=== PATIENT | female | born 1975 | race Caucasian/White ===

== ENCOUNTER 2018-07-04 20:44 | Emergency (ER) | payer MEDICARE, MEDICAID ==
[~2018-07-04] VITALS: Ht 167.6 cm; Wt 90.7 kg
[2018-07-04] MEDS ORDERED: NS IV 1000 ML 1,000 ML IV STA (21:07)
[2018-07-04] MEDS ORDERED: diphenhydrAMINE 50 MG/ML INJ (BENADRYL) IVP STA (21:07)
[2018-07-04] MEDS ORDERED: METOCLOPRAMIDE INJ 10 MG/2 ML (REGLAN) IVP STA (21:07)
[2018-07-04] MEDS ORDERED: LEVETIRACETAM 100 MG/ML (21:15)
[2018-07-04] MEDS ORDERED: MONTELUKAST 10MG TABLETS (21:15)
[2018-07-04] MEDS ORDERED: GABAPENTIN CAP 300MG (21:15)
[2018-07-04] MEDS ORDERED: SUCRALFATE 1 GM (21:15)
[2018-07-04] MEDS ORDERED: JANUVIA 100 MG (21:15)
[2018-07-04] MEDS ORDERED: LISINOPRIL 20MG TABLETS (21:15)
[2018-07-04] MEDS ORDERED: BACLOFEN 20 MG ×2 (21:15)
[2018-07-04] MEDS ORDERED: METOPROLOL TARTRATE 50 MG (21:15)
[2018-07-04] MEDS ORDERED: POTASSIUM CL 10MEQ ER TABLETS (21:15)
[2018-07-04] MEDS ORDERED: FAMO40TA39 (21:16)
--- NOTE | 2018-07-04 21:16 | ED Headache ---
General Chief Complaint: Head/Cervical Problems Stated Complaint: HEADACHE Nursing Triage Note: pt and ems report pt with steiner and chest pain starting at 1999. pt with hx of cva with right side arm paralysis and right leg with limited movement Nursing Sepsis Screen: No Definite Risk Source: patient, family, EMS Exam Limitations: physical impairment History of Present Illness Date Seen by Provider: Jul 04, 2018 Time Seen by Provider: 20:58 This is a 43-year-old female with a history of hypertension, diabetes, stroke with chronic right-sided weakness and expressive aphasia here for headache and chest pain that began tonight. She had a similar headache about a week ago but did not seek medical treatment at that time. The headache started at rest at approximately 8 PM, mom gave patient an oxycodone but ultimately the headache did not go away and she called EMS. Patient was hypertensive, EMS reports a blood pressure in the 170s over 100s range, they treated the patient with 100 g of fentanyl and 4 mg of Zofran. Mom at the bedside does not note any new neurologic deficits tonight. The complaint of chest pain is a new complaint for the patient, there is no known history of coronary artery disease. Allergies and Home Medications Allergies Coded Allergies: cefazolin (Verified Allergy, Unknown, 07/04/18) enoxaparin (Verified Allergy, Unknown, 07/04/18) Uncoded Allergies: PENICILLIN (Allergy, Unknown, 07/04/18) Home Medications Famotidine 40 Mg Tablet, BID, (Reported) Patient Home Medication List Home Medication List Reviewed: Yes Review of Systems Review of Systems Constitutional: no symptoms reported (complete review of systems is unobtainable secondary to expressive aphasia) Cardiovascular: chest pain Psychiatric/Neurological: Headache, Pre-Existing Deficit Past Rhoixpe-Dnegzw-Kqijnx Hx Patient Social History Alcohol Use: Denies Use Recreational Drug Use: No Smoking Status: Never a Smoker 2nd Hand Smoke Exposure: No Recent Foreign Travel: No Contact w/Someone Who Travel: No Recent Infectious Disease Expo: No Recent Hopitalizations: No Physical Abuse: No Sexual Abuse: No Mistreated: No Fear: No Seasonal Allergies Seasonal Allergies: No Past Medical History Respiratory: No Cardiac: No Neurological: Yes (2013 cva) Headaches /Migraines, Paralysis, Spinal Cord Injury Genitourinary: No Gastrointestinal: No Musculoskeletal: No Endocrine: No HEENT: No Cancer: No Psychosocial: No Integumentary: No Blood Disorders: No Physical Exam Vital Signs Vital Signs - First Documented 07/04/18 07/04/18 20:57 22:00 Temp 97.6 Pulse 99 Resp 18 B/P (MAP) 117/101 (106) Pulse Ox 97 O2 Delivery Nasal Cannula O2 Flow Rate 2.00 Capillary Refill : Less Than 3 Seconds Height, Weight, BMI Height: 5'6.00" Weight: 200lbs. oz. 90.653522tf; BMI Method:Stated General Appearance: other (patient appears mildly uncomfortable) HEENT: other (because members are slightly dry. No conjunctival injection. Extraocular muscles are intact. There is anisocoria with right pupil approximately 6 mm, left pupil approximately 4 mm and both are sluggishly reactive) Neck: supple Cardiovascular: normal peripheral pulses, regular rate, rhythm, other ( palpation of the anterior chest causes patient to wince, there are no other palpatory abnormalities) Respiratory: lungs clear, no respiratory distress Gastrointestinal: non tender, soft Psychiatric: alert Crainal Nerves: other (there is mild right lower facial weakness, anisocoria as described above, otherwise cranial nerves appear to be intact) Coordination/Gait: other (grossly normal coordination of the upper and lower extremity) Motor/Sensory: other (baseline right upper and right lower extremity weakness, left upper and left lower extremity have 5 out of 5 strength) Progress/Results/Core Measures Results/Orders Lab Results Laboratory Tests Test 07/04/18 21:09 07/04/18 23:50 Range/Units White Blood Count 11.6 H 4.3-11.0 10^3/uL Red Blood Count 4.76 4.35-5.85 10^6/uL Hemoglobin 10.0 L 11.5-16.0 G/DL Hematocrit 34 L 35-52 % Mean Corpuscular Volume 72 L 80-99 FL Mean Corpuscular Hemoglobin 21 L 25-34 PG Mean Corpuscular Hemoglobin Concent 29 L 32-36 G/DL Red Cell Distribution Width 17.6 H 10.0-14.5 % Platelet Count 247 130-400 10^3/uL Mean Platelet Volume 11.9 H 7.4-10.4 FL Prothrombin Time 12.8 12.2-14.7 SEC INR Comment 1.0 0.8-1.4 Activated Partial Thromboplast Time 28 24-35 SEC Sodium Level 131 L 135-145 MMOL/L Potassium Level 4.3 3.6-5.0 MMOL/L Chloride Level 94 L 98-107 MMOL/L Carbon Dioxide Level 20 L 21-32 MMOL/L Anion Gap 17 H 5-14 MMOL/L Blood Urea Nitrogen 9 7-18 MG/DL Creatinine 0.43 L 0.60-1.30 MG/DL Estimat Glomerular Filtration Rate > 60 BUN/Creatinine Ratio 21 Glucose Level 421 *H 70-105 MG/DL Calcium Level 8.8 8.5-10.1 MG/DL Corrected Calcium 9.3 8.5-10.1 MG/DL Magnesium Level 1.6 L 1.8-2.4 MG/DL Total Bilirubin 0.2 0.1-1.0 MG/DL Aspartate Amino Transf (AST/SGOT) 27 5-34 U/L Alanine Aminotransferase (ALT/SGPT) 28 0-55 U/L Alkaline Phosphatase 146 H 40-136 U/L Troponin T 6 <=10 NG/L Total Protein 6.9 6.4-8.2 GM/DL Albumin 3.4 3.2-4.5 GM/DL Glucometer 373 H 70-110 MG/DL My Orders Orders - ANNIE NNACE DO Magnesium (07/04/18 20:49) Chest 1 View Ap/Pa Only (07/04/18 20:49) Ekg Tracing (07/04/18 20:49) Cardiac Profile 1 (07/04/18 20:49) Comprehensive Metabolic Panel (07/04/18 20:49) Protime With Inr (07/04/18 20:49) Partial Thromboplastin Time (07/04/18 20:49) Monitor-Rhythm Ecg Trace Only (07/04/18 20:49) Saline Lock/Iv-Start (07/04/18 20:49) Cbc No Diff (07/04/18 20:49) Ct Angio Head/Neck (07/04/18 21:05) Metoclopramide Injection (Reglan Injecti (07/04/18 21:07) Diphenhydramine Injection (Benadryl Inje (07/04/18 21:07) Ns Iv 1000 Ml (Sodium Chloride 0.9%) (07/04/18 21:07) Iopamidol 61% Injection (Isovue 300 61% (07/04/18 21:30) Sodium Chloride Flush (Catheter Flush Sy (07/04/18 21:30) Received Contrast (Contrast Received) (07/04/18 21:30) Ns (Ivpb) (Sodium Chloride 0.9% Ivpb Bag (07/04/18 21:30) Insulin (Regular) Human (Humulin R (Per (07/04/18 22:27) Medications Given in ED Current Medications Medications Dose Ordered Sig/Milly Route Start Time Stop Time Status Last Admin Dose Admin Iopamidol 100 ml ONCE ONCE IV 07/04/18 21:30 07/04/18 21:47 DC 07/04/18 21:55 100 ML Sodium Chloride 10 ml NEEDED PRN IV 07/04/18 21:30 07/04/18 21:56 10 ML Sodium Chloride 50 ml ONCE ONCE IV 07/04/18 21:30 07/04/18 21:48 DC 07/04/18 21:56 50 ML Vital Signs/I&O 07/04/18 07/04/18 07/04/18 20:57 22:00 23:38 Temp 97.6 Pulse 99 98 102 Resp 18 15 18 B/P (MAP) 117/101 (106) 122/73 (89) 121/77 (92) Pulse Ox 97 97 96 O2 Delivery Nasal Cannula Nasal Cannula O2 Flow Rate 2.00 2.00 2.00 07/05/18 00:00 Intake Total 1000 ml Balance 1000 ml Blood Pressure Mean: 106 Progress Progress Note #1: Progress Note This is a 43-year-old female with a history of a stroke with chronic right- sided deficits here for headache and chest pain. She is hypertensive. There is no evidence of new neurologic deficit. Patient is not in respiratory distress and has no signs of acute CHF. We will treat her now with Reglan and Benadryl as she has already received oxycodone by mouth and an injection of fentanyl and Zofran by EMS. We will obtain a CT of the brain. Given any consideration of subarachnoid hemorrhage in the differential we will obtain a CT angiogram of the head and also given history provided by mom of neck trauma prior to her stroke in 2013 we will include a CT angiogram of the neck. We will obtain ECG, chest x-ray, troponin. Given patient's risk factors for coronary artery disease , her hypertensive urgency upon arrival, and any limitation in history I feel it is prudent to admit patient for observation once our results have returned. Progress Note #2: Progress Note Patient has returned from imaging, there is some improvement although it is difficult for patient characterized the degree of improvement. She does not appear to be in distress. Blood pressure is improved. We will continue to monitor. Patient does not follow-up with a neurosurgeon although she apparently has a history of a craniotomy. I was unable to palpate shunt tubing around the skull or the neck and mom is not sure of any history of shunt placement. There is no tenderness in that area however. 9 units of IV insulin are administered for hyperglycemia. Progress Note #3: Progress Note Patient was accepted for transfer at 11:[address] Hanna at [facility]. EKG : Comment 2047: Normal sinus rhythm rate of 99. T-wave inversions in V3 and 3. Delayed precordial R-wave progression. Normal axis. Diagnostic Imaging Diagonstic Imaging: Xray Comments EP interpretation: Patient is slightly rotated but airways approximately midline. Low lung volumes. No obvious bony abnormalities. Note made of a left- sided CHAPERONE shunt although entire course is not visualized, there is obscuration of the left costophrenic margin, heart size is top of normal for this AP study, the horizontal fissure is prominent, no pneumothoraces Reviewed: Reviewed by Me Critical Care Note Critical Care Start Time: 23:21 Stop Time: 23:56 Total Time (minutes) 35 Progress Critical care time is exclusive of time spent on separately billable procedures. Risk to multiple organ systems from hypertensive urgency, chest pain , hyperglycemia, time spent at bedside, frequent reassessments, interpretation of EKG, chest x-ray, discussion with radiologist and admitting hospitalist at outside hospital. Departure Impression Primary Impression: Headache Additional Impressions: Hypertensive urgency Chest pain Hyperglycemia T wave inversion in EKG Disposition: 02 XFER SHT-TRM HOSP Condition: Stable Transfer Time Spoke to Accepting Phy: 23:53 Transfer Facility: [facility], accepted by Dr Hanna Method of Transfer: EMS Departure-Patient Inst. Referrals: NO,LOCAL PHYSICIAN (PCP) Primary Care Physician ANNIE NACNE DO Jul 04, 2018 21:16
[2018-07-04 21:22] LABS: WHITE BLOOD COUNT 11.6 10^3/uL (4.3-11.0)
[2018-07-04 21:23] LABS: MEAN PLATELET VOLUME 11.9 FL (7.4-10.4); RED CELL DISTRIBUTION WIDTH 17.6 % (10.0-14.5)
[2018-07-04] MEDS ORDERED: RECEIVED CONTRAST 20 ML VIAL IV SCH (21:30)
[2018-07-04] MEDS ORDERED: NS 50 ML (IVPB) BAG IV ONE (21:30)
[2018-07-04] MEDS ORDERED: CATHETER FLUSH 10 ML SYR IV PRN (21:30)
[2018-07-04] MEDS ORDERED: IOPAMIDOL 61% 100 ML (ISOVUE 300) VIAL IV ONE (21:30)
[2018-07-04 21:45] LABS: PROTHROMBIN TIME PATIENT 12.8 SEC (12.2-14.7)
[2018-07-04 22:00] VITALS: BP 122/73
[2018-07-04 22:01] LABS: BUN/CREATININE RATIO 21; CARBON DIOXIDE 20 MMOL/L (21-32); CHLORIDE 94 MMOL/L (98-107); CREATININE SERUM 0.43 MG/DL (0.60-1.30); GFR ESTIMATED > 60; POTASSIUM 4.3 MMOL/L (3.6-5.0); SODIUM 131 MMOL/L (135-145)
[2018-07-04 22:04] LABS: ALANINE AMINOTRANSFERASE 28 U/L (0-55); ALBUMIN 3.4 GM/DL (3.2-4.5); ALKALINE PHOSPHATASE 146 U/L (40-136); BILIRUBIN,TOTAL 0.2 MG/DL (0.1-1.0); CALCIUM 8.8 MG/DL (8.5-10.1); GLUCOSE 421 MG/DL (70-105); MAGNESIUM 1.6 MG/DL (1.8-2.4); TOTAL PROTEIN 6.9 GM/DL (6.4-8.2)
[2018-07-04] MEDS ORDERED: inSUlin (REGULAR) HUMAN 1 UNIT/0.01 ML (CHARGE PER UNIT) IV STA (22:27)
[2018-07-04 23:38] VITALS: BP 121/77
[2018-07-05 01:10] VITALS: BP 133/81
--- NOTE | 2018-07-05 07:52 | Diagnostic Imaging Report ---
INDICATION: Headache, chest pain, right-sided arm paralysis and limited leg movements. Palpitations. EXAMINATION: Chest 07/04/2018 FINDINGS: Single view frontal chest demonstrates mild prominence of the heart possibly due to the portable technique and low lung volumes. There is atelectasis versus early infiltrates at the bases left greater than right. No significant effusions. No pneumothorax. Pulmonary vasculature unremarkable. IMPRESSION: 1. Densities at the lung bases see above discussion. Dictated by: Dictated on workstation # [id number]
--- NOTE | 2018-07-05 08:25 | Diagnostic Imaging Report ---
INDICATION: Headache with history of stroke and right arm and leg weakness. TECHNIQUE: CTA of the head and neck obtained with axial slices with IV contrast bolus and sagittal and coronal and MIP reconstructions. A pre contrast brain CT was also performed. FINDINGS: Pre contrast brain CT demonstrates a large old left MCA territory infarct. There is no acute intracranial hemorrhage. There is no mass effect or midline shift. Patient has had previous left-sided craniotomy. There is ex-vacuo prominence of the left lateral ventricle due to volume loss. There is no acute-appearing intracranial abnormality. CTA neck findings: The aortic arch and great vessel origins appear unremarkable. There is an anatomic variant of the left vertebral artery arising directly from the arch. Bolus timing is very limited in the neck but the carotid territories and vertebrals appear to be patent. There is no soft tissue mass or adenopathy in the neck region. CTA head findings: CTA head images are very limited due to poor bolus timing. The distal internal carotid arteries and anterior cerebral arteries and middle cerebral arteries appear to be patent. The basilar artery and posterior cerebral arteries appear to be patent. There is patency of the dural venous sinuses. IMPRESSION: 1. CTA head demonstrates a large old left MCA territory infarct with associated volume loss. Patient has had a previous left-sided craniotomy. There is no acute intracranial hemorrhage or definite acute finding. 2. CTA of the neck was very limited by bolus timing. No definite stenotic lesion or occlusion was seen. 3. CTA of the head was also very limited by bolus timing. No overt major vessel stenosis or occlusion was seen. Dictated by: Dictated on workstation # [id number]
== END 2018-07-05 01:10 | disposition short-term general hospital (02) ==
LOC: ER FS 20:47
DX: R51 Headache (principal); I10 Essential (primary) hypertension; I16.0 Hypertensive urgency; E11.65 Type 2 diabetes mellitus with hyperglycemia; R94.31 Abnormal electrocardiogram [ECG] [EKG]; R07.9 Chest pain, unspecified; Z86.69 Personal history of other diseases of the nervous system and sense organs; Z86.73 Personal history of transient ischemic attack (TIA), and cerebral infarction without residual deficits; Z88.0 Allergy status to penicillin; Z88.8 Allergy status to other drugs, medicaments and biological substances
CPT/HCPCS: 36415; 70496; 70498; 71045; 80053; 82962; 83735; 84484; 85027; 85610; 85730

== ENCOUNTER 2018-07-19 15:45 | Emergency (ER) | payer MEDICARE, MEDICAID ==
[~2018-07-19] VITALS: Ht 157.5 cm; Wt 96.6 kg
[~2018-07-19 15:45] MED LIST: BACLOFEN 20 MG; FAMO40TA39; GABAPENTIN CAP 300MG; JANUVIA 100 MG; LEVETIRACETAM 100 MG/ML; LISINOPRIL 20MG TABLETS; METOPROLOL TARTRATE 50 MG; MONTELUKAST 10MG TABLETS; POTASSIUM CL 10MEQ ER TABLETS; SUCRALFATE 1 GM
[2018-07-19] MEDS ORDERED: NITROGLYCERIN 0.4 MG SL TABS BTL 25'S SL PRN (16:00)
[2018-07-19] MEDS ORDERED: ASPIRIN 81 MG CHEW (CHILDREN'S ASA) PO ONE (16:00)
--- NOTE | 2018-07-19 16:02 | ED Chest Pain ---
General Stated Complaint: CHEST PAINS Source: patient Exam Limitations: no limitations (BALBIR CACERES) History of Present Illness Date Seen by Provider: Jul 19, 2018 Time Seen by Provider: 15:46 Initial Comments The patient presents to ER by private conveyance with her family member and chief complaint that about an hour ago while visiting some family and [place], [place] as they got into an argument with her daughter made her very upset and then began to have chest pain on the left side of her chest radiating to her left breast but not the shoulders jaw or neck. She's having no nausea sweats or chills. She describes shortness of breath but no cough fevers or diarrhea. She does have a significant history for hypertension, hypercholesterolemia and diabetes but no hypothyroidism, smoking or coronary disease. She does have a history of a stroke a few years ago with residual right-sided deficits. She's chronically weak in her right leg which makes her difficult transfer without one -person assist. She does not have a history of GERD but she does have quite a bit of anxiety and is easily upset. She was at this ER a few weeks ago with same complaint of chest pain and ended up having a stress test that was unremarkable. (BALBIR CACERES) Allergies and Home Medications Allergies Coded Allergies: cefazolin (Verified Allergy, Unknown, 07/04/18) enoxaparin (Verified Allergy, Unknown, 07/04/18) Uncoded Allergies: PENICILLIN (Allergy, Unknown, 07/04/18) Home Medications Famotidine 40 Mg Tablet, BID, (Reported) Sucralfate 1 Gm Tablet, 1 GM PO TIDAC Prescribed by: MCKENNA HOFFMANN on 07/19/181910 Patient Home Medication List Home Medication List Reviewed: Yes (BALBIR CACERES) Review of Systems Review of Systems Constitutional: No chills, No fever EENTM: No Blurred Vision, No Double Vision Respiratory: Denies Cough, Denies Shortness of Air Cardiovascular: See HPI, Chest Pain; Denies Edema, Denies Lightheadedness, Denies Palpitations, Denies Syncope Gastrointestinal: Denies Constipated, Denies Diarrhea, Denies Nausea Genitourinary: Denies Burning, Denies Discharge Musculoskeletal: No back pain, No joint pain Skin: No pruritus, No rash (BALBIR CACERES) Past Yzzwjzm-Dnygus-Nkimxh Hx Patient Social History Alcohol Use: Denies Use Recreational Drug Use: No Smoking Status: Never a Smoker 2nd Hand Smoke Exposure: No Recent Foreign Travel: No Contact w/Someone Who Travel: No Recent Hopitalizations: No (BALBIR CACERES) Seasonal Allergies Seasonal Allergies: No (BALBIR CACERES) Past Medical History Respiratory: No Cardiac: No Neurological: Yes (2013 cva) Headaches /Migraines, Paralysis, Spinal Cord Injury Genitourinary: No Gastrointestinal: No Musculoskeletal: No Endocrine: No HEENT: No Cancer: No Psychosocial: No Integumentary: No Blood Disorders: No (BALBIR CACERES) Physical Exam Vital Signs Vital Signs - First Documented 07/19/18 15:50 Temp 98.2 Pulse 90 Resp 16 B/P (MAP) 101/80 (87) Pulse Ox 96 O2 Delivery Room Air (MCKENNA HOFFMANN MD) Vital Signs Capillary Refill : (BALBIR CACERES) Height, Weight, BMI Height: 5'6.00" Weight: 200lbs. oz. 90.508733wj; BMI Method:Stated General Appearance: Anxious (tearful, upset), Obese HEENT: PERRL/EOMI, Pharynx Normal, Moist Mucous Membranes Neck: Full Range of Motion, Normal Inspection Respiratory: No Chest Non Tender; Lungs Clear, Normal Breath Sounds, No Accessory Muscle Use, No Respiratory Distress Cardiovascular: Regular Rate, Rhythm, No Edema, No Gallop, No Murmur, Normal Peripheral Pulses Gastrointestinal: Normal Bowel Sounds, Non Tender, Soft Neurologic/Psychiatric: Alert, Oriented x3, Other (and tearful and upset affect. Right sided residual weakness upper and lower extremity. Speech deficits at baseline make it difficult for her to answer more than one word at a time.) Skin: Normal Color, Warm/Dry (BALBIR CACERES) Progress/Results/Core Measures Results/Orders Lab Results Laboratory Tests Test 07/19/18 16:00 07/19/18 18:15 Range/Units White Blood Count 9.8 4.3-11.0 10^3/uL Red Blood Count 5.18 4.35-5.85 10^6/uL Hemoglobin 10.6 L 11.5-16.0 G/DL Hematocrit 37 35-52 % Mean Corpuscular Volume 71 L 80-99 FL Mean Corpuscular Hemoglobin 20 L 25-34 PG Mean Corpuscular Hemoglobin Concent 29 L 32-36 G/DL Red Cell Distribution Width 19.1 H 10.0-14.5 % Platelet Count 280 130-400 10^3/uL Mean Platelet Volume 11.4 H 7.4-10.4 FL Neutrophils (%) (Auto) 61 42-75 % Lymphocytes (%) (Auto) 31 12-44 % Monocytes (%) (Auto) 5 0-12 % Eosinophils (%) (Auto) 3 0-10 % Basophils (%) (Auto) 0 0-10 % Neutrophils # (Auto) 6.0 1.8-7.8 X 10^3 Lymphocytes # (Auto) 3.0 1.0-4.0 X 10^3 Monocytes # (Auto) 0.5 0.0-1.0 X 10^3 Eosinophils # (Auto) 0.3 0.0-0.3 10^3/uL Basophils # (Auto) 0.0 0.0-0.1 10^3/uL Prothrombin Time 13.1 12.2-14.7 SEC INR Comment 1.0 0.8-1.4 Activated Partial Thromboplast Time 29 24-35 SEC Sodium Level 136 135-145 MMOL/L Potassium Level 4.4 3.6-5.0 MMOL/L Chloride Level 97 L 98-107 MMOL/L Carbon Dioxide Level 20 L 21-32 MMOL/L Anion Gap 19 H 5-14 MMOL/L Blood Urea Nitrogen 12 7-18 MG/DL Creatinine 1.02 0.60-1.30 MG/DL Estimat Glomerular Filtration Rate 59 BUN/Creatinine Ratio 12 Glucose Level 268 H 70-105 MG/DL Calcium Level 9.9 8.5-10.1 MG/DL Corrected Calcium 9.7 8.5-10.1 MG/DL Magnesium Level 1.9 1.8-2.4 MG/DL Total Bilirubin 0.3 0.1-1.0 MG/DL Aspartate Amino Transf (AST/SGOT) 36 H 5-34 U/L Alanine Aminotransferase (ALT/SGPT) 51 0-55 U/L Alkaline Phosphatase 145 H 40-136 U/L Myoglobin 16.5 10.0-92.0 NG/ML Troponin T < 6 < 6 <=10 NG/L Pro-B-Type Natriuretic Peptide 10.9 <75.0 PG/ML Total Protein 8.0 6.4-8.2 GM/DL Albumin 4.3 3.2-4.5 GM/DL Lipase 18 8-78 U/L (MCKENNA HOFFMANN MD) Medications Given in ED Current Medications Medications Dose Ordered Sig/Milly Route Start Time Stop Time Status Last Admin Dose Admin Acetaminophen 1,000 mg ONCE ONCE PO 07/19/18 17:45 07/19/18 17:46 DC 07/19/18 17:56 1,000 MG Al Hydrox/Mg Hydrox/Simethicone 30 ml ONCE ONCE PO 07/19/18 16:15 07/19/18 16:16 DC 07/19/18 16:25 30 ML Hydroxyzine Pamoate 25 mg ONCE ONCE PO 07/19/18 16:30 07/19/18 16:31 DC 07/19/18 17:56 25 MG Lidocaine HCl 15 ml ONCE ONCE PO 07/19/18 16:15 07/19/18 16:16 DC 07/19/18 16:25 15 ML (MCKENNA HOFFMANN MD) Vital Signs/I&O 07/19/18 07/19/18 07/19/18 15:50 16:00 19:45 Temp 98.2 98.2 Pulse 90 96 Resp 16 22 B/P (MAP) 101/80 (87) 124/78 (93) Pulse Ox 96 98 O2 Delivery Room Air Room Air Room Air (MCKENNA HOFFMANN MD) Progress Progress Note #1: Time: 16:02 Progress Note She is not on blood thinners or any give her aspirin 324 and a dose of nitroglycerin. Her blood pressure is okay 133 systolic. Her chest pains reproducible by direct palpation of her chest. We'll get an x-ray and if the nitroglycerin does not give her good relief with may also try a GI cocktail. Her chest pain is most likely however related to her anxiety for which she does not routinely take anything. We'll give her some time to calm down. Repeat blood pressure was soft at 101 systolic so we decided not to give the nitroglycerin and instead we'll trial a GI cocktail. We'll try some Vistaril as she is still tearful. ED ACS is 0 points. Low risk by the EDACS Score. If the patient also has: (1) EKG without new ischemic changes and (2) negative initial and 2-hour troponins, then this patient is safe for discharge to early outpatient follow-up investigation (or proceed to earlier inpatient testing). If EKG with ischemic changes or positive troponin, they are not low risk and require normal risk stratification. Progress Note #2: Time: 17:28 Progress Note Patient has a headache so were going to offer her something for her headache. And we'll give her some to drink since she has a dry mouth and see if that helps with her headache as well. Repeat a troponin in 30 minutes at 1800. If the repeat troponin is good she can follow-up with Dr. Leon. For her chronically elevated alkaline phosphatase she can follow-up with Dr. Novoa outpatient. The patient wants whatever she got last time for her headache she received oxycodone, fentanyl and Reglan. She's not having any nausea so Reglan will probably not have much benefit. We'll just give her some Tylenol. (BALBIR CACERES) Progress Note #1: Time: 18:00 Progress Note I assumed care of the patient at shift change pending repeat Troponin T at 1830. Provided this is negative plan to send patient home and have her follow up as outpatient. Progress Note #2: Time: 19:05 Progress Note Repeat Troponin T is still <6 so will discharge on Carafate as previously discussed at shift change. Have pt follow up with clinic as outpt. (MCKENNA HOFFMANN MD) Initial ECG Impression Date: Jul 19, 2018 Initial ECG Impression Time: 15:49 Initial ECG Rate: 94 Initial ECG Rhythm: Normal Sinus Initial ECG Intervals: Normal Initial ECG Impression: Normal, Nonspecific Changes Initial ECG Comparisson: Unchanged Comment Unchanged from a week ago. No evidence of ST elevation or depression. (BALBIR CACERES) Diagnostic Imaging Diagonstic Imaging: Xray Plain Films/CT/US/NM/MRI: chest (1v) Comments [facility], [place] NAME: CAMILLELLOYD Scott MED REC#: [id number] PT STATUS: REG ER : 1975 PHYSICIAN: BALBIR CACERES MD ADMIT DATE: 07/19/18/ER FS Draft Date of Exam:07/19/18 CHEST 1 VIEW AP/PA ONLY EXAMINATION: Portable erect AP chest at 3:34 p.m. INDICATION: Chest pain. FINDINGS: The heart size is within normal limits, and the heart does seem less prominent than noted on the prior exam of 07/04/2018. The lung bases also appear better aerated than on the prior study. There still appears to be a small amount of residual atelectasis/infiltrate bilaterally, particularly on the left. The upper lungs remain clear. The mediastinum is not widened. The osseous structures are intact. IMPRESSION: The appearance of the chest has improved since the prior exam as the heart has decreased in size and the lung bases do seem better aerated. Dictated on workstation # [id number] Dict: 07/19/18 1643 Trans: 07/19/18 1650 [id number] Interpreted by: CRUZ FARIA MD Electronically signed by: Reviewed: Reviewed by Me (BALBIR CACERES) Transfer of Care Time: 18:01 Care transferred to: Dr Hoffmann (BALBIR CACERES) Departure Impression Primary Impression: Chest pain Qualified Codes: R07.9 - Chest pain, unspecified Additional Impressions: Anxiety Headache Qualified Codes: G44.209 - Tension-type headache, unspecified, not intractable Elevated alkaline phosphatase level Disposition: 01 HOME, SELF-CARE Condition: Stable Departure-Patient Inst. Decision time for Depature: 19:09 (MCKENNA HOFFMANN MD) Referrals: NO,LOCAL PHYSICIAN (PCP) Primary Care Physician NICKY NOVOA MD, BASHAR J MD Patient Instructions: Chest Pain That Is Not Caused by the Heart (DC) Add. Discharge Instructions: Make a follow-up appointment in the next 2-4 weeks to discuss your elevated alkaline phosphatase with your primary care provider. Tomorrow call Dr. Leon and request an appointment on follow-up for your chest pain. If you begin to have chest pain again you should return to the nearest ER for further evaluation. Consider Carafate to help with a possible GI source of your chest pain. Scripts Sucralfate (Carafate) 1 Gm Tablet 1 GM PO TIDAC for chest pain/reflux for 15 Days, TAB 0 Refills Prov: MCKENNA HOFFMANN MD 07/19/18 Copy Copies To 1: STU LEON MD, TITUS J Jul 19, 2018 16:02 MCKENNA HOFFMANN MD Jul 19, 2018 18:34
[2018-07-19] MEDS ORDERED: FAMOTIDINE 20 MG (PEPCID) TABLET PO STA (16:12)
[2018-07-19] MEDS ORDERED: ANTACID SUSP 30 ML UDC (MYLANTA) PO ONE (16:15)
[2018-07-19] MEDS ORDERED: LIDOCAINE 2% VISCOUS 15 ML UDC PO ONE (16:15)
[2018-07-19 16:23] LABS: HEMATOCRIT 37 % (35-52); HEMOGLOBIN 10.6 G/DL (11.5-16.0); MEAN CORPUSCULAR HEMOGLOBIN 20 PG (25-34); MEAN CORPUSCULAR VOLUME 71 FL (80-99); WHITE BLOOD COUNT 9.8 10^3/uL (4.3-11.0)
[2018-07-19 16:24] LABS: BASOPHILS % (AUTO) 0 % (0-10); EOSINOPHILS # (AUTO) 0.3 10^3/uL (0.0-0.3); EOSINOPHILS % (AUTO) 3 % (0-10); LYMPHOCYTES % (AUTO) 31 % (12-44); MEAN CORPUSCULAR HGB CONC 29 G/DL (32-36); MEAN PLATELET VOLUME 11.4 FL (7.4-10.4); MONOCYTES # (AUTO) 0.5 X 10^3 (0.0-1.0); MONOCYTES % (AUTO) 5 % (0-12); NEUTROPHILS % (AUTO) 61 % (42-75); PLATELET COUNT 280 10^3/uL (130-400); RED CELL DISTRIBUTION WIDTH 19.1 % (10.0-14.5)
[2018-07-19] MEDS ORDERED: hydrOXYzine (VISTARIL) 25 MG capsule/tablet PO ONE (16:30)
[2018-07-19 16:41] LABS: PROTHROMBIN TIME PATIENT 13.1 SEC (12.2-14.7)
--- NOTE | 2018-07-19 16:50 | Diagnostic Imaging Report ---
EXAMINATION: Portable erect AP chest at 3:34 p.m. INDICATION: Chest pain. FINDINGS: The heart size is within normal limits, and the heart does seem less prominent than noted on the prior exam of 07/04/2018. The lung bases also appear better aerated than on the prior study. There still appears to be a small amount of residual atelectasis/infiltrate bilaterally, particularly on the left. The upper lungs remain clear. The mediastinum is not widened. The osseous structures are intact. IMPRESSION: The appearance of the chest has improved since the prior exam as the heart has decreased in size and the lung bases do seem better aerated. Dictated by: Dictated on workstation # [id number]
[2018-07-19 16:54] LABS: POTASSIUM 4.4 MMOL/L (3.6-5.0)
[2018-07-19 16:55] LABS: ALBUMIN 4.3 GM/DL (3.2-4.5); BILIRUBIN,TOTAL 0.3 MG/DL (0.1-1.0); CALCIUM 9.9 MG/DL (8.5-10.1); CREATININE SERUM 1.02 MG/DL (0.60-1.30); MAGNESIUM 1.9 MG/DL (1.8-2.4)
[2018-07-19] MEDS ORDERED: ACETAMINOPHEN 500 MG TAB (TYLENOL) PO ONE (17:45)
[2018-07-19] MEDS ORDERED: SUCR1TAB36 PO (19:11)
[2018-07-19 19:45] VITALS: BP 124/78
[2018-07-19 23:23] LABS: MYOGLOBIN SERUM 16.5 NG/ML (10.0-92.0)
== END 2018-07-19 19:45 | disposition home or self-care (01) ==
LOC: EDUNIT# 15:45 → ER FS 15:46
DX: R07.9 Chest pain, unspecified (principal); F41.9 Anxiety disorder, unspecified; R51 Headache; R74.8 Abnormal levels of other serum enzymes; I10 Essential (primary) hypertension; E78.00 Pure hypercholesterolemia, unspecified; E11.9 Type 2 diabetes mellitus without complications; Z88.0 Allergy status to penicillin; Z88.1 Allergy status to other antibiotic agents; Z88.8 Allergy status to other drugs, medicaments and biological substances; Z86.73 Personal history of transient ischemic attack (TIA), and cerebral infarction without residual deficits; Z86.69 Personal history of other diseases of the nervous system and sense organs
CPT/HCPCS: 36415; 71045; 80053; 83690; 83735; 83874; 83880; 84484; 85025; 85610; 85730; 93005; 93041

== ENCOUNTER 2018-07-28 22:08 | Emergency (ER) | payer MEDICARE, MEDICAID ==
[~2018-07-28] VITALS: Ht 157.5 cm; Wt 96.6 kg
[~2018-07-28 22:08] MED LIST changes: +SUCR1TAB36 PO
--- NOTE | 2018-07-28 23:27 | ED General ---
General Chief Complaint: Chest Pain Stated Complaint: PT WHOLE BODY IS ITCHING Nursing Triage Note: Pt arrived to ER with mother by private vehicle with chief complaint of hives. Pt's mom stated that she was sitting in chair watching TV when she started to itch. Pt took 2 benadryl at 2100 when it started. Pt complains of left side chest pain and told registration that they aren't for sure if its from the itching and told reg crew clerk that they don't think its cardiac relation. Pt started complaining of headache in the room and stated they previously did IV medications. Nursing Sepsis Screen: No Definite Risk Source of Information: Patient, Family (Mom) History of Present Illness Date Seen by Provider: Jul 28, 2018 Time Seen by Provider: 22:50 Initial Comments 43-year-old female presenting with overall body rash and itching. She was sitting at home watching TV when she started itching around 8:30 or 9 PM. Mom states that there is not been anything new or different for to trigger these symptoms for her. She has had similar symptoms in the past and even to the point of having or throat swelling. She has had to be admitted overnight to have the symptoms treated previously. Mom has tried giving 50 mg of Benadryl around 9 PM when her symptoms started. She was not feeling like there was any improvement. She also started to have a left-sided headache and left-sided chest pain. She's had the same symptoms several times. The chest pain and headache seem to be related to stress as well as reflux. She is unsure what could be causing hives and itching. She denies anything new or different other than the new puzzle that she definitely was working on several hours before this. Allergies and Home Medications Allergies Coded Allergies: cefazolin (Verified Allergy, Unknown, 07/04/18) enoxaparin (Verified Allergy, Unknown, 07/04/18) Uncoded Allergies: PENICILLIN (Allergy, Unknown, 07/04/18) Home Medications Famotidine 40 Mg Tablet, BID, (Reported) Famotidine 20 Mg Tablet, 20 MG PO BID Prescribed by: MCKENNA HOFFMANN on 07/29/18 010 Hydroxyzine HCl 25 Mg Tablet, 25-50 MG PO Q6H PRN for ITCHING AND RASH Prescribed by: MCKENNA HOFFMANN on 07/29/18106 Prednisone 20 Mg Tab, 20 MG PO DAILY Prescribed by: MCKENNA HOFFMANN on 07/29/18 0107 Sucralfate 1 Gm Tablet, 1 GM PO TIDAC Prescribed by: MCKENNA HOFFMANN on 07/19/18 1911 Patient Home Medication List Home Medication List Reviewed: Yes Review of Systems Review of Systems Constitutional: No chills, No fever, No malaise EENTM: No nose congestion, No throat pain, No throat swelling Respiratory: No cough, No short of breath Cardiovascular: see HPI Gastrointestinal: no symptoms reported Genitourinary: no symptoms reported Musculoskeletal: no symptoms reported Skin: see HPI Psychiatric/Neurological: Anxiety, Headache Immunological/Allergic: see HPI Past Bteavrg-Rreabw-Iruuvt Hx Past Med/Social Hx: Reviewed Nursing Past Med/Soc Hx Patient Social History Alcohol Use: Denies Use Recreational Drug Use: No 2nd Hand Smoke Exposure: No Recent Foreign Travel: No Contact w/Someone Who Travel: No Recent Infectious Disease Expo: No Recent Hopitalizations: No Physical Abuse: No Sexual Abuse: No Mistreated: No Fear: No Seasonal Allergies Seasonal Allergies: No Past Medical History Surgeries: No Respiratory: No Cardiac: Yes High Cholesterol, Hypertension Neurological: Yes (2013 cva) Headaches /Migraines, Paralysis, Spinal Cord Injury Genitourinary: No Gastrointestinal: No Musculoskeletal: No Endocrine: Yes Diabetes, Non-Insulin dep HEENT: No Cancer: No Psychosocial: No Integumentary: No Blood Disorders: No Physical Exam Vital Signs Vital Signs - First Documented 07/28/18 22:55 Temp 97.1 Pulse 97 Resp 17 B/P (MAP) 124/81 (95) Pulse Ox 93 O2 Delivery Room Air Capillary Refill : Less Than 3 Seconds Height, Weight, BMI Height: 5'2.00" Weight: 213lbs. 0oz. 96.292550us; BMI Method:Stated General Appearance: No Apparent Distress, WD/WN, Obese HEENT: PERRL/EOMI, TMs Normal, Normal ENT Inspection, Pharynx Normal, Moist Mucous Membranes Neck: Non Tender, Supple Respiratory: Chest Non Tender, Lungs Clear, Normal Breath Sounds, No Accessory Muscle Use, No Respiratory Distress Cardiovascular: Regular Rate, Rhythm, Normal Peripheral Pulses Gastrointestinal: Normal Bowel Sounds, No Pulsatile Mass, Non Tender, Soft Neurologic/Psychiatric: Alert Skin: Warm/Dry, Rash (mild diffuse urticarial rash) Progress/Results/Core Measures Suspected Sepsis Recent Fever Within 48 Hours: No Infection Criteria Present: None New/Unexplained Altered Menta: No Sepsis Screen: No Definite Risk SIRS Temperature:97.1 Pulse: 97 Respiratory Rate: 17 Blood Pressure 124 /81 Mean: 95 Results/Orders My Orders Orders - MCKENNA HOFFMANN MD Methylprednisolone Sod Succ (Solu-Medrol (07/28/18 23:30) Fentanyl Injection (Sublimaze Injection (07/28/18 23:30) Diphenhydramine Injection (Benadryl Inje (07/28/18 23:30) Ketorolac Injection (Toradol Injection) (07/28/18 23:30) Ns Iv 1000 Ml (Sodium Chloride 0.9%) (07/28/18 23:30) Iv Heplock-Insert (Order) (07/28/18 23:25) Famotidine Injection (Pepcid Injection) (07/29/18 01:00) Hydroxyzine Cap/Tab (Vistaril) (07/29/18 01:00) Medications Given in ED Current Medications Medications Dose Ordered Sig/Milly Route Start Time Stop Time Status Last Admin Dose Admin Diphenhydramine HCl 50 mg ONCE ONCE IVP 07/28/18 23:30 07/28/18 23:31 DC 07/28/18 23:36 50 MG Famotidine 20 mg ONCE ONCE IVP 07/29/18 01:00 07/29/18 01:01 DC 07/29/18 01:10 20 MG Fentanyl Citrate 100 mcg ONCE ONCE IVP 07/28/18 23:30 07/28/18 23:31 DC 07/28/18 23:36 100 MCG Hydroxyzine Pamoate 25 mg ONCE ONCE PO 07/29/18 01:00 07/29/18 01:01 DC 07/29/18 01:10 25 MG Ketorolac Tromethamine 30 mg ONCE ONCE IVP 07/28/18 23:30 07/28/18 23:31 DC 07/28/18 23:35 30 MG Methylprednisolone Sodium Succinate 125 mg ONCE ONCE IVP 07/28/18 23:30 07/28/18 23:31 DC 07/28/18 23:34 125 MG Vital Signs/I&O 07/28/18 22:55 Temp 97.1 Pulse 97 Resp 17 B/P (MAP) 124/81 (95) Pulse Ox 93 O2 Delivery Room Air Capillary Refill : Less Than 3 Seconds Blood Pressure Mean: 95 Progress Note #1: Progress Note With her having a history of allergic reaction causing her to have her throat felt like it was swelling Will obtain an IV and give her steroid in addition to Benadryl and monitor her. She has no evidence of stridor or swelling of her airway on exam here. Her headache we will try treating with a dose of fentanyl since she takes chronic pain medicine as well as Toradol. Will also try some IV fluids for hydration. Progress Note #2: Time: 23:55 Progress Note After infusion of medications she became sedated and did require some supplemental oxygen as her O2 sat has decreased. She was still easily arousable. Her headache was improving with treatment. She states that the itching was slowly improving. She is given all time for the medicines to work and will recheck on the patient. Progress Note #3: Time: 01:00 Progress Note After giving a little more time for the medications to work for her, on recheck she was improved and her headache has significantly improved. Her itching was slowly improving. We will add on a dose of Pepcid by IV and Atarax by mouth. Whelps and on discharging him with Atarax and a prescription for prednisone however she was warned that the steroids would increase her sugars. Counseled to check back with the primary doctor as she may need to have additional allergy immunology testing if she continues to have high medicine symptoms. We will prescribe Pepcid for home as well as the few days of a low-dose steroid. Departure Impression Primary Impression: Hives Additional Impression: Headache Qualified Codes: R51 - Headache Disposition: 01 HOME, SELF-CARE Condition: Stable Departure-Patient Inst. Decision time for Depature: 01:03 Referrals: NO,LOCAL PHYSICIAN (PCP) Primary Care Physician Patient Instructions: Acid Reflux (Gastroesophageal Reflux Disease), Adult (DC) , Headache, Adult (DC), Hives (DC) Add. Discharge Instructions: Overnight you could take Benadryl 25-50 mg every 4 hours as needed for rash/ itching. If you needed to continue on medicine during the day you could fill the prescription for Hydroxyzine (Atarax) 25 mg and take 1-2 pills every 6 hours for itching. You may also try taking the prednisone or steroid for itching if needed but this will cause your sugars to run high while you take the steroid. Check back with Dr. Esteban and if you have continued problems with rash/itching she may consider referral to an allergy/immunology doctor for further testing. All discharge instructions reviewed with patient and/or family. Voiced understanding. Scripts Famotidine (Acid Size Maker (FAMOTIDINE)) 20 Mg Tablet 20 MG PO BID for Itching for 5 Days, #10 TAB 0 Refills Prov: MCKENNA HOFFMANN MD 07/29/18 Prednisone (Prednisone) 20 Mg Tab 20 MG PO DAILY for Itching and Rash for 5 Days, #5 TAB 0 Refills Prov: MCKENNA HOFFMANN MD 07/29/18 Hydroxyzine HCl (Hydroxyzine HCl) 25 Mg Tablet 25-50 MG PO Q6H PRN for ITCHING AND RASH for 5 Days, #30 TAB 0 Refills Prov: MCKENNA HOFFMANN MD 07/29/18 MCKENNA HOFFMANN MD Jul 28, 2018 23:27
[2018-07-28] MEDS ORDERED: methylPREDNISolone 125 MG (Solu-MEDROL) VIAL IVP ONE (23:30)
[2018-07-28] MEDS ORDERED: NS IV 1000 ML 1,000 ML IV SCH (23:30)
[2018-07-28] MEDS ORDERED: fentaNYL INJECTION 100 MCG/2 ML AMP IVP ONE (23:30)
[2018-07-28] MEDS ORDERED: KETOROLAC 30 MG/ML VIAL IVP ONE (23:30)
[2018-07-28] MEDS ORDERED: diphenhydrAMINE 50 MG/ML INJ (BENADRYL) IVP ONE (23:30)
[2018-07-29] MEDS ORDERED: hydrOXYzine (VISTARIL) 25 MG capsule/tablet PO ONE (01:00)
[2018-07-29] MEDS ORDERED: FAMOTIDINE 20MG/2ML IV (PEPCID) IVP ONE (01:00)
[2018-07-29] MEDS ORDERED: PRD20T PO (01:07)
[2018-07-29] MEDS ORDERED: HYDR-700 PO (01:07)
[2018-07-29] MEDS ORDERED: FAMO20TA3 PO (01:08)
[2018-07-29 01:45] VITALS: BP 116/72
== END 2018-07-29 01:45 | disposition home or self-care (01) ==
LOC: EDUNIT# 22:08 → ER FS 22:09
DX: L50.9 Urticaria, unspecified (principal); R51 Headache; I10 Essential (primary) hypertension; E78.00 Pure hypercholesterolemia, unspecified; E11.9 Type 2 diabetes mellitus without complications; Z86.69 Personal history of other diseases of the nervous system and sense organs; Z88.1 Allergy status to other antibiotic agents; Z79.01 Long term (current) use of anticoagulants; Z88.0 Allergy status to penicillin

== ENCOUNTER 2018-11-04 12:20 | Emergency (ER) | payer MEDICARE, MEDICAID ==
[~2018-11-04] VITALS: Ht 157.5 cm; Wt 96.6 kg
[~2018-11-04 12:20] MED LIST changes: +FAMO20TA3 PO; +HYDR-700 PO; +PRD20T PO
--- OUTSIDE RECORDS SUMMARY | 2018-11-04 12:25 | XMS REPORT ---
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 438.31 Mar, 0 530028257 Problem 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 Jan, 0 Problem 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 995.66 Jan, 0 Problem Cerebral infarction I63.9 Aug, 0 497826814 Problem Cerebral infarction 434.91 Aug, 0 778721506 Problem HTN (hypertension), benign I10 Aug, 0 50822495 Problem Speech and language deficit as late effect of cerebrovascular accident (CVA) 438.10 August, 0 288881796 Problem Iron deficiency anemia D50.9 August, 0 94064920 Problem Acute left-sided low back pain without sciatica 724.2 August, 0 344346452 Problem 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 438.21 August, 0 223518060 Problem Speech and language deficit as late effect of cerebrovascular accident (CVA) I69.328 August, 0 Problem Status post laparoscopic cholecystectomy Z90.49 Dec, 0 634055524 Problem Acute left-sided low back pain without sciatica M54.5 August, 0 822654287 Problem Gastroesophageal reflux disease with esophagitis K21.0 Jan, 0 019139225 Problem Type 2 diabetes mellitus without complication 250.00 09 Dec, 2015 0 388775418 Problem Late effects of CVA (cerebrovascular accident) I69.90 13 Aug, 2017 0 286098726 Problem Type 2 diabetes mellitus without complication E11.9 09 Dec, 2015 0 705899768 Problem Morbid obesity with BMI of 40.0-44.9, adult E66.01 Mar, 0 547329199 Problem Lactic acidosis 276.2 August, 0 69461663 Problem Anxiety state F41.1 Jan, 0 875302695 Problem Headache R51 Aug, 0 74560842 Problem Eosinophilic esophagitis K20.0 Aug, 0 011894927 Problem Late effects of CVA (cerebrovascular accident) 438.9 13 Aug, 2017 0 849861248 Problem Headache 784.0 Aug, 0 27784146 Problem Gastroesophageal reflux disease with esophagitis 530.11 Jan, 0 662332222 Problem Eosinophilic esophagitis 530.13 Aug, 0 260757313 Problem Status post laparoscopic cholecystectomy V45.89 Dec, 0 196994703 Problem Lactic acidosis E87.2 August, 0 29449998 Problem Morbid obesity with BMI of 40.0-44.9, adult 278.01 Mar, 0 848368096 Problem HTN (hypertension), benign 401.1 Aug, 0 97094895 Problem Iron deficiency anemia 280.9 August, 0 72028550 Problem Anxiety state 300.00 Jan, 0 029871131 ALLERGIES No Information ENCOUNTERS Encounter Location Date Diagnosis [address] [address] Aug, [address] [address] Aug, Unspecified injury of head, sequela S09.90XS [address] [address] Jul, [address] [address] Jul, Unspecified injury of head, sequela S09.90XS and Post-traumatic headache, unspecified, not intractable G44.[address] [address] Jul, [address] [place] [address] Jul, Vaginal itching N89.8 [facility] [address] [place] [address] Jul, Vaginal itching N89.8 [facility] [address] [facility] [id number] [address] May, [facility] [address], [place] [address] Apr, [facility] [address] [facility] [id number], [place] [address] Apr, [facility] [address], [place] [address] Oct, [facility] [address] [facility] [id number], [place] [address] Oct, IMMUNIZATIONS No Known Immunizations SOCIAL HISTORY Never Assessed REASON FOR VISIT Requests return call PLAN OF CARE VITAL SIGNS MEDICATIONS Unknown Medications RESULTS No Results PROCEDURES No Known procedures INSTRUCTIONS MEDICATIONS ADMINISTERED No Known Medications
--- OUTSIDE RECORDS SUMMARY | 2018-11-04 12:25 | XMS REPORT ---
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 438.31 Mar, 0 051149182 Problem 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 Jan, 0 Problem 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 995.66 Jan, 0 Problem Cerebral infarction I63.9 Aug, 0 497644363 Problem Cerebral infarction 434.91 Aug, 0 113083656 Problem HTN (hypertension), benign I10 Aug, 0 65998619 Problem Speech and language deficit as late effect of cerebrovascular accident (CVA) 438.10 August, 0 590352539 Problem Iron deficiency anemia D50.9 August, 0 63144911 Problem Acute left-sided low back pain without sciatica 724.2 August, 0 077388884 Problem 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 438.21 August, 0 897724484 Problem Speech and language deficit as late effect of cerebrovascular accident (CVA) I69.328 August, 0 Problem Status post laparoscopic cholecystectomy Z90.49 Dec, 0 068420792 Problem Acute left-sided low back pain without sciatica M54.5 August, 0 429536626 Problem Gastroesophageal reflux disease with esophagitis K21.0 Jan, 0 985094119 Problem Type 2 diabetes mellitus without complication 250.00 09 Dec, 2015 0 366080243 Problem Late effects of CVA (cerebrovascular accident) I69.90 13 Aug, 2017 0 589589319 Problem Type 2 diabetes mellitus without complication E11.9 09 Dec, 2015 0 459790279 Problem Morbid obesity with BMI of 40.0-44.9, adult E66.01 Mar, 0 573397612 Problem Lactic acidosis 276.2 August, 0 26579348 Problem Anxiety state F41.1 Jan, 0 422361465 Problem Headache R51 Aug, 0 35795257 Problem Eosinophilic esophagitis K20.0 Aug, 0 932894891 Problem Late effects of CVA (cerebrovascular accident) 438.9 13 Aug, 2017 0 723326034 Problem Headache 784.0 Aug, 0 65170040 Problem Gastroesophageal reflux disease with esophagitis 530.11 Jan, 0 020595160 Problem Eosinophilic esophagitis 530.13 Aug, 0 005812021 Problem Status post laparoscopic cholecystectomy V45.89 Dec, 0 535727594 Problem Lactic acidosis E87.2 August, 0 46801999 Problem Morbid obesity with BMI of 40.0-44.9, adult 278.01 Mar, 0 128060128 Problem HTN (hypertension), benign 401.1 Aug, 0 13234234 Problem Iron deficiency anemia 280.9 August, 0 11550315 Problem Anxiety state 300.00 Jan, 0 830064236 ALLERGIES No Information ENCOUNTERS Encounter Location Date Diagnosis [address] [address] Aug, [address] [address] Aug, Unspecified injury of head, sequela S09.90XS [address] [address] Jul, [address] [address] Jul, Unspecified injury of head, sequela S09.90XS and Post-traumatic headache, unspecified, not intractable G44.[address] [address] Jul, [address] [place] [address] Jul, Vaginal itching N89.8 [facility] [address] [place] [address] Jul, Vaginal itching N89.8 [facility] [address] [facility] [id number] [address] May, [facility] [address] [address] Apr, [facility] [address] [facility] [id number] [address] Apr, [facility] [address] [facility] [id number], [place] [address] Oct, [facility] [address] [facility] [id number], [place] [address] Oct, IMMUNIZATIONS No Known Immunizations SOCIAL HISTORY Never Assessed REASON FOR VISIT Medication PLAN OF CARE VITAL SIGNS MEDICATIONS Medication Instructions Dosage Frequency Start Date End Date Duration Status Diflucan 150 MG Orally then repeat in 3 days if needed 1 tablet Jul, 1 dose Active RESULTS No Results PROCEDURES No Known procedures INSTRUCTIONS MEDICATIONS ADMINISTERED No Known Medications
--- OUTSIDE RECORDS SUMMARY | 2018-11-04 12:26 | XMS REPORT | Continuity of Care Document ---
Author Organization Unknown Address Unknown Allergies There is no data. Medications There is no data. Problems There is no data. Procedures There is no data. Results Test Result Range D-DIMER - 10/06/18 12:14 D-DIMER, QUANTITATIVE <0.19 mcg/mL FEU <0.50 A1C - 10/06/18 12:14 HEMOGLOBIN A1c 7.9 % of total Hgb <5.7 Encounters ACCT No. Visit Date/Time Discharge Status Pt. Type Provider Facility Loc./Unit Complaint [id number] 10/06/2018 11:00:00 10/06/2018 23:59:59 [facility] Outpatient NICKY NOVOA [facility] [id number] 10/06/2018 11:00:00 Document Registration
--- OUTSIDE RECORDS SUMMARY | 2018-11-04 12:26 | XMS REPORT ---
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 438.31 Mar, 0 729038924 Problem 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 Jan, 0 Problem 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 995.66 Jan, 0 Problem Cerebral infarction I63.9 Aug, 0 222629763 Problem Cerebral infarction 434.91 Aug, 0 481856009 Problem HTN (hypertension), benign I10 Aug, 0 95960167 Problem Speech and language deficit as late effect of cerebrovascular accident (CVA) 438.10 August, 0 105390372 Problem Iron deficiency anemia D50.9 August, 0 04856725 Problem Acute left-sided low back pain without sciatica 724.2 August, 0 037146266 Problem 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 438.21 August, 0 519236865 Problem Speech and language deficit as late effect of cerebrovascular accident (CVA) I69.328 August, 0 Problem Status post laparoscopic cholecystectomy Z90.49 Dec, 0 368975631 Problem Acute left-sided low back pain without sciatica M54.5 August, 0 414003093 Problem Gastroesophageal reflux disease with esophagitis K21.0 Jan, 0 013863378 Problem Type 2 diabetes mellitus without complication 250.00 09 Dec, 2015 0 903759902 Problem Late effects of CVA (cerebrovascular accident) I69.90 13 Aug, 2017 0 026034181 Problem Type 2 diabetes mellitus without complication E11.9 09 Dec, 2015 0 614490208 Problem Morbid obesity with BMI of 40.0-44.9, adult E66.01 Mar, 0 683323729 Problem Lactic acidosis 276.2 August, 0 59742163 Problem Anxiety state F41.1 Jan, 0 217591161 Problem Headache R51 Aug, 0 54360637 Problem Eosinophilic esophagitis K20.0 Aug, 0 354287242 Problem Late effects of CVA (cerebrovascular accident) 438.9 13 Aug, 2017 0 787265582 Problem Headache 784.0 Aug, 0 74868019 Problem Gastroesophageal reflux disease with esophagitis 530.11 Jan, 0 942654914 Problem Eosinophilic esophagitis 530.13 Aug, 0 830585293 Problem Status post laparoscopic cholecystectomy V45.89 Dec, 0 605572092 Problem Lactic acidosis E87.2 August, 0 90857801 Problem Morbid obesity with BMI of 40.0-44.9, adult 278.01 Mar, 0 246563189 Problem HTN (hypertension), benign 401.1 Aug, 0 37734864 Problem Iron deficiency anemia 280.9 August, 0 56029396 Problem Anxiety state 300.00 Jan, 0 930047372 ALLERGIES No Information ENCOUNTERS Encounter Location Date Diagnosis [address] [address] Aug, [address] [address] Aug, Unspecified injury of head, sequela S09.90XS [address] [address] Jul, [address] [address] Jul, Unspecified injury of head, sequela S09.90XS and Post-traumatic headache, unspecified, not intractable G44.[address] [address] Jul, [address] [place] [address] Jul, Vaginal itching N89.[address] [address] Jul, Vaginal itching N89.8 [facility] [address] [facility] [id number], [place] [address] May, [facility] [address] [facility] [id number], [place] [address] Apr, [facility] [address] [facility] [id number], [place] [address] Apr, [facility] [address] [facility] [id number], [place] [address] Oct, [facility] [address] [facility] [id number], [place] [address] Oct, IMMUNIZATIONS No Known Immunizations SOCIAL HISTORY Never Assessed REASON FOR VISIT UTI PLAN OF CARE VITAL SIGNS MEDICATIONS Medication Instructions Dosage Frequency Start Date End Date Duration Status Metoclopramide HCl 5 TAKE 1 TABLET (5 MG) BY MOUTH 4 TIMES DAILY BEFORE MEALS AND AT BEDTIME. 30 Unknown Montelukast Sodium 10 TAKE 1 TABLET (10 MG) BY MOUTH DAILY AT BEDTIME. 30 Unknown Gabapentin 300 TAKE 2 CAPSULES (600 MG) BY MOUTH 4 TIMES DAILY. 30 Unknown Diflucan 150 MG Orally then repeat in 3 days 1 tablet Jul, 1 dose Active RESULTS Name Result Date Reference Range UA LONG DIP (IN HOUSE) Lot # Exp date Clarity slightly cloudy Color other Odor yes GLU 500 ANICETO negative KET 40 SG 1.015 BLO negative pH 5.5 Protein negative URO 0.2 NIT negative ROMAN negative Lot # Exp date PROCEDURES Procedure Date Ordered Result Body Site URINALYSIS, AUTO, W/O SCOPE July 07, 2018 INSTRUCTIONS MEDICATIONS ADMINISTERED No Known Medications
--- NOTE | 2018-11-04 12:38 | ED Chest Pain ---
General Stated Complaint: CHEST PAIN; SOB Source: patient, family, RN notes reviewed Exam Limitations: no limitations History of Present Illness Date Seen by Provider: Nov 04, 2018 Time Seen by Provider: 12:35 Initial Comments Patient brought to the ED from rehab p/ developing chest pain while performing arm presses. States the discomfort made her feel SOB. No N/V, or diaphoresis. Also reports some LLE shooting pain. Patient has an extensive PMH. Timing/Duration: other Severity/Quality: moderate, sharp, stabbing Location: central Radiation: no radiation Activities at Onset: other (rehab) Prior CP/Workup: stress test Modifying Factors: improves with other (none) ASA po DISEASE CONTROL INSPECTOR: No NTG SL DISEASE CONTROL INSPECTOR: No Associated Symptoms: denies symptoms (x/ as noted.), shortness of breath Allergies and Home Medications Allergies Coded Allergies: cefazolin (Verified Allergy, Unknown, 07/04/18) enoxaparin (Verified Allergy, Unknown, 07/04/18) Uncoded Allergies: PENICILLIN (Allergy, Unknown, 07/04/18) Home Medications Famotidine 40 Mg Tablet, BID, (Reported) Famotidine 20 Mg Tablet, 20 MG PO BID Prescribed by: MCKENNA HOFFMANN on 07/29/18 010 Hydroxyzine HCl 25 Mg Tablet, 25-50 MG PO Q6H PRN for ITCHING AND RASH Prescribed by: MCKENNA HOFFMANN on 07/29/18 010 Meloxicam 7.5 Mg Tablet, 7.5 MG PO Q12H PRN for chest/leg pain Prescribed by: TAHIRA WATERS on 11/04/18 1509 Prednisone 20 Mg Tab, 20 MG PO DAILY Prescribed by: MCKENNA HOFFMANN on 07/29/18106 Sucralfate 1 Gm Tablet, 1 GM PO TIDAC Prescribed by: MCKENNA HOFFMANN on 07/19/18 1911 Patient Home Medication List Home Medication List Reviewed: Yes Review of Systems Review of Systems Constitutional: see HPI Cardiovascular: See HPI, Chest Pain Musculoskeletal: see HPI, other (shooting LLE pain) All Other Systems Reviewed Negative Unless Noted: Yes (Negative excepted noted.) Past Hqqwukx-Fbtjzh-Preqpu Hx Patient Social History 2nd Hand Smoke Exposure: No Recent Hopitalizations: No Seasonal Allergies Seasonal Allergies: No Past Medical History Surgeries: No Respiratory: No Cardiac: Yes High Cholesterol, Hypertension Neurological: Yes (2013 cva) Headaches /Migraines, Paralysis, Spinal Cord Injury Genitourinary: No Gastrointestinal: No Musculoskeletal: No Endocrine: Yes Diabetes, Non-Insulin dep HEENT: No Cancer: No Psychosocial: No Integumentary: No Blood Disorders: No Physical Exam Vital Signs Vital Signs - First Documented 11/04/18 12:20 Temp 97.9 Pulse 88 Resp 16 B/P (MAP) 139/68 (91) Pulse Ox 93 O2 Delivery Room Air Capillary Refill : Height, Weight, BMI Height: 5'2.00" Weight: 213lbs. 0oz. 96.931585rv; BMI Method:Stated General Appearance: WD/WN, Obese Respiratory: No Respiratory Distress Cardiovascular: Regular Rate, Rhythm, Other ((+) left sided ACW tenderness c/ palpation that reporduces the patient's pain.) Gastrointestinal: Non Tender Rectal: Deferred Neurologic/Psychiatric: Alert, Oriented x3, No Motor/Sensory Deficits, Depressed Affect Skin: Warm/Dry; No Rash Progress/Results/Core Measures Results/Orders Lab Results Laboratory Tests Test 11/04/18 12:32 11/04/18 12:36 Range/Units White Blood Count 9.5 4.3-11.0 10^3/uL Red Blood Count 4.89 4.35-5.85 10^6/uL Hemoglobin 10.1 L 11.5-16.0 G/DL Hematocrit 36 35-52 % Mean Corpuscular Volume 73 L 80-99 FL Mean Corpuscular Hemoglobin 21 L 25-34 PG Mean Corpuscular Hemoglobin Concent 28 L 32-36 G/DL Red Cell Distribution Width 18.0 H 10.0-14.5 % Platelet Count 333 130-400 10^3/uL Mean Platelet Volume 10.9 H 7.4-10.4 FL Neutrophils (%) (Auto) 61 42-75 % Lymphocytes (%) (Auto) 30 12-44 % Monocytes (%) (Auto) 6 0-12 % Eosinophils (%) (Auto) 2 0-10 % Basophils (%) (Auto) 1 0-10 % Neutrophils # (Auto) 5.8 1.8-7.8 X 10^3 Lymphocytes # (Auto) 2.8 1.0-4.0 X 10^3 Monocytes # (Auto) 0.6 0.0-1.0 X 10^3 Eosinophils # (Auto) 0.2 0.0-0.3 10^3/uL Basophils # (Auto) 0.1 0.0-0.1 10^3/uL Sodium Level 140 135-145 MMOL/L Potassium Level 4.3 3.6-5.0 MMOL/L Chloride Level 99 98-107 MMOL/L Carbon Dioxide Level 25 21-32 MMOL/L Anion Gap 16 H 5-14 MMOL/L Blood Urea Nitrogen 11 7-18 MG/DL Creatinine 0.57 L 0.60-1.30 MG/DL Estimat Glomerular Filtration Rate > 60 BUN/Creatinine Ratio 19 Glucose Level 148 H 70-105 MG/DL Calcium Level 9.7 8.5-10.1 MG/DL Corrected Calcium 9.5 8.5-10.1 MG/DL Magnesium Level 2.0 1.8-2.4 MG/DL Total Bilirubin 0.2 0.1-1.0 MG/DL Aspartate Amino Transf (AST/SGOT) 21 5-34 U/L Alanine Aminotransferase (ALT/SGPT) 31 0-55 U/L Alkaline Phosphatase 157 H 40-136 U/L Troponin I < 0.30 <0.30 NG/ML Pro-B-Type Natriuretic Peptide 8.5 <75.0 PG/ML Total Protein 7.8 6.4-8.2 GM/DL Albumin 4.2 3.2-4.5 GM/DL Lipase 39 8-78 U/L Glucometer 151 H 70-110 MG/DL My Orders Orders - TAHIRA WATERS DO Ekg Tracing (11/04/18 12:40) Cbc With Automated Diff (11/04/18 12:40) Comprehensive Metabolic Panel (11/04/18 12:40) Lipase (11/04/18 12:40) Magnesium (11/04/18 12:40) Troponin I (11/04/18 12:40) Probnp Fs (11/04/18 12:40) Chest 1 View Ap/Pa Only (11/04/18 12:40) Ketorolac Injection (Toradol Injection) (11/04/18 13:30) Ct Head Wo (11/04/18 13:35) Ketorolac Injection (Toradol Injection) (11/04/18 13:18) Diphenhydramine Injection (Benadryl Inje (11/04/18 14:15) Dexamethasone Injection (Decadron Inject (11/04/18 14:15) Medications Given in ED Vital Signs/I&O 11/04/18 11/04/18 12:20 15:20 Temp 97.9 Pulse 88 84 Resp 16 16 B/P (MAP) 139/68 (91) 106/63 (77) Pulse Ox 93 98 O2 Delivery Room Air Room Air Progress Progress Note : Progress Note Pain improved p/ Toradol, although did have some itching p/ it that resolved c/ Benadryl and Decadron Initial ECG Impression Date: Nov 04, 2018 Initial ECG Impression Time: 12:31 Initial ECG Rate: 89 Initial ECG Rhythm: Normal Sinus Initial ECG Impression: Nonspecific Changes (LVH) Initial ECG Comparisson: No Previous ECG Available Diagnostic Imaging Diagonstic Imaging: Xray, CT Plain Films/CT/US/NM/MRI: chest (nothing acute), head (nothing acute) Departure Impression Primary Impression: Chest wall pain Additional Impression: Suspected left sided Sciatica Disposition: 01 HOME, SELF-CARE Condition: Stable Departure-Patient Inst. Decision time for Depature: 15:08 Referrals: NICKY NOVOA MD (PCP/Family) Primary Care Physician Patient Instructions: Costochondritis (DC), Sciatica Scripts Meloxicam (Mobic) 7.5 Mg Tablet 7.5 MG PO Q12H PRN for chest/leg pain, #30 TAB 0 Refills Prov: TAHIRA WATERS DO 11/04/18 TAHIRA WATERS DO Nov 04, 2018 12:38
[2018-11-04 12:55] LABS: HEMATOCRIT 36 % (35-52); HEMOGLOBIN 10.1 G/DL (11.5-16.0); MEAN CORPUSCULAR HEMOGLOBIN 21 PG (25-34); MEAN CORPUSCULAR VOLUME 73 FL (80-99); WHITE BLOOD COUNT 9.5 10^3/uL (4.3-11.0)
[2018-11-04 12:56] LABS: BASOPHILS # (AUTO) 0.1 10^3/uL (0.0-0.1); BASOPHILS % (AUTO) 1 % (0-10); EOSINOPHILS # (AUTO) 0.2 10^3/uL (0.0-0.3); EOSINOPHILS % (AUTO) 2 % (0-10); LYMPHOCYTES # (AUTO) 2.8 X 10^3 (1.0-4.0); LYMPHOCYTES % (AUTO) 30 % (12-44); MEAN CORPUSCULAR HGB CONC 28 G/DL (32-36); MEAN PLATELET VOLUME 10.9 FL (7.4-10.4); MONOCYTES # (AUTO) 0.6 X 10^3 (0.0-1.0); MONOCYTES % (AUTO) 6 % (0-12); NEUTROPHILS # (AUTO) 5.8 X 10^3 (1.8-7.8); NEUTROPHILS % (AUTO) 61 % (42-75); PLATELET COUNT 333 10^3/uL (130-400)
--- NOTE | 2018-11-04 13:02 | Diagnostic Imaging Report ---
INDICATION: Chest pain Portable chest 12:55 p.m. FINDINGS: Heart size and pulmonary vascularity are normal. Lungs are clear. There are no effusions or pneumothoraces. IMPRESSION: Negative chest. Dictated by: Dictated on workstation # [id number]
[2018-11-04] MEDS ORDERED: KETOROLAC 30 MG/ML VIAL ONE (13:18)
[2018-11-04 13:26] LABS: ALANINE AMINOTRANSFERASE 31 U/L (0-55); ALKALINE PHOSPHATASE 157 U/L (40-136); BILIRUBIN,TOTAL 0.2 MG/DL (0.1-1.0); BUN/CREATININE RATIO 19; CALCIUM 9.7 MG/DL (8.5-10.1); CARBON DIOXIDE 25 MMOL/L (21-32); CHLORIDE 99 MMOL/L (98-107); CREATININE SERUM 0.57 MG/DL (0.60-1.30); GFR ESTIMATED > 60; GLUCOSE 148 MG/DL (70-105); POTASSIUM 4.3 MMOL/L (3.6-5.0); SODIUM 140 MMOL/L (135-145)
[2018-11-04 13:27] LABS: ALBUMIN 4.2 GM/DL (3.2-4.5); LIPASE 39 U/L (8-78); TOTAL PROTEIN 7.8 GM/DL (6.4-8.2)
[2018-11-04] MEDS ORDERED: KETOROLAC 30 MG/ML VIAL IVP ONE (13:30)
--- NOTE | 2018-11-04 13:31 | NUR ---
IN TALKING TO PT AT THIS TIME.
[2018-11-04] MEDS ORDERED: DEXAMETHASONE 10 MG/ML (DECADRON) 1 ML VIAL IV ONE (14:15)
[2018-11-04] MEDS ORDERED: diphenhydrAMINE 50 MG/ML INJ (BENADRYL) IVP ONE (14:15)
--- NOTE | 2018-11-04 14:45 | NUR ---
PT STATES THE ITCHING IS BETTER.
--- NOTE | 2018-11-04 14:48 | Diagnostic Imaging Report ---
PROCEDURE: CT head without contrast. TECHNIQUE: Multiple contiguous axial images were obtained through the brain without the use of intravenous contrast. Auto Exposure Controls were utilized during the CT exam to meet ALARA standards for radiation dose reduction. INDICATION: Altered mental status. FINDINGS: There are postsurgical changes from left temporal craniotomy. There is large area of encephalomalacia involving the left middle cerebral artery vascular territory consistent with old ischemic injury. There are no masses or hemorrhages. There are no extra-axial fluid collections. There is no CT evidence for acute infarct. IMPRESSION: Postsurgical changes from large left temporal parietal craniotomy with encephalomalacia of left cerebral hemisphere in the middle cerebral artery vascular territory. This is unchanged from 07/04/2018. Dictated by: Dictated on workstation # [id number]
--- NOTE | 2018-11-04 15:04 | NUR ---
IN TALKING TO PT AT THIS TIME.
[2018-11-04] MEDS ORDERED: MELO-170 PO (15:09)
[2018-11-04 15:20] VITALS: BP 106/63
== END 2018-11-04 15:20 | disposition home or self-care (01) ==
LOC: EDUNIT# 12:20 → ER FS 12:22
DX: R07.89 Other chest pain (principal); I10 Essential (primary) hypertension; E78.00 Pure hypercholesterolemia, unspecified; G43.909 Migraine, unspecified, not intractable, without status migrainosus; E11.9 Type 2 diabetes mellitus without complications; Z86.73 Personal history of transient ischemic attack (TIA), and cerebral infarction without residual deficits; Z88.1 Allergy status to other antibiotic agents; Z88.0 Allergy status to penicillin
CPT/HCPCS: 36415; 70450; 71045; 80053; 82962; 83690; 83735; 83880; 84484; 85025; 93005; 96374; 96375

== ENCOUNTER 2019-08-06 20:50 | Emergency (ER) | payer MEDICARE, MEDICAID ==
[~2019-08-06] VITALS: Ht 160 cm; Wt 99.8 kg
[~2019-08-06 20:50] MED LIST changes: +ASPI325T32 PO; +ATOR10TA66 PO; +BACL20TA PO; +CYCL10TA9 PO; +DOCU-143 PO; +DULA1.5P2 SC; +FAMO20TA5 PO; +FAMO40TA6 PO; +GABA-488 PO; +GLIP10TA13 PO; +HYDR50TA76 PO; +LEVE100S PO; +LISI-552 PO; +MELO-170 PO; +MELO7.5T46 PO; +METO50TA15 PO; +METO5TAB2 PO; +MONT10TA26 PO; +OMEP20CA18 PO; +OXYC5TAB96 PO; +POTA10CA43 PO; +SITA100T12 PO; +VITA-252 PO
--- OUTSIDE RECORDS SUMMARY | 2019-08-06 20:56 | XMS REPORT ---
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 .06XA Jan, Active Problem 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 Mar, Active 77994864 3 Problem Type 2 diabetes mellitus without complication E 11.9 Dec, Active 408306309 Problem Cerebral infarction I63.9 Aug, Active 121388908 Problem Morbid obesity with BMI of 40.0-44.9, adult E66 .01 Mar, Active 939882064 Problem Iron deficiency anemia D50.9 August, Acti ve 10833555 Problem HTN (hypertension), benign I10 Aug, Active 31132456 Problem Type 2 diabetes mellitus wit hout complication, without long-term current use of insulin E11.9 Active 627265490 Problem Anxiety state F41.1 Jan, Active 198 690113 Problem Constipation, unspecified constipation type K59.00 Active 18890773 Problem Late effects of CVA (cerebrovascular accident) I69.90 August, Active 489385872 Problem Gastroesophageal reflux disease with esophagitis K21.0 Jan, Active 965221364 Problem Balance problem R26.89 Active 3876 20457 Problem Acute left-sided low back pain with left-sided sciatica M54.42 Active 805533742 Problem Pure hypercholesterolemia E78.00 Acti ve 086312281 ALLERGIES No Information ENCOUNTERS Encounter Location Date Diagnosis [address] [id number] [place] [address] Aug, [address] [id number] [place] [address] Jul, Type 2 diabetes mellitus wit hout complication, without long-term current use of insulin E11.9 and Low back pain M54.[address] [id number], [place] [address] 09 Jul, 2019 Potassium deficiency E87.[address] [id number], [place] [address] 24 Jun, 2019 Gastroesophageal reflux dise ase with esophagitis K21.[address] [id number], [place] [address] 10 Jun, 2019 Type 2 diabetes mellitus wit hout complication, without long-term current use of insulin E11.9 ; HTN (hypertension), benign I10 and Late effects of CVA (cerebrovascular accident) I69.[address] 67598120LCP[place], [place] [address] 05 Jun, 2019 Chronic pain G89.[address] [id number] [place] [address] May, Type 2 diabetes mellitus wit hout complication, without long-term current use of insulin E11.9 and HTN (hypertension), benign I10 [address] [id number] [place] [address] May, Type 2 diabetes mellitus wit hout complication, without long-term current use of insulin E11.[address] 33079044CG[place], [place] [address] May, [address] [id number], [place] [address] May, Type 2 diabetes mellitus wit hout complication, without long-term current use of insulin E11.9 ; Low back pain M54.5 ; Anxiety state F41.1 ; Gastroesophageal reflux disease with esophagitis K21.0 ; Pure hypercholesterolemia E78.00 ; HTN (hypertension), benign I10 ; Muscle spasm M62.838 ; Chronic pain G89.29 ; Late effects of CVA (cerebrovascular accident) I69.90 ; Potassium deficiency E87.6 ; Nasopharyngitis J00 and Constipation, unspecified constipation type K59.00 [facility] E[place] [address] [id number] [place] [address] May, Unspecified injury of head, sequela S09.90XS [facility] E[place] [address] [id number] [place] [address] Apr, [facility] [place] [address] [id number], [place] [address] Mar, [facility] [address] 340 [id number], [place] [address] Mar, [facility] [address] [id number], [place] [address] Mar, Acute left-sided low back pa in with left-sided sciatica M54.42 [facility] ELAINE [address] [id number], [place] [address] Mar, [facility] [address] [facility] [id number] 100KS [place] [address] Mar, [facility] E[place] [address] [id number], [place] [address] Jan, [facility] E[place] [address] [id number], [place] [address] Jan, [facility] E[place] [address] [id number], [place] [address] Jan, [facility] [address] [id number], [place] [address] Jan, Nasopharyngitis J00 ; Abdomi nal pain R10.9 and Possible urinary tract infection R39.89 [facility] ELAINE [address] [id number] [place] [address] Jan, [facility] [address] [id number] [place] [address] Jan, [facility] [address] [id number] [place] [address] Jan, Type 2 diabetes mellitus wit hout complication, without long-term current use of insulin E11.9 [facility] ELA[facility] [address] [id number] [place] [address] Dec, 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 ; Unspecified injury of head, sequela S09.90XS ; Type 2 diabetes mellitus without complication, without long- term current use of insulin E11.9 and Ingrown toenail of right foot L60.0 [facility] ELA[facility] [address] [id number] [place] [address] Oct, [facility] [address] [id number], [place] [address] Oct, Upper respiratory tract infe ction, unspecified type J06.9 and Acute pain of right knee M25.561 [facility] [address] [id number] [place] [address] Oct, [facility] [id number] [place] [address] Oct, [facility] [address] [id number] [place] [address] Oct, [facility] [address] [facility] [id number] 100[address] [place] [address] Oct, [facility] [address] [id number] [place] [address] Oct, [facility] [address] [id number] [place] [address] Oct, Type 2 diabetes mellitus wit hout complication E11.9 and Right leg pain M79.604 [facility] [address] [facility] [id number] 100[address] [place] [address] August, [address] [id number] [place] [address] August, [address] [id number] [place] [address] August, Type 2 diabetes mellitus wit hout complication, without long-term current use of insulin E11.9 ; Monoplegia of upper extremity following cerebral infarction affecting right dominant side I69.331 ; Late effects of CVA (cerebrovascular accident) I69.90 ; Risk for falls Z91.81 and Balance problem R26.[address] [id number] [place] [address] August, Type 2 diabetes mellitus wit hout complication, without long-term current use of insulin E11.9 ; Vaginal itching N89.8 and Monoplegia of upper extremity following cerebral infarction affecting right dominant side I69.[address] [id number] [place] [address] August, [address] [id number] [place] [address] August, [address] [id number] [place] [address] Aug, [address] [id number] [place] [address] Aug, [address] [id number] [place] [address] Aug, Unspecified injury of head, sequela S09.90XS [address] [id number] [place] [address] Aug, Unspecified injury of head, sequela S09.90XS [address] 340 [id number] [place] [address] Jul, [address] [id number] [place] [address] Jul, Unspecified injury of head, sequela S09.90XS and Post- traumatic headache, unspecified, not intractable G44.[address] [id number] [place] [address] Jul, [address] [id number] [place] [address] Jul, Vaginal itching N89.[address] [id number] [place] [address] Jul, Vaginal itching N89.8 [facility] [address] [facility] [id number] [address] [place] [address] May, [facility] [address] [id number] [address] [place] [address] Apr, [facility] [address] [facility] [id number] [address] [place] [address] Apr, [facility] [address] [facility] [id number] [address] [place] [address] Oct, [facility] [address] [facility] [id number] [address] [place] [address] Oct, IMMUNIZATIONS No Known Immunizations SOCIAL HISTORY Never Assessed REASON FOR VISIT PLAN OF CARE VITAL SIGNS MEDICATIONS Medication Instructions Dosage Frequency Start Date End Date Duration S tatus Famotidine 20 MG Orally 2 times a day 1 tablet 12h August, 90 days Active RESULTS No Results PROCEDURES No Known procedures INSTRUCTIONS MEDICATIONS ADMINISTERED No Known Medications MEDICAL (GENERAL) HISTORY Type Description Date Medical History HTN (hypertension), benign Medical History Iron deficiency anemia Medical History Morbid obesity with BMI of 40.0-44.9, ad ult Medical History Anxiety state Medical History Late effects of CVA (cerebrovascular acc ident) Medical History Type 2 diabetes mellitus without complic ation Medical History Gastro-esophageal reflux disease with es ophagitis Medical History Cerebral infarction Medical History Anaphylactic reaction due to food additi ves Medical History 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
--- OUTSIDE RECORDS SUMMARY | 2019-08-06 20:57 | XMS REPORT | Continuity of Care Document ---
Author Organization Unknown Address Unknown Phone Unavailable Allergies Active Description Code Type Severity Reaction Onset Reported/Identified Relationship to Patient Clinical Status Yes cefazolin [id number] Drug Allergy Unknown N/A 07/04/2018 Yes enoxaparin [id number] Drug Allerg y Unknown N/A 07/04/2018 Yes PENICILLIN PENICILLIN Unknown N/A 07/04/2018 Medications There is no data. Problems Date Dx Coded Attending Type Code Diagnosis Diagnosed By 07/05/2018 ANNIE NANCE DO T Ot E11. 65 TYPE 2 DIABETES MELLITUS WITH HYPERGLYCE 07/05/2018 YOSEF NANCE DOED T Ot I10 ESSENTIAL (PRIMARY) HYPERTENSION 07/05/2018 ANNIE NANCE DO T Ot I16. 0 HYPERTENSIVE URGENCY 07/05/2018 GOYO NOVAK ANNIE T Ot R07. 9 CHEST PAIN, UNSPECIFIED 07/05/2018 GOYO NOVAK ANNIE T Ot R51 HEADACHE 07/05/2018 GOYO NOVAK ANNIE T Ot R94. 31 ABNORMAL ELECTROCARDIOGRAM [ECG] [EKG] 07/05/2018 ANNIE NANCE DO T Ot Z86. 69 PERSONAL HISTORY OF DIS OF THE NERVOUS S 07/05/2018 YOSEF NANCE DOED T Ot Z86. 73 PRSNL HX OF TIA (TIA), AND CEREB INFRC W 07/05/2018 ANNIE NANCE DO T Ot Z88. 0 ALLERGY STATUS TO PENICILLIN 07/05/2018 GOYO NOVAK ANNIE T Ot Z88. 8 ALLERGY STATUS TO OTH DRUG/MEDS/BIOL SUB 07/06/2018 YOSEF NANCE DOED T Ot E11. 65 TYPE 2 DIABETES MELLITUS WITH HYPERGLYCE 07/06/2018 GOYO NOVAK ANNIE T Ot I10 ESSENTIAL (PRIMARY) HYPERTENSION 07/06/2018 GOYO NOVAK ANNIE T Ot I16. 0 HYPERTENSIVE URGENCY 07/06/2018 GOYO NOVAK ANNIE T Ot R07. 9 CHEST PAIN, UNSPECIFIED 07/06/2018 YOSEF NANCE DOED T Ot R51 HEADACHE 07/06/2018 YOSEF NANCE DOED T Ot R94. 31 ABNORMAL ELECTROCARDIOGRAM [ECG] [EKG] 07/06/2018 GOYO NOVAKANNIE Ot Z86. 69 PERSONAL HISTORY OF DIS OF THE NERVOUS S 07/06/2018 GOYO NOVAK ANNEI Lott Ot Z86. 73 PRSNL HX OF TIA (TIA), AND CEREB INFRC W 07/06/2018 GOYO NOVAKANNIE Ot Z88. 0 ALLERGY STATUS TO PENICILLIN 07/06/2018 GOYO NOVAKANNIE Ot Z88. 8 ALLERGY STATUS TO OTH DRUG/MEDS/BIOL SUB 07/19/2018 MCKENNA HOFFMANN MD Ot E11.9 TYPE 2 DIABETES MELLITUS WITHOUT COMPLIC 07/19/2018 MCKENNA HOFFMANN MD Ot E78.0 0 PURE HYPERCHOLESTEROLEMIA, UNSPECIFIED 07/19/2018 MCKENNA HOFFMANN MD Ot F41.9 ANXIETY DISORDER, UNSPECIFIED 07/19/2018 MCKENNA HOFFMANN MD Ot I10 ESSENTIAL (PRIMARY) HYPERTENSION 07/19/2018 MCKENNA HOFFMANN MD Ot R07.9 CHEST PAIN, UNSPECIFIED 07/19/2018 MCKENNA HOFFMANN MD Ot R51 HEADACHE 07/19/2018 MCKENNA HOFFMANN MD Ot R74.8 ABNORMAL LEVELS OF OTHER SERUM ENZYMES 07/19/2018 MCKENNA HOFFMANN MD, Ot Z86.6 9 PERSONAL HISTORY OF DIS OF THE NERVOUS S 07/19/2018 MCKENNA HOFFMANN MD Ot Z86.7 3 PRSNL HX OF TIA (TIA), AND CEREB INFRC W 07/19/2018 MCKENNA HOFFMANN MD Ot Z88.0 ALLERGY STATUS TO PENICILLIN 07/19/2018 MCKENNA HOFFMANN MD Ot Z88.1 ALLERGY STATUS TO OTHER ANTIBIOTIC AGENT 07/19/2018 MCKENNA HOFFMANN MD Ot Z88.8 ALLERGY STATUS TO OTH DRUG/MEDS/BIOL SUB 07/22/2018 MCKENNA HOFFMANN MD Ot E11.9 TYPE 2 DIABETES MELLITUS WITHOUT COMPLIC 07/22/2018 MCKENNA HOFFMANN MD Ot E78.0 0 PURE HYPERCHOLESTEROLEMIA, UNSPECIFIED 07/22/2018 MCKENNA HOFFMANN MD Ot F41.9 ANXIETY DISORDER, UNSPECIFIED 07/22/2018 MCKENNA HOFFMANN MD Ot I10 ESSENTIAL (PRIMARY) HYPERTENSION 07/22/2018 MCKENNA HOFFMANN MD Ot R07.9 CHEST PAIN, UNSPECIFIED 07/22/2018 MCKENNA HOFFMANN MD Ot R51 HEADACHE 07/22/2018 MCKENNA HOFFMANN MD Ot R74.8 ABNORMAL LEVELS OF OTHER SERUM ENZYMES 07/22/2018 MCKENNA HOFFMANN MD, Ot Z86.6 9 PERSONAL HISTORY OF DIS OF THE NERVOUS S 07/22/2018 MCKENNA HOFFMANN MD Ot Z86.7 3 PRSNL HX OF TIA (TIA), AND CEREB INFRC W 07/22/2018 MCKENNA HOFFMANN MD, Ot Z88.0 ALLERGY STATUS TO PENICILLIN 07/22/2018 MCKENNA HOFFMANN MD Ot Z88.1 ALLERGY STATUS TO OTHER ANTIBIOTIC AGENT 07/22/2018 MCKENNA HOFFMANN MD, Ot Z88.8 ALLERGY STATUS TO OTH DRUG/MEDS/BIOL SUB 07/29/2018 MCKENNA HOFFMANN MD Ot E11.9 TYPE 2 DIABETES MELLITUS WITHOUT COMPLIC 07/29/2018 MCKENNA HOFFMANN MD Ot E78.0 0 PURE HYPERCHOLESTEROLEMIA, UNSPECIFIED 07/29/2018 MCKENNA HOFFMANN MD Ot I10 ESSENTIAL (PRIMARY) HYPERTENSION 07/29/2018 MCKENNA HOFFMANN MD Ot L50.9 URTICARIA, UNSPECIFIED 07/29/2018 MCKENNA HOFFMANN MD Ot R21 RASH AND OTHER NONSPECIFIC SKIN ERUPTION 07/29/2018 MCKENNA HOFFMANN MD Ot R51 HEADACHE 07/29/2018 MCKENNA HOFFMANN MD Ot Z79.0 1 PRISON (CURRENT) USE OF ANTICOAGULANT 07/29/2018 MCKENNA HOFFMANN MD, Ot Z86.6 9 PERSONAL HISTORY OF DIS OF THE NERVOUS S 07/29/2018 MCKENNA HOFFMANN MD Ot Z88.0 ALLERGY STATUS TO PENICILLIN 07/29/2018 MCKENNA HOFFMANN MD Ot Z88.1 ALLERGY STATUS TO OTHER ANTIBIOTIC AGENT 07/30/2018 MCKENNA HOFFMANN MD Ot E11.9 TYPE 2 DIABETES MELLITUS WITHOUT COMPLIC 07/30/2018 MCKENNA HOFFMANN MD Ot E78.0 0 PURE HYPERCHOLESTEROLEMIA, UNSPECIFIED 07/30/2018 MCKENNA HOFFMANN MD Ot I10 ESSENTIAL (PRIMARY) HYPERTENSION 07/30/2018 MCKENNA HOFFMANN MD Ot L50.9 URTICARIA, UNSPECIFIED 07/30/2018 MCKENNA HOFFMANN MD Ot R21 RASH AND OTHER NONSPECIFIC SKIN ERUPTION 07/30/2018 MCKENNA HOFFMANN MD Ot R51 HEADACHE 07/30/2018 MCKENNA HOFFMANN MD, Ot Z79.0 1 [employer] (CURRENT) USE OF ANTICOAGULANT 07/30/2018 MCKENNA HOFFMANN MD, Ot Z86.6 9 PERSONAL HISTORY OF DIS OF THE NERVOUS S 07/30/2018 MCKENNA HOFFMANN MD, Ot Z88.0 ALLERGY STATUS TO PENICILLIN 07/30/2018 MCKENNA HOFFMANN MD, Ot Z88.1 ALLERGY STATUS TO OTHER ANTIBIOTIC AGENT 11/04/2018 EVELIN DO, TAHIRA Allan Ot E11.9 TYPE 2 DIABETES MELLITUS WITHOUT COMPLIC 11/04/2018 EVELIN DO, TAHIRA Allan Ot E78.00 PURE HYPERCHOLESTEROLEMIA, UNSPECIFIED 11/04/2018 EVELIN DOTAHIRA Ot G43.909 MIGRAINE, UNSP, NOT INTRACTABLE, WITHOUT 11/04/2018 EVELIN DO, TAHIRA Sanjana Ot I1 0 ESSENTIAL (PRIMARY) HYPERTENSION 11/04/2018 EVELIN DOTAHIRA Ot R07.89 OTHER CHEST PAIN 11/04/2018 EVELIN DOTAHIRA Ot R07.9 CHEST PAIN, UNSPECIFIED 11/04/2018 EVELIN DO, TAHIRA Sanjana Ot Z86.73 PRSNL HX OF TIA (TIA), AND CEREB INFRC W 11/04/2018 EVELIN DOTAHIRA Ot Z88.0 ALLERGY STATUS TO PENICILLIN 11/04/2018 EVELIN DOTAHIRA Ot Z88.1 ALLERGY STATUS TO OTHER ANTIBIOTIC AGENT 11/10/2018 EVELIN DOTAHIRA Ot E11.9 TYPE 2 DIABETES MELLITUS WITHOUT COMPLIC 11/10/2018 EVELIN DO, TAHIRA Allan Ot E78.00 PURE HYPERCHOLESTEROLEMIA, UNSPECIFIED 11/10/2018 EVELIN DO, TAHIRA Allan Ot G43.909 MIGRAINE, UNSP, NOT INTRACTABLE, WITHOUT 11/10/2018 EVELIN DO, TAHIRA Allan Ot I1 0 ESSENTIAL (PRIMARY) HYPERTENSION 11/10/2018 EVELIN DO, TAHIRA Allan Ot R07.89 OTHER CHEST PAIN 11/10/2018 EVELIN DO, TAHIRA Allan Ot R07.9 CHEST PAIN, UNSPECIFIED 11/10/2018 EVELIN DO, TAHIRA Sanjana Ot Z86.73 PRSNL HX OF TIA (TIA), AND CEREB INFRC W 11/10/2018 EVELIN DOTAHIRA Ot Z88.0 ALLERGY STATUS TO PENICILLIN 11/10/2018 EVELINTAHIRA DICKSON DO Ot Z88.1 ALLERGY STATUS TO OTHER ANTIBIOTIC AGENT 03/02/2019 GUILHERME MCKEON MD Ot D72.8 29 ELEVATED WHITE BLOOD CELL COUNT, UNSPECI 03/02/2019 GUILHERME MCKEON MD Ot E11.9 TYPE 2 DIABETES MELLITUS WITHOUT COMPLIC 03/02/2019 GUILHERME MCKEON MD Ot E78.0 0 PURE HYPERCHOLESTEROLEMIA, UNSPECIFIED 03/02/2019 GUILHERME MCKEON MD Ot G43.9 09 MIGRAINE, UNSP, NOT INTRACTABLE, WITHOUT 03/02/2019 GUILHERME MCKEON MD Ot G89.2 9 OTHER CHRONIC PAIN 03/02/2019 GUILHERME MCKEON MD Ot I10 ESSENTIAL (PRIMARY) HYPERTENSION 03/02/2019 GUILHERME MCKEON MD Ot M54.5 LOW BACK PAIN 03/02/2019 GUILHERME MCKEON MD Ot Z79.8 99 OTHER PRISON (CURRENT) DRUG THERAPY 03/02/2019 GUILHERME MCKEON MD Ot Z86.7 3 PRSNL HX OF TIA (TIA), AND CEREB INFRC W 03/02/2019 GUILHERME MCKEON MD Ot Z88.0 ALLERGY STATUS TO PENICILLIN 03/02/2019 GUILHERME MCKEON MD Ot Z88.1 ALLERGY STATUS TO OTHER ANTIBIOTIC AGENT 03/02/2019 GUILHERME MCKEON MD Ot D72.8 29 ELEVATED WHITE BLOOD CELL COUNT, UNSPECI 03/02/2019 GUILHERME MCKEON MD Ot E11.9 TYPE 2 DIABETES MELLITUS WITHOUT COMPLIC 03/02/2019 GUILHERME MCKEON MD Ot E78.0 0 PURE HYPERCHOLESTEROLEMIA, UNSPECIFIED 03/02/2019 GUILHERME MCKEON MD Ot G43.9 09 MIGRAINE, UNSP, NOT INTRACTABLE, WITHOUT 03/02/2019 GUILHERME MCKEON MD Ot G89.2 9 OTHER CHRONIC PAIN 03/02/2019 GUILHERME MCKEON MD Ot I10 ESSENTIAL (PRIMARY) HYPERTENSION 03/02/2019 GUILHERME MCKEON MD Ot M54.5 LOW BACK PAIN 03/02/2019 GUILHERME MCKEON MD Ot Z79.8 99 OTHER PRISON (CURRENT) DRUG THERAPY 03/02/2019 GUILHERME MCKEON MD Ot Z86.7 3 PRSNL HX OF TIA (TIA), AND CEREB INFRC W 03/02/2019 GUILHERME MCKEON MD, Ot Z88.0 ALLERGY STATUS TO PENICILLIN 03/02/2019 GUILHERME MCKEON MD, Ot Z88.1 ALLERGY STATUS TO OTHER ANTIBIOTIC AGENT Procedures There is no data. Results Test Result Range Automated blood complete blood count (he mogram) panel - 07/04/18 21:09 Blood leukocytes automated count (number/volume) 11.6 10*3/uL 4.3-11.0 Blood erythrocytes automated count (number/volume) 4.76 10*6/uL 4.35-5.85 Venous blood hemoglobin measurement (mass/volume) 10.0 g/dL 11.5-16.0 Blood hematocrit (volume fraction) 34 % 35-52 Automated erythrocyte mean corpuscular volume 72 [ foz_us] 80-99 Automated erythrocyte mean corpuscular h emoglobin (mass per erythrocyte) 21 pg 25-34 Automated erythrocyte mean corpuscular h emoglobin concentration measurement (mass/volume) 29 g/dL 32-36 Automated erythrocyte distribution width ratio 17. 6 % 10.0- 14.5 Automated blood platelet count (count/volume) 247 10*3/uL 130-400 Automated blood platelet mean volume measurement 11.9 [foz_us] 7.4-10.4 PT panel in platelet poor plasma by coag ulation assay - 07/04/18 21:09 Prothrombin time (PT) in platelet poor plasma by coagu lation assay 12.8 s 12.2-14.7 INR in platelet poor plasma or blood by coagulation as say 1.0 0.8-1.4 Activated partial thromboplastin time (a PTT) in platelet poor plasma bycoagulation assay - 07/04/18 21:09 Activated partial thromboplastin time (a PTT) in platelet poor plasma bycoagulation assay 28 s 24-35 Comprehensive metabolic panel - 07/04/18 21:09 Serum or plasma sodium measurement (moles/volume) 131 mmol/L 135-145 Serum or plasma potassium measurement (moles/volume) 4.3 mmol/L 3.6-5.0 Serum or plasma chloride measurement (moles/volume) 94 mmol/L 98-107 Carbon dioxide 20 mmol/L 21-32 Serum or plasma anion gap determination (moles/volume) 17 mmol/L 5-14 Serum or plasma urea nitrogen measurement (mass/volume ) 9 mg/dL 7-18 Serum or plasma creatinine measurement (mass/volume) 0.43 mg/dL 0.60-1.30 Serum or plasma urea nitrogen/creatinine mass ratio 21 NRG Serum or plasma creatinine measurement w ith calculation of estimated glomerular filtration rate > NRG Serum or plasma glucose measurement (mass/volume) 421 mg/dL 70-105 Serum or plasma calcium measurement (mass/volume) 8.8 mg/dL 8.5-10.1 Serum or plasma total bilirubin measurement (mass/volu me) 0.2 mg/dL 0.1-1.0 Serum or plasma alkaline phosphatase james surement (enzymatic activity/volume) 146 U/L 40-136 Serum or plasma aspartate aminotransfera se measurement (enzymatic activity/volume) 27 U/L 5-34 Serum or plasma alanine aminotransferase measurement (enzymatic activity/volume) 28 U/L 0-55 Serum or plasma protein measurement (mass/volume) 6.9 g/dL 6.4-8.2 Serum or plasma albumin measurement (mass/volume) 3.4 g/dL 3.2-4.5 CALCIUM CORRECTED 9.3 mg/dL 8.5-10.1 Magnesium - 07/04/18 21:09 Magnesium 1.6 mg/dL 1.8-2.4 TROPONIN T - 07/04/18 21:09 TROPONIN T 6 % <=10 Capillary blood glucose measurement by g lucometer (mass/volume) - 07/04/18 23:50 Capillary blood glucose measurement by glucometer (mas s/volume) 373 mg/dL 70-110 Complete blood count (CBC) with automate d white blood cell (WBC) differential - 07/19/18 16:00 Blood leukocytes automated count (number/volume) 9.8 10*3/uL 4.3-11.0 Blood erythrocytes automated count (number/volume) 5.18 10*6/uL 4.35-5.85 Venous blood hemoglobin measurement (mass/volume) 10.6 g/dL 11.5-16.0 Blood hematocrit (volume fraction) 37 % 35-52 Automated erythrocyte mean corpuscular volume 71 [ foz_us] 80-99 Automated erythrocyte mean corpuscular h emoglobin (mass per erythrocyte) 20 pg 25-34 Automated erythrocyte mean corpuscular h emoglobin concentration measurement (mass/volume) 29 g/dL 32-36 Automated erythrocyte distribution width ratio 19. 1 % 10.0- 14.5 Automated blood platelet count (count/volume) 280 10*3/uL 130-400 Automated blood platelet mean volume measurement 11.4 [foz_us] 7.4-10.4 Automated blood neutrophils/100 leukocytes 61 % 42-75 Automated blood lymphocytes/100 leukocytes 31 % 12-44 Blood monocytes/100 leukocytes 5 % 0-12 Automated blood eosinophils/100 leukocytes 3 % 0-10 Automated blood basophils/100 leukocytes 0 % 0-10 Blood neutrophils automated count (number/volume) 6.0 10*3 1.8-7.8 Blood lymphocytes automated count (number/volume) 3.0 10*3 1.0-4.0 Blood monocytes automated count (number/volume) 0. 5 10*3 0.0-1.0 Automated eosinophil count 0.3 10*3/uL 0 .0-0.3 Automated blood basophil count (count/volume) 0.0 10*3/uL 0.0-0.1 PT panel in platelet poor plasma by coag ulation assay - 07/19/18 16:00 Prothrombin time (PT) in platelet poor plasma by coagu lation assay 13.1 s 12.2-14.7 INR in platelet poor plasma or blood by coagulation as say 1.0 0.8-1.4 Activated partial thromboplastin time (a PTT) in platelet poor plasma bycoagulation assay - 07/19/18 16:00 Activated partial thromboplastin time (a PTT) in platelet poor plasma bycoagulation assay 29 s 24-35 Comprehensive metabolic panel - 07/19/18 16:00 Serum or plasma sodium measurement (moles/volume) 136 mmol/L 135-145 Serum or plasma potassium measurement (moles/volume) 4.4 mmol/L 3.6-5.0 Serum or plasma chloride measurement (moles/volume) 97 mmol/L 98-107 Carbon dioxide 20 mmol/L 21-32 Serum or plasma anion gap determination (moles/volume) 19 mmol/L 5-14 Serum or plasma urea nitrogen measurement (mass/volume ) 12 mg/dL 7-18 Serum or plasma creatinine measurement (mass/volume) 1.02 mg/dL 0.60-1.30 Serum or plasma urea nitrogen/creatinine mass ratio 12 NRG Serum or plasma creatinine measurement w ith calculation of estimated glomerular filtration rate 59 NRG Serum or plasma glucose measurement (mass/volume) 268 mg/dL 70-105 Serum or plasma calcium measurement (mass/volume) 9.9 mg/dL 8.5-10.1 Serum or plasma total bilirubin measurement (mass/volu me) 0.3 mg/dL 0.1-1.0 Serum or plasma alkaline phosphatase james surement (enzymatic activity/volume) 145 U/L 40-136 Serum or plasma aspartate aminotransfera se measurement (enzymatic activity/volume) 36 U/L 5-34 Serum or plasma alanine aminotransferase measurement (enzymatic activity/volume) 51 U/L 0-55 Serum or plasma protein measurement (mass/volume) 8.0 g/dL 6.4-8.2 Serum or plasma albumin measurement (mass/volume) 4.3 g/dL 3.2-4.5 CALCIUM CORRECTED 9.7 mg/dL 8.5-10.1 Magnesium - 07/19/18 16:00 Magnesium 1.9 mg/dL 1.8-2.4 Myoglobin, serum - 07/19/18 16:00 Myoglobin, serum 16.5 ng/mL 10.0-92.0 TROPONIN T - 07/19/18 16:00 TROPONIN T < 6 <=10 PROBNP FS - 07/19/18 16:00 PROBNP FS 10.9 pg/mL <75.0 Lipase - 07/19/18 16:00 Lipase 18 U/L 8-78 TROPONIN T - 07/19/18 18:15 TROPONIN T < 6 <=10 D-DIMER - 10/06/18 12:14 D-DIMER, QUANTITATIVE <0.19 mcg/mL FEU < 0.50 A1C - 10/06/18 12:14 HEMOGLOBIN A1c 7.9 % of total Hgb <5.7 Complete blood count (CBC) with automate d white blood cell (WBC) differential - 11/04/18 12:32 Blood leukocytes automated count (number/volume) 9.5 10*3/uL 4.3-11.0 Blood erythrocytes automated count (number/volume) 4.89 10*6/uL 4.35-5.85 Venous blood hemoglobin measurement (mass/volume) 10.1 g/dL 11.5-16.0 Blood hematocrit (volume fraction) 36 % 35-52 Automated erythrocyte mean corpuscular volume 73 [ foz_us] 80-99 Automated erythrocyte mean corpuscular h emoglobin (mass per erythrocyte) 21 pg 25-34 Automated erythrocyte mean corpuscular h emoglobin concentration measurement (mass/volume) 28 g/dL 32-36 Automated erythrocyte distribution width ratio 18. 0 % 10.0- 14.5 Automated blood platelet count (count/volume) 333 10*3/uL 130-400 Automated blood platelet mean volume measurement 10.9 [foz_us] 7.4-10.4 Automated blood neutrophils/100 leukocytes 61 % 42-75 Automated blood lymphocytes/100 leukocytes 30 % 12-44 Blood monocytes/100 leukocytes 6 % 0-12 Automated blood eosinophils/100 leukocytes 2 % 0-10 Automated blood basophils/100 leukocytes 1 % 0-10 Blood neutrophils automated count (number/volume) 5.8 10*3 1.8-7.8 Blood lymphocytes automated count (number/volume) 2.8 10*3 1.0-4.0 Blood monocytes automated count (number/volume) 0. 6 10*3 0.0-1.0 Automated eosinophil count 0.2 10*3/uL 0 .0-0.3 Automated blood basophil count (count/volume) 0.1 10*3/uL 0.0-0.1 Comprehensive metabolic panel - 11/04/18 12:32 Serum or plasma sodium measurement (moles/volume) 140 mmol/L 135-145 Serum or plasma potassium measurement (moles/volume) 4.3 mmol/L 3.6-5.0 Serum or plasma chloride measurement (moles/volume) 99 mmol/L 98-107 Carbon dioxide 25 mmol/L 21-32 Serum or plasma anion gap determination (moles/volume) 16 mmol/L 5-14 Serum or plasma urea nitrogen measurement (mass/volume ) 11 mg/dL 7-18 Serum or plasma creatinine measurement (mass/volume) 0.57 mg/dL 0.60-1.30 Serum or plasma urea nitrogen/creatinine mass ratio 19 NRG Serum or plasma creatinine measurement w ith calculation of estimated glomerular filtration rate > NRG Serum or plasma glucose measurement (mass/volume) 148 mg/dL 70-105 Serum or plasma calcium measurement (mass/volume) 9.7 mg/dL 8.5-10.1 Serum or plasma total bilirubin measurement (mass/volu me) 0.2 mg/dL 0.1-1.0 Serum or plasma alkaline phosphatase james surement (enzymatic activity/volume) 157 U/L 40-136 Serum or plasma aspartate aminotransfera se measurement (enzymatic activity/volume) 21 U/L 5-34 Serum or plasma alanine aminotransferase measurement (enzymatic activity/volume) 31 U/L 0-55 Serum or plasma protein measurement (mass/volume) 7.8 g/dL 6.4-8.2 Serum or plasma albumin measurement (mass/volume) 4.2 g/dL 3.2-4.5 CALCIUM CORRECTED 9.5 mg/dL 8.5-10.1 Magnesium - 11/04/18 12:32 Magnesium 2.0 mg/dL 1.8-2.4 Serum or plasma troponin i.cardiac measu rement (mass/volume) - 11/04/18 12:32 Serum or plasma troponin i.cardiac measurement (mass/v olume) < ng/mL <0.30 PROBNP FS - 11/04/18 12:32 PROBNP FS 8.5 pg/mL <75.0 Lipase - 11/04/18 12:32 Lipase 39 U/L 8-78 Capillary blood glucose measurement by g lucometer (mass/volume) - 11/04/18 12:36 Capillary blood glucose measurement by glucometer (mas s/volume) 151 mg/dL 70-110 A1C - 01/03/19 08:21 HEMOGLOBIN A1c 7.5 % of total Hgb <5.7 CULTURE, URINE - 01/18/19 00:00 CULTURE, URINE, ROUTINE SEE NOTE NRG Complete urinalysis with reflex to cultu re - 02/28/19 19:13 Urine color determination YELLOW NRG Urine clarity determination CLEAR NR G Urine pH measurement by test strip 5.5 5-9 Specific gravity of urine by test strip < 1.016-1.022 Urine protein assay by test strip, semi-quantitative NEGATIVE NEGATIVE Urine glucose detection by automated test strip NE GATIVE NEGATIVE Erythrocytes detection in urine sediment by light micr oscopy NEGATIVE NEGATIVE Urine ketones detection by automated test strip NE GATIVE NEGATIVE Urine nitrite detection by test strip NEGATIVE NEGATIVE Urine total bilirubin detection by test strip NEGA TIVE NEGATIVE Urine urobilinogen measurement by automated test strip (mass/volume) 0.2 mg/dL NORMAL Urine leukocyte esterase detection by dipstick 1+ NEGATIVE Automated urine sediment erythrocyte cou nt by microscopy (number/high power field) NONE NRG Automated urine sediment leukocyte count by microscopy (number/high power field) [HPF] NRG Bacteria detection in urine sediment by light microsco py FEW NRG Squamous epithelial cells detection in u rine sediment by light microscopy 0-2 NRG Crystals detection in urine sediment by light microsco py NONE NRG Casts detection in urine sediment by light microscopy NONE NRG Mucus detection in urine sediment by light microscopy NEGATIVE NRG Complete urinalysis with reflex to culture NO NRG Complete blood count (CBC) with automate d white blood cell (WBC) differential - 02/28/19 21:20 Blood leukocytes automated count (number/volume) 12.3 10*3/uL 4.3-11.0 Blood erythrocytes automated count (number/volume) 5.29 10*6/uL 4.35-5.85 Venous blood hemoglobin measurement (mass/volume) 11.8 g/dL 11.5-16.0 Blood hematocrit (volume fraction) 40 % 35-52 Automated erythrocyte mean corpuscular volume 75 [ foz_us] 80-99 Automated erythrocyte mean corpuscular h emoglobin (mass per erythrocyte) 22 pg 25-34 Automated erythrocyte mean corpuscular h emoglobin concentration measurement (mass/volume) 30 g/dL 32-36 Automated erythrocyte distribution width ratio 16. 4 % 10.0- 14.5 Automated blood platelet count (count/volume) 302 10*3/uL 130-400 Automated blood platelet mean volume measurement 10.6 [foz_us] 7.4-10.4 Automated blood neutrophils/100 leukocytes 52 % 42-75 Automated blood lymphocytes/100 leukocytes 39 % 12-44 Blood monocytes/100 leukocytes 6 % 0-12 Automated blood eosinophils/100 leukocytes 1 % 0-10 Automated blood basophils/100 leukocytes 0 % 0-10 Blood neutrophils automated count (number/volume) 6.4 10*3 1.8-7.8 Blood lymphocytes automated count (number/volume) 4.8 10*3 1.0-4.0 Blood monocytes automated count (number/volume) 0. 7 10*3 0.0-1.0 Automated eosinophil count 0.2 10*3/uL 0 .0-0.3 Automated blood basophil count (count/volume) 0.0 10*3/uL 0.0-0.1 Comprehensive metabolic panel - 02/28/19 21:20 Serum or plasma sodium measurement (moles/volume) 137 mmol/L 135-145 Serum or plasma potassium measurement (moles/volume) 4.1 mmol/L 3.6-5.0 Serum or plasma chloride measurement (moles/volume) 100 mmol/L 98-107 Carbon dioxide 24 mmol/L 21-32 Serum or plasma anion gap determination (moles/volume) 13 mmol/L 5-14 Serum or plasma urea nitrogen measurement (mass/volume ) 10 mg/dL 7-18 Serum or plasma creatinine measurement (mass/volume) 0.57 mg/dL 0.60-1.30 Serum or plasma urea nitrogen/creatinine mass ratio 18 NRG Serum or plasma creatinine measurement w ith calculation of estimated glomerular filtration rate > NRG Serum or plasma glucose measurement (mass/volume) 162 mg/dL 70-105 Serum or plasma calcium measurement (mass/volume) 9.8 mg/dL 8.5-10.1 Serum or plasma total bilirubin measurement (mass/volu me) 0.2 mg/dL 0.1-1.0 Serum or plasma alkaline phosphatase james surement (enzymatic activity/volume) 140 U/L 40-136 Serum or plasma aspartate aminotransfera se measurement (enzymatic activity/volume) 14 U/L 5-34 Serum or plasma alanine aminotransferase measurement (enzymatic activity/volume) 18 U/L 0-55 Serum or plasma protein measurement (mass/volume) 8.2 g/dL 6.4-8.2 Serum or plasma albumin measurement (mass/volume) 4.4 g/dL 3.2-4.5 CALCIUM CORRECTED 9.5 mg/dL 8.5-10.1 Lipase - 02/28/19 21:20 Lipase 17 U/L 8-78 Erythrocyte sedimentation rate by kamilla gren method - 02/28/19 21:20 Erythrocyte sedimentation rate by westergren method 19 mm 0- 20 Serum or plasma C reactive protein measu rement (mass/volume) - 02/28/19 21:20 Serum or plasma C reactive protein measurement (mass/v olume) 2.00 mg/dL 0.00-0.50 Complete blood count (CBC) with automate d white blood cell (WBC) differential - 03/02/19 05:44 Blood leukocytes automated count (number/volume) 7.6 10*3/uL 4.3-11.0 Blood erythrocytes automated count (number/volume) 5.00 10*6/uL 4.35-5.85 Venous blood hemoglobin measurement (mass/volume) 11.0 g/dL 11.5-16.0 Blood hematocrit (volume fraction) 37 % 35-52 Automated erythrocyte mean corpuscular volume 74 [ foz_us] 80-99 Automated erythrocyte mean corpuscular h emoglobin (mass per erythrocyte) 22 pg 25-34 Automated erythrocyte mean corpuscular h emoglobin concentration measurement (mass/volume) 30 g/dL 32-36 Automated erythrocyte distribution width ratio 16. 9 % 10.0- 14.5 Automated blood platelet count (count/volume) 241 10*3/uL 130-400 Automated blood platelet mean volume measurement 11.1 [foz_us] 7.4-10.4 Automated blood neutrophils/100 leukocytes 50 % 42-75 Automated blood lymphocytes/100 leukocytes 39 % 12-44 Blood monocytes/100 leukocytes 10 % 0-12 Automated blood eosinophils/100 leukocytes 2 % 0-10 Automated blood basophils/100 leukocytes 0 % 0-10 Blood neutrophils automated count (number/volume) 3.8 10*3 1.8-7.8 Blood lymphocytes automated count (number/volume) 2.9 10*3 1.0-4.0 Blood monocytes automated count (number/volume) 0. 7 10*3 0.0-1.0 Automated eosinophil count 0.1 10*3/uL 0 .0-0.3 Automated blood basophil count (count/volume) 0.0 10*3/uL 0.0-0.1 Whole blood basic metabolic panel - 02/02 05/21 05:44 Serum or plasma sodium measurement (moles/volume) 139 mmol/L 135-145 Serum or plasma potassium measurement (moles/volume) 3.9 mmol/L 3.6-5.0 Serum or plasma chloride measurement (moles/volume) 104 mmol/L 98-107 Carbon dioxide 21 mmol/L 21-32 Serum or plasma anion gap determination (moles/volume) 14 mmol/L 5-14 Serum or plasma urea nitrogen measurement (mass/volume ) 9 mg/dL 7-18 Serum or plasma creatinine measurement (mass/volume) 0.66 mg/dL 0.60-1.30 Serum or plasma urea nitrogen/creatinine mass ratio 14 NRG Serum or plasma creatinine measurement w ith calculation of estimated glomerular filtration rate > NRG Serum or plasma glucose measurement (mass/volume) 132 mg/dL 70-105 Serum or plasma calcium measurement (mass/volume) 9.5 mg/dL 8.5-10.1 CMP - 05/22/19 12:27 GLUCOSE 160 mg/dL 65-99 UREA NITROGEN (BUN) 12 mg/dL 7-25 CREATININE 0.57 mg/dL 0.50-1.10 eGFR NON-AFR. MONTSERRATIAN 114 mL/min/1.73m2 > OR = 60 eGFR 132 mL/min/1.73m2 > OR = 60 BUN/CREATININE RATIO NOT APPLICABLE (calc) 6-22 SODIUM 136 mmol/L 135-146 POTASSIUM 4.2 mmol/L 3.5-5.3 CHLORIDE 100 mmol/L 98-110 CARBON DIOXIDE 27 mmol/L 20-32 CALCIUM 9.5 mg/dL 8.6-10.2 PROTEIN, TOTAL 6.9 g/dL 6.1-8.1 ALBUMIN 4.0 g/dL 3.6-5.1 GLOBULIN 2.9 g/dL (calc) 1.9-3.7 ALBUMIN/GLOBULIN RATIO 1.4 (calc) 1.0-2. 5 BILIRUBIN, TOTAL 0.3 mg/dL 0.2-1.2 ALKALINE PHOSPHATASE 127 U/L 33-115 AST 23 U/L 10-30 ALT 30 U/L 6-29 A1C - 05/22/19 12:27 HEMOGLOBIN A1c 7.7 % of total Hgb <5.7 Encounters ACCT No. Visit Date/Time Discharge Status Pt. Type Provider Facility Loc./Unit Complaint [id number] 01/18/2019 13:40:00 01/18/2019 23:59: 59 [facility] Outpatient SOMMER NICKY Adeel [facility] [id number] 05/22/2019 11:00:00 Document Registration [id number] 01/18/2019 13:40:00 Document Registration [id number] 01/03/2019 08:15:00 Document Registration [id number] 10/06/2018 11:00:00 Document Registration [id number] 02/28/2019 19:10:00 019 15:24:00 DIS Inpatient MIKE IRIZARRY, GUILHERME Zimmer [facility] 4TH INTRACTABLE BACK PAIN,L EUKOCYTOSIS [id number] 11/04/2018 12:22:00 15:20:00 DIS Emergency TAHIRA WATERS DO Via [facility] ER FS CHEST PAIN; SOB [id number] 07/28/2018 22:09:00 01:45:00 DIS Emergency MCKENNA HOFFMANN MD Via [facility] ER FS PT WHOLE BODY IS ITCHIN G [id number] 07/19/2018 15:46:00 19:45:00 DIS Emergency MCKENNA HOFFMANN MD Via [facility] ER FS CHEST PAINS [id number] 07/04/2018 20:47:00 01:10:00 DIS Emergency ANNIE NANCE DO Via [facility] ER FS HEADACHE
--- NOTE | 2019-08-06 21:04 | ED Chest Pain ---
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 [facility] Par[facility]er she's been complaining of chest pain most of the day. For the past couple days. Family members have been reluctant to bring her to the emergency department due to risk of current rivera virus. Patient has no specific issues medically other than her history of stroke as stated above. This stroke to place due to an injury in her neck that since 1 causing her develop a blood clot because the stroke. Patient has no cardiac history. Patient describes the pain as constant and intermittent in the chest. Waxing and waning. We will do medical evaluation treatment is needed. Allergies and Home Medications Allergies Coded Allergies: cefazolin (Verified Allergy, Unknown, 07/04/18) enoxaparin (Verified Allergy, Unknown, 07/04/18) Uncoded Allergies: PENICILLIN (Allergy, Unknown, 07/04/18) Home Medications Aspirin 325 Mg Tablet.dr, 325 MG PO DAILY, (Reported) Atorvastatin Calcium 10 Mg Tablet, 10 MG PO DAILY, (Reported) Baclofen 20 Mg Tablet, 20 MG PO QID, (Reported) Cyclobenzaprine HCl 10 Mg Tablet, 10 MG PO QID, (Reported) Docusate Sodium 100 Mg Capsule, 100 MG PO HS, (Reported) Docusate Sodium 100 Mg Capsule, 200 MG PO DAILY, (Reported) Dulaglutide 1.5 Mg/0.5 Ml Pen.injctr, 1.5 MG SC Fr, (Reported) Famotidine 40 Mg Tablet, 40 MG PO BID, (Reported) Gabapentin 300 Mg Capsule, 600 MG PO QID, (Reported) Glipizide 10 Mg Tablet, 10 MG PO BID, (Reported) Hydroxyzine HCl 50 Mg Tablet, 50 MG PO Q6H PRN for ITCHING, (Reported) Levetiracetam 100 Mg/Ml Solution, 10 ML PO BID, (Reported) Lisinopril 20 Mg Tablet, 20 MG PO DAILY, (Reported) Meloxicam 7.5 Mg Tablet, 7.5 MG PO DAILY PRN for CHEST/LEG PAIN, (Reported) Metoclopramide HCl 5 Mg Tablet, 5 MG PO QID, (Reported) Metoprolol Tartrate 50 Mg Tablet, 50 MG PO BID, (Reported) Montelukast Sodium 10 Mg Tablet, 10 MG PO HS, (Reported) Omeprazole 20 Mg Capsule.dr, 20 MG PO DAILY, (Reported) Oxycodone HCl 5 Mg Tablet, 5 MG PO Q4H PRN for PAIN-SEVERE, (Reported) 1-2 TABS Potassium Chloride 10 Meq Capsule.er, 10 MEQ PO DAILY, (Reported) Sitagliptin Phosphate 100 Mg Tablet, 100 MG PO DAILY, (Reported) Vitamin C/Biotin 1 Each Tab.chew, 2 TAB.CHEW PO DAILY, (Reported) Patient Home Medication List Home Medication List Reviewed: Yes Review of Systems Review of Systems Constitutional: no symptoms reported, see HPI; No chills, No diaphoresis, No dizziness, No fever, No malaise, No weakness, No weight gain, No weight loss, No other EENTM: No No Symptoms Reported, No See HPI, No Blurred Vision, No Double Vision, No Eye Pain, No Eye Tearing, No Ear Drainage, No Ear Pain, No Mouth Pain, No Mouth Swelling, No Nose Congestion, No Nose Pain, No Throat Pain, No Throat Swelling, No Other Respiratory: Denies No Symptoms Reported, Denies See HPI, Denies Cough, Denies Orthopnea, Denies Shortness of Air, Denies SOA With Exertion, Denies SOA at Rest, Denies Stridor, Denies Wheezing, Denies Other Cardiovascular: Denies No Symptoms Reported; See HPI, Chest Pain; Denies Edema, Denies Irregular Heart Rate, Denies Lightheadedness, Denies Palpitations, Denies Syncope, Denies Other Gastrointestinal: Denies No Symptoms Reported, Denies See HPI, Denies Abdomen Distended, Denies Abdominal Pain, Denies Blood Streaked Stools, Denies Constipated, Denies Diarrhea, Denies Difficulty Swallowing, Denies Nausea, Denies Poor Appetite, Denies Poor Fluid Intake, Denies Rectal Bleeding, Denies Vomiting, Denies Other Genitourinary: Denies No Symptoms Reported, Denies See HPI, Denies Burning, Denies Discharge, Denies Drainage, Denies Frequency, Denies Flank Pain, Denies Hematuria, Denies Incontinence, Denies Pain, Denies Urgency, Denies Other Musculoskeletal: No no symptoms reported, No see HPI, No back pain, No gout, No joint pain, No joint swelling, No muscle pain, No muscle stiffness, No muscle cramps, No muscle twitching, No muscle weakness, No neck pain, No other Skin: No no symptoms reported, No see HPI, No change in color, No change in hair/nails, No dryness, No hx of skin cancer, No lesions, No lumps, No pruritus, No rash, No other Psychiatric/Neurological: Denies No Symptoms Reported, Denies See HPI, Denies Anxiety, Denies Depressed, Denies Emotional Problems, Denies Headache, Denies Numbness, Denies Paresthesia, Denies Pre-Existing Deficit, Denies Seizure, Denies Tingling, Denies Tremors, Denies Weakness, Denies Other Endocrine: Denies No Symptoms Reported, Denies See HPI, Denies Excessive Sweating, Denies Flushing, Denies Intolerance to Cold, Denies Intolerance to Heat, Denies Increased Hunger, Denies Increased Thrist, Denies Increased Urine, Denies Unexplained Weight Gain, Denies Unexplaned Weight Loss, Denies Other Past Gzlodfh-Nuslne-Tpuott Hx Patient Social History 2nd Hand Smoke Exposure: No Recent Foreign Travel: No Contact w/Someone Who Travel: No Recent Hopitalizations: No Seasonal Allergies Seasonal Allergies: No Past Medical History Surgeries: No Respiratory: No Cardiac: Yes High Cholesterol, Hypertension Neurological: Yes (2013 cva) Headaches /Migraines, Paralysis, Spinal Cord Injury Genitourinary: No Gastrointestinal: No Musculoskeletal: No Endocrine: Yes Diabetes, Non-Insulin dep HEENT: No Cancer: No Psychosocial: No Integumentary: No Blood Disorders: No Family Medical History No Pertinent Family Hx Physical Exam Vital Signs Vital Signs - First Documented 08/06/19 21:00 Temp 36.4 Pulse 89 Resp 17 B/P (MAP) 119/77 (91) O2 Delivery Room Air Capillary Refill : Height, Weight, BMI Height: 5'2.00" Weight: 213lbs. 0oz. 96.385513wk; 38.00 BMI Method:Stated General Appearance: No Apparent Distress, WD/WN HEENT: PERRL/EOMI, TMs Normal, Normal ENT Inspection, Pharynx Normal Neck: Full Range of Motion, Normal Inspection, Non Tender Respiratory: Chest Non Tender, Lungs Clear, Normal Breath Sounds, No Accessory Muscle Use, No Respiratory Distress Cardiovascular: Regular Rate, Rhythm, No Edema, No Gallop, No JVD, No Murmur, Normal Peripheral Pulses Gastrointestinal: Normal Bowel Sounds, No Organomegaly, No Pulsatile Mass, Non Tender Extremity: Normal Capillary Refill, Normal Inspection, Normal Range of Motion, Non Tender, No Calf Tenderness, No Pedal Edema Neurologic/Psychiatric: Alert, Motor Weakness, Sensory Deficit, Other (she has long history of residual deficits mostly on the right side and patient has michelle bility to speak due to previous stroke 5 years ago.) Progress/Results/Core Measures Results/Orders Lab Results Laboratory Tests Test 08/06/19 21:15 Range/Units White Blood Count 12.9 H 4.3-11.0 10^3/uL Red Blood Count 5.03 4.35-5.85 10^6/uL Hemoglobin 10.5 L 11.5-16.0 G/DL Hematocrit 36 35-52 % Mean Corpuscular Volume 72 L 80-99 FL Mean Corpuscular Hemoglobin 21 L 25-34 PG Mean Corpuscular Hemoglobin Concent 29 L 32-36 G/DL Red Cell Distribution Width 17.2 H 10.0-14.5 % Platelet Count 283 130-400 10^3/uL Mean Platelet Volume 11.4 H 7.4-10.4 FL Neutrophils (%) (Auto) 57 42-75 % Lymphocytes (%) (Auto) 34 12-44 % Monocytes (%) (Auto) 6 0-12 % Eosinophils (%) (Auto) 3 0-10 % Basophils (%) (Auto) 1 0-10 % Neutrophils # (Auto) 7.3 1.8-7.8 X 10^3 Lymphocytes # (Auto) 4.3 H 1.0-4.0 X 10^3 Monocytes # (Auto) 0.8 0.0-1.0 X 10^3 Eosinophils # (Auto) 0.4 H 0.0-0.3 10^3/uL Basophils # (Auto) 0.1 0.0-0.1 10^3/uL Prothrombin Time 13.2 12.2-14.7 SEC INR Comment 1.0 0.8-1.4 Sodium Level 137 135-145 MMOL/L Potassium Level 4.3 3.6-5.0 MMOL/L Chloride Level 103 98-107 MMOL/L Carbon Dioxide Level 23 21-32 MMOL/L Anion Gap 11 5-14 MMOL/L Blood Urea Nitrogen 7 7-18 MG/DL Creatinine 0.53 L 0.60-1.30 MG/DL Estimat Glomerular Filtration Rate > 60 BUN/Creatinine Ratio 13 Glucose Level 235 H 70-105 MG/DL Calcium Level 9.1 8.5-10.1 MG/DL Troponin I < 0.30 <0.30 NG/ML My Orders Orders - THANIA BLANCA MD Ekg Tracing (08/06/19 20:58) Chest 1 View Ap/Pa Only (08/06/19 20:58) Cbc With Automated Diff (08/06/19 20:58) Basic Metabolic Panel (08/06/19 20:58) Protime With Inr (08/06/19 20:58) Troponin I Fs (08/06/19 20:58) Aspirin Tablet (Aspirin Tablet) (08/06/19 21:15) Lidocaine 2% Viscous 15 Ml (Xylocaine Vi (08/06/19 21:30) Antacid Suspension (Mylanta Suspension (08/06/19 21:30) Medications Given in ED Current Medications Medications Dose Ordered Sig/Milly Route Start Time Stop Time Status Last Admin Dose Admin Al Hydrox/Mg Hydrox/Simethicone 30 ml ONCE ONCE PO 08/06/19 21:30 08/06/19 21:31 DC 08/06/19 21:29 30 ML Aspirin 325 mg ONCE ONCE PO 08/06/19 21:15 08/06/19 21:16 DC 08/06/19 21:26 325 MG Lidocaine HCl 5 ml ONCE ONCE PO 08/06/19 21:30 08/06/19 21:31 DC 08/06/19 21:29 5 ML Vital Signs/I&O 08/06/19 08/06/19 21:00 21:00 Temp 36.4 Pulse 89 Resp 17 B/P (MAP) 119/77 (91) O2 Delivery Room Air Room Air Progress Progress Note : Time: 22:08 Progress Note Negative evaluation in the emergency department. Patient states she is much improved after a GI cocktail. When asking about a history of reflux patient states she does have a history of heartburn. He does not remember any medication she takes per say. We'll give the patient prescription for Carafate. Patient instructed to follow up with her primary care physician patient should possibly benefit from an outpatient EGD. Initial ECG Impression Date: Aug 06, 2019 Initial ECG Impression Time: 20:55 Initial ECG Rate: 90 Initial ECG Rhythm: Normal Sinus Initial ECG Intervals: Normal Initial ECG Impression: Normal Comment Sinus rhythm with a left ventricular hypertrophy. Nonspecific EKG changes heart rate 90 Departure Impression Primary Impression: Chest pain Additional Impression: Gastroesophageal reflux disease Disposition: 01 HOME, SELF-CARE Condition: Stable Departure-Patient Inst. Decision time for Depature: 22:09 Referrals: NICKY NOVOA MD (PCP/Family) Primary Care Physician Patient Instructions: Chest Pain That Is Not Caused by the Heart (DC), Acid Reflux (Gastroesophageal Reflux Disease), Adult (DC) Add. Discharge Instructions: Encourage by mouth fluids. Take medications as instructed. Nageezi diet. Follow up with her primary care physician and discuss outpatient EGD evaluation for reflux. Continue all home medication. Try to elevate head of bed at night when sleeping. All discharge instructions reviewed with patient and/or family. Voiced understanding. Scripts Sucralfate (Carafate) 1 Gm Tablet 1 GM PO TIDAC for 10 Days, #30 TAB 0 Refills Prov: THANIA BLANCA MD 08/06/19 THANIA BLANCA MD Aug 06, 2019 21:04
[2019-08-06] MEDS ORDERED: ASPIRIN 325 MG (5 GR) TABLET PO ONE (21:15)
[2019-08-06 21:25] LABS: WHITE BLOOD COUNT 12.9 10^3/uL (4.3-11.0)
[2019-08-06 21:26] LABS: BASOPHILS # (AUTO) 0.1 10^3/uL (0.0-0.1); BASOPHILS % (AUTO) 1 % (0-10); EOSINOPHILS # (AUTO) 0.4 10^3/uL (0.0-0.3); EOSINOPHILS % (AUTO) 3 % (0-10); HEMATOCRIT 36 % (35-52); HEMOGLOBIN 10.5 G/DL (11.5-16.0); LYMPHOCYTES # (AUTO) 4.3 X 10^3 (1.0-4.0); LYMPHOCYTES % (AUTO) 34 % (12-44); MEAN CORPUSCULAR HEMOGLOBIN 21 PG (25-34); MEAN CORPUSCULAR HGB CONC 29 G/DL (32-36); MEAN CORPUSCULAR VOLUME 72 FL (80-99); MEAN PLATELET VOLUME 11.4 FL (7.4-10.4); MONOCYTES # (AUTO) 0.8 X 10^3 (0.0-1.0); MONOCYTES % (AUTO) 6 % (0-12); NEUTROPHILS # (AUTO) 7.3 X 10^3 (1.8-7.8); NEUTROPHILS % (AUTO) 57 % (42-75); PLATELET COUNT 283 10^3/uL (130-400); RED CELL DISTRIBUTION WIDTH 17.2 % (10.0-14.5)
[2019-08-06] MEDS ORDERED: LIDOCAINE 2% VISCOUS 15 ML UDC PO ONE (21:30)
[2019-08-06] MEDS ORDERED: ANTACID SUSP 30 ML UDC (MYLANTA) PO ONE (21:30)
[2019-08-06 21:33] LABS: PROTHROMBIN TIME PATIENT 13.2 SEC (12.2-14.7)
[2019-08-06 21:39] LABS: CARBON DIOXIDE 23 MMOL/L (21-32); CHLORIDE 103 MMOL/L (98-107); POTASSIUM 4.3 MMOL/L (3.6-5.0); SODIUM 137 MMOL/L (135-145)
[2019-08-06 21:40] LABS: BUN/CREATININE RATIO 13; CALCIUM 9.1 MG/DL (8.5-10.1); CREATININE SERUM 0.53 MG/DL (0.60-1.30); GFR ESTIMATED > 60; GLUCOSE 235 MG/DL (70-105)
--- NOTE | 2019-08-06 21:41 | Diagnostic Imaging Report ---
INDICATION: Chest pain. History of stroke. COMPARISON: 11/04/2018. EXAMINATION: Portable chest. FINDINGS: The lungs are well-aerated and clear. There is no air-trapping. There are no infiltrates. The heart is not enlarged. There is no pulmonary edema. No pneumothorax or pleural effusion. No bony abnormality. IMPRESSION: Normal portable chest. Dictated by: Dictated on workstation # [id number]
[2019-08-06] MEDS ORDERED: SUCR1TAB36 PO (22:10)
[2019-08-06 22:17] VITALS: BP 113/79
== END 2019-08-06 22:17 | disposition home or self-care (01) ==
LOC: EDUNIT# 20:50 → ER FS 20:52
DX: K21.9 Gastro-esophageal reflux disease without esophagitis (principal); I10 Essential (primary) hypertension; E11.9 Type 2 diabetes mellitus without complications; E78.00 Pure hypercholesterolemia, unspecified; G83.9 Paralytic syndrome, unspecified; Z86.73 Personal history of transient ischemic attack (TIA), and cerebral infarction without residual deficits; Z88.0 Allergy status to penicillin; Z88.1 Allergy status to other antibiotic agents; Z88.8 Allergy status to other drugs, medicaments and biological substances; Z79.82 Long term (current) use of aspirin; Z79.84 Long term (current) use of oral hypoglycemic drugs
CPT/HCPCS: 36415; 71045; 80048; 84484; 85025; 85610; 93005

== ENCOUNTER 2019-09-30 01:24 | Emergency (ER) | payer MEDICARE, MEDICAID ==
[~2019-09-30] VITALS: Ht 157.5 cm; Wt 96.8 kg
--- OUTSIDE RECORDS SUMMARY | 2019-09-30 01:31 | XMS REPORT | Continuity of Care Document ---
Author Organization Unknown Address Unknown Phone Unavailable Allergies Active Description Code Type Severity Reaction Onset Reported/Identified Relationship to Patient Clinical Status Yes cefazolin [id number] Drug Allergy Unknown N/A 07/04/2018 Yes enoxaparin [id number] Drug Allerg y Unknown N/A 07/04/2018 Yes [...] OF THE NERVOUS S 07/06/2018 GOYO NOVAK ANNIE Lott Ot Z86. 73 PRSNL HX OF [...] 07/29/2018 MCKENNA HOFFMANN MD Ot Z79.0 1 [facility] (CURRENT) USE OF ANTICOAGULANT 07/29/2018 MCKENNA HOFFMANN [...] 07/30/2018 MCKENNA HOFFMANN MD, Ot Z79.0 1 [employer] (CURRENT) USE OF ANTICOAGULANT 07/30/2018 MCKENNA HOFFMANN [...] Ot E78.00 PURE HYPERCHOLESTEROLEMIA, UNSPECIFIED 11/04/2018 EVELIN DOATHIRA Ot G43.909 MIGRAINE, UNSP, NOT INTRACTABLE, WITHOUT [...] GUILHERME MCKEON MD Ot Z79.8 99 OTHER [facility] (CURRENT) DRUG THERAPY 03/02/2019 GUILHERME MCKEON MD [...] GUILHERME MCKEON MD Ot Z79.8 99 OTHER [facility] (CURRENT) DRUG THERAPY 03/02/2019 GUILHERME MCKEON MD Ot Z86.7 3 PRSNL HX OF TIA (TIA), AND CEREB INFRC W 03/02/2019 GUILHERME MCKEON MD, Ot Z88.0 ALLERGY STATUS TO PENICILLIN 03/02/2019 GUILHERME MCKEON MD Ot Z88.1 ALLERGY STATUS TO OTHER ANTIBIOTIC AGENT 08/06/2019 THANIA BLANCA MD Ot E11.9 TYPE 2 DIABETES MELLITUS WITHOUT COMPLIC 08/06/2019 THANIA BLANCA MD, Ot E78.00 PURE HYPERCHOLESTEROLEMIA, UNSPECIFIED 08/06/2019 THANIA BLANCA MD, Ot G83.9 PARALYTIC SYNDROME, UNSPECIFIED 08/06/2019 THANIA BLANCA MD Ot I1 0 ESSENTIAL (PRIMARY) HYPERTENSION 08/06/2019 THANIA BLANCA MD, Ot K21.9 GASTRO-ESOPHAGEAL REFLUX DISEASE WITHOUT 08/06/2019 THANIA BLANCA MD, Ot R07.9 CHEST PAIN, UNSPECIFIED 08/06/2019 THANIA BLANCA MD, Ot Z79.82 [employer]CH[employer] (CURRENT) USE OF ASPIRIN 08/06/2019 THANIA BLANCA MD, Ot Z79.84 [facility] (CURRENT) USE OF ORAL HYPOGLYC 08/06/2019 THANIA BLANCA MD, Ot Z86.73 PRSNL HX OF TIA (TIA), AND CEREB INFRC W 08/06/2019 THANIA BLANCA MD, Ot Z88.0 ALLERGY STATUS TO PENICILLIN 08/06/2019 THANIA BLANCA MD, Ot Z88.1 ALLERGY STATUS TO OTHER ANTIBIOTIC AGENT 08/06/2019 THANIA BLANCA MD, Ot Z88.8 ALLERGY STATUS TO OTH DRUG/MEDS/BIOL SUB 08/09/2019 THANIA BLANCA MD, Ot E11.9 TYPE 2 DIABETES MELLITUS WITHOUT COMPLIC 08/09/2019 THANIA BLANCA MD, Ot E78.00 PURE HYPERCHOLESTEROLEMIA, UNSPECIFIED 08/09/2019 THANIA BLANCA MD, Ot G83.9 PARALYTIC SYNDROME, UNSPECIFIED 08/09/2019 THANIA BLANCA MD, Ot I1 0 ESSENTIAL (PRIMARY) HYPERTENSION 08/09/2019 THANIA BLANCA MD, Ot K21.9 GASTRO-ESOPHAGEAL REFLUX DISEASE WITHOUT 08/09/2019 THANIA BLANCA MD, Ot R07.9 CHEST PAIN, UNSPECIFIED 08/09/2019 THANIA BLANCA MD, Ot Z79.82 [employer]WORK [employer]CH[employer] (CURRENT) USE OF ASPIRIN 08/09/2019 THANIA BLANCA MD, Ot Z79.84 [employer]CHIT[employer] (CURRENT) USE OF ORAL HYPOGLYC 08/09/2019 THANIA BLANCA MD, Ot Z86.73 PRSNL HX OF TIA (TIA), AND CEREB INFRC W 08/09/2019 THANIA BLANCA MD, Ot Z88.0 ALLERGY STATUS TO PENICILLIN 08/09/2019 THANIA BLANCA MD, Ot Z88.1 ALLERGY STATUS TO OTHER ANTIBIOTIC AGENT 08/09/2019 THANIA BLANCA MD, Ot Z88.8 ALLERGY STATUS TO OTH DRUG/MEDS/BIOL SUB Procedures There is no data. Results Test [...] 7-25 CREATININE 0.57 mg/dL 0.50-1.10 eGFR NON-AFR. QATARI 114 mL/min/1.73m2 > OR = 60 eGFR [...] A1c 7.7 % of total Hgb <5.7 Complete blood count (CBC) with automate d white blood cell (WBC) differential - 08/06/19 21:15 Blood leukocytes automated count (number/volume) 12.9 10*3/uL 4.3-11.0 Blood erythrocytes automated count (number/volume) 5.03 10*6/uL 4.35-5.85 Venous blood hemoglobin measurement (mass/volume) 10.5 g/dL 11.5-16.0 Blood hematocrit (volume fraction) 36 % 35-52 Automated erythrocyte mean corpuscular volume 72 [ foz_us] 80-99 Automated erythrocyte mean corpuscular h emoglobin (mass per erythrocyte) 21 pg 25-34 Automated erythrocyte mean corpuscular h emoglobin concentration measurement (mass/volume) 29 g/dL 32-36 Automated erythrocyte distribution width ratio 17. 2 % 10.0- 14.5 Automated blood platelet count (count/volume) 283 10*3/uL 130-400 Automated blood platelet mean volume measurement 11.4 [foz_us] 7.4-10.4 Automated blood neutrophils/100 leukocytes 57 % 42-75 Automated blood lymphocytes/100 leukocytes 34 % 12-44 Blood monocytes/100 leukocytes 6 % 0-12 Automated blood eosinophils/100 leukocytes 3 % 0-10 Automated blood basophils/100 leukocytes 1 % 0-10 Blood neutrophils automated count (number/volume) 7.3 10*3 1.8-7.8 Blood lymphocytes automated count (number/volume) 4.3 10*3 1.0-4.0 Blood monocytes automated count (number/volume) 0. 8 10*3 0.0-1.0 Automated eosinophil count 0.4 10*3/uL 0 .0-0.3 Automated blood basophil count (count/volume) 0.1 10*3/uL 0.0-0.1 PT panel in platelet poor plasma by coag ulation assay - 08/06/19 21:15 Prothrombin time (PT) in platelet poor plasma by coagu lation assay 13.2 s 12.2-14.7 INR in platelet poor plasma or blood by coagulation as say 1.0 0.8-1.4 Whole blood basic metabolic panel - 09/19 21:15 Serum or plasma sodium measurement (moles/volume) 137 mmol/L 135-145 Serum or plasma potassium measurement (moles/volume) 4.3 mmol/L 3.6-5.0 Serum or plasma chloride measurement (moles/volume) 103 mmol/L 98-107 Carbon dioxide 23 mmol/L 21-32 Serum or plasma anion gap determination (moles/volume) 11 mmol/L 5-14 Serum or plasma urea nitrogen measurement (mass/volume ) 7 mg/dL 7-18 Serum or plasma creatinine measurement (mass/volume) 0.53 mg/dL 0.60-1.30 Serum or plasma urea nitrogen/creatinine mass ratio 13 NRG Serum or plasma creatinine measurement w ith calculation of estimated glomerular filtration rate > NRG Serum or plasma glucose measurement (mass/volume) 235 mg/dL 70-105 Serum or plasma calcium measurement (mass/volume) 9.1 mg/dL 8.5-10.1 TROPONIN I FS - 08/06/19 21:15 TROPONIN I FS < 0.30 <0.30 Encounters ACCT No. Visit Date/Time Discharge Status Pt. Type Provider Facility Loc./Unit Complaint [id number] 01/18/2019 13:40:00 01/18/2019 23:59: 59 [facility] Outpatient NICKY NOVOA [facility] [id number] 05/22/2019 11:00:00 Document Registration [id number] 01/18/2019 13:40:00 Document Registration [id number] 01/03/2019 08:15:00 Document Registration [id number] 10/06/2018 11:00:00 Document Registration [id number] 08/06/2019 20:52:00 22:17:00 DIS Emergency RIANNA IRIZARRY, THANIA Rosado [facility] ER FS CHEST PAIN [id number] 02/28/2019 19:10:00 15:24:00 DIS Inpatient MIKE IRIZARRY, GUILHERME R [facility] 4TH INTRACTABLE BACK PAIN,L EUKOCYTOSIS [id number] 11/04/2018 12:22:00 15:20:00 DIS Emergency TAHIRA WATERS DO [facility] ER FS CHEST PAIN; SOB [id number] 07/28/2018 22:09:00 01:45:00 DIS Emergency MCKENNA HOFFMANN MD [facility] ER FS PT WHOLE BODY IS ITCHIN G [id number] 07/19/2018 15:46:00 19:45:00 DIS Emergency MCKENNA HOFFMANN MD [facility] ER FS CHEST PAINS [id number] 07/04/2018 20:47:00 01:10:00 DIS Emergency ANNIE NANCE DO [facility] ER FS HEADACHE [id number] 09/30/2019 01:27:[address] Emergency GOYO IRIZARRY, NIKKO Chavez [facility] ER FS HEADACHES
[2019-09-30 01:37] VITALS: BP 128/72
[2019-09-30] MEDS ORDERED: morphine INJ 10 MG/ML 1ML (SYR OR VIAL) IM STA (01:38)
--- NOTE | 2019-09-30 01:46 | ED Headache ---
General Chief Complaint: Chest Pain Stated Complaint: HEADACHES Source: patient History of Present Illness Date Seen by Provider: September 30, 2019 Time Seen by Provider: 01:43 Initial Comments Pt presents with headache. She reportedly has a history of headaches, took 2 oxycodone at home which didn't really help. Also has pain in the back of her neck. She reportedly is aphasic from a prior stroke, however she does seem to understand my questions and responds with yes or no or ok to my questions. She was reportedly dropped off in the ER by her mother. Allergies and Home Medications Allergies Coded Allergies: cefazolin (Verified Allergy, Unknown, 07/04/18) enoxaparin (Verified Allergy, Unknown, 07/04/18) Uncoded Allergies: PENICILLIN (Allergy, Unknown, 07/04/18) Home Medications Aspirin 325 Mg Tablet.dr, 325 MG PO DAILY, (Reported) Atorvastatin Calcium 10 Mg Tablet, 10 MG PO DAILY, (Reported) Baclofen 20 Mg Tablet, 20 MG PO QID, (Reported) Cyclobenzaprine HCl 10 Mg Tablet, 10 MG PO QID, (Reported) Docusate Sodium 100 Mg Capsule, 100 MG PO HS, (Reported) Docusate Sodium 100 Mg Capsule, 200 MG PO DAILY, (Reported) Dulaglutide 1.5 Mg/0.5 Ml Pen.injctr, 1.5 MG SC Fr, (Reported) Famotidine 40 Mg Tablet, 40 MG PO BID, (Reported) Gabapentin 300 Mg Capsule, 600 MG PO QID, (Reported) Glipizide 10 Mg Tablet, 10 MG PO BID, (Reported) Hydroxyzine HCl 50 Mg Tablet, 50 MG PO Q6H PRN for ITCHING, (Reported) Levetiracetam 100 Mg/Ml Solution, 10 ML PO BID, (Reported) Lisinopril 20 Mg Tablet, 20 MG PO DAILY, (Reported) Meloxicam 7.5 Mg Tablet, 7.5 MG PO DAILY PRN for CHEST/LEG PAIN, (Reported) Metoclopramide HCl 5 Mg Tablet, 5 MG PO QID, (Reported) Metoprolol Tartrate 50 Mg Tablet, 50 MG PO BID, (Reported) Montelukast Sodium 10 Mg Tablet, 10 MG PO HS, (Reported) Omeprazole 20 Mg Capsule.dr, 20 MG PO DAILY, (Reported) Oxycodone HCl 5 Mg Tablet, 5 MG PO Q4H PRN for PAIN-SEVERE, (Reported) 1-2 TABS Potassium Chloride 10 Meq Capsule.er, 10 MEQ PO DAILY, (Reported) Sitagliptin Phosphate 100 Mg Tablet, 100 MG PO DAILY, (Reported) Sucralfate 1 Gm Tablet, 1 GM PO TIDAC Prescribed by: THANIA BLANCA on 08/06/19 2210 Vitamin C/Biotin 1 Each Tab.chew, 2 TAB.CHEW PO DAILY, (Reported) Patient Home Medication List Home Medication List Reviewed: Yes Review of Systems Review of Systems Constitutional: no symptoms reported Cardiovascular: no symptoms reported Musculoskeletal: neck pain Psychiatric/Neurological: Headache All Other Systems Reviewed Negative Unless Noted: Yes Past Wlbuxjv-Vojzkp-Zmguoh Hx Patient Social History Alcohol Use: Denies Use Recreational Drug Use: No Smoking Status: Never a Smoker 2nd Hand Smoke Exposure: No Recent Foreign Travel: No Contact w/Someone Who Travel: No Recent Hopitalizations: No Physical Abuse: No Sexual Abuse: No Mistreated: No Fear: No Seasonal Allergies Seasonal Allergies: No Past Medical History Surgeries: No Respiratory: No Cardiac: Yes High Cholesterol, Hypertension Neurological: Yes (2013 cva) Headaches /Migraines, Paralysis, Spinal Cord Injury Genitourinary: No Gastrointestinal: No Musculoskeletal: No Endocrine: Yes Diabetes, Non-Insulin dep HEENT: No Cancer: No Psychosocial: No Integumentary: No Blood Disorders: No Family Medical History No Pertinent Family Hx Physical Exam Vital Signs Vital Signs - First Documented 09/30/19 01:37 Temp 36.2 Pulse 96 Resp 20 B/P (MAP) 128/72 (90) Pulse Ox 92 O2 Delivery Room Air Capillary Refill : Height, Weight, BMI Height: 5'2.00" Weight: 213lbs. 0oz. 96.812365dm; 38.00 BMI Method:Stated General Appearance: WD/WN, no apparent distress HEENT: PERRL/EOMI Neck: non-tender Cardiovascular: regular rate, rhythm Respiratory: lungs clear, normal breath sounds, no respiratory distress Psychiatric: alert Motor/Sensory: no motor deficit, no sensory deficit Progress/Results/Core Measures Results/Orders My Orders Orders - NIKKO NANCE MD Ct Head Wo (09/30/19 01:38) Morphine Injection (Morphine Injection (09/30/19 01:38) Vital Signs/I&O 09/30/19 01:37 Temp 36.2 Pulse 96 Resp 20 B/P (MAP) 128/72 (90) Pulse Ox 92 O2 Delivery Room Air Progress Progress Note : Progress Note 0225 CT with no acute findings. Feels better after Morphine given. Will discharge home. Departure Impression Primary Impression: Headache Qualified Codes: R51 - Headache Disposition: HOME, SELF-CARE Condition: Improved Departure-Patient Inst. Referrals: NICKY NOVOA MD (PCP/Family) Primary Care Physician Patient Instructions: Headache, Adult (DC) NIKKO NANCE MD September 30, 2019 01:46
--- NOTE | 2019-09-30 02:08 | NUR ---
pt nods yes when asked if steiner is better.
--- NOTE | 2019-09-30 02:25 | NUR ---
pts mother contacted to come and pick pt up, states she will be here shortly.
--- NOTE | 2019-09-30 07:10 | Diagnostic Imaging Report ---
PROCEDURE: CT head without contrast. TECHNIQUE: Multiple contiguous axial images were obtained through the brain without the use of intravenous contrast. Auto Exposure Controls were utilized during the CT exam to meet ALARA standards for radiation dose reduction. INDICATION: History of prior stroke. Nonverbal. Frequent headaches with new headache started 2 hours ago. History of prior brain surgery. EXAMINATION: CT brain without contrast dated 09/30/2019 COMPARISON: 11/04/2018 FINDINGS: Again noted is a large area of encephalomalacia involving much of the left hemisphere stable in appearance. No acute hemorrhage is seen. No new infarcts appreciated with no mass, mass effect or midline shift. Ventricles are stable. Ex-vacuo dilatation of the left lateral ventricle again seen. The osseous structures redemonstrate frontal parietal temporal craniotomies. No acute fractures. No acute findings of sinus disease. Mastoid air cells unremarkable. IMPRESSION: 1. Diffuse chronic findings similar to previous imaging with no acute process seen. If continued concern, MRI may provide further characterization as indicated. The pertinent findings agree with the preliminary report. Dictated by: Dictated on workstation # [id number]
== END 2019-09-30 02:29 | disposition home or self-care (01) ==
LOC: EDUNIT# 01:24 → ER FS 01:27
DX: R51 Headache (principal); I10 Essential (primary) hypertension; E11.9 Type 2 diabetes mellitus without complications; E78.00 Pure hypercholesterolemia, unspecified; G83.9 Paralytic syndrome, unspecified; Z86.69 Personal history of other diseases of the nervous system and sense organs; Z86.73 Personal history of transient ischemic attack (TIA), and cerebral infarction without residual deficits; Z88.1 Allergy status to other antibiotic agents; Z88.0 Allergy status to penicillin; Z88.8 Allergy status to other drugs, medicaments and biological substances; Z79.82 Long term (current) use of aspirin; Z79.84 Long term (current) use of oral hypoglycemic drugs
CPT/HCPCS: 70450; 96372

== ENCOUNTER 2019-12-02 20:29 | Emergency (ER) | payer MEDICARE, MEDICAID ==
--- OUTSIDE RECORDS SUMMARY | 2019-12-02 20:37 | XMS REPORT | Continuity of Care Document ---
Author Organization Unknown Address Unknown Phone Unavailable Allergies Active Description Code Type Severity Reaction Onset Reported/Identified Relationship to Patient Clinical Status Yes cefazolin [id number] Drug Allergy Unknown N/A 07/04/2018 Yes enoxaparin [id number] Drug Allerg y Unknown N/A 07/04/2018 Yes [...] 07/29/2018 MCKENNA HOFFMANN MD Ot Z79.0 1 ASSISTED (CURRENT) USE OF ANTICOAGULANT 07/29/2018 MCKENNA HOFFMANN [...] 07/30/2018 MCKENNA HOFFMANN MD, Ot Z79.0 1 CERTIFIED DIETARY MANAGER (CURRENT) USE OF ANTICOAGULANT 07/30/2018 MCKENNA HOFFMANN [...] GUILHERME MCKEON MD Ot Z79.8 99 OTHER ASSISTED (CURRENT) DRUG THERAPY 03/02/2019 GUILHERME MCKEON MD [...] GUILHERME MCKEON MD Ot Z79.8 99 OTHER ASSISTED (CURRENT) DRUG THERAPY 03/02/2019 GUILHERME MCKEON MD [...] UNSPECIFIED 08/06/2019 THANIA BLANCA MD, Ot Z79.82 CERTIFIED DIETARY MANAGER (CURRENT) USE OF ASPIRIN 08/06/2019 THANIA BLANCA MD, Ot Z79.84 ASSISTED (CURRENT) USE OF ORAL HYPOGLYC 08/06/2019 THANIA [...] K21.9 GASTRO-ESOPHAGEAL REFLUX DISEASE WITHOUT 08/09/2019 THANIA BALNCA MD, Ot R07.9 CHEST PAIN, UNSPECIFIED 08/09/2019 THANIA BLANCA MD, Ot Z79.82 CERTIFIED DIETARY MANAGER (CURRENT) USE OF ASPIRIN 08/09/2019 THANIA BLANCA MD, Ot Z79.84 CERTIFIED DIETARY MANAGER (CURRENT) USE OF ORAL HYPOGLYC 08/09/2019 THANIA BLANCA MD Ot Z86.73 PRSNL HX OF TIA (TIA), AND CEREB INFRC W 08/09/2019 THANIA BLANCA MD Ot Z88.0 ALLERGY STATUS TO PENICILLIN 08/09/2019 THANIA BLANCA MD, Ot Z88.1 ALLERGY STATUS TO OTHER ANTIBIOTIC AGENT 08/09/2019 THANIA BLANCA MD Ot Z88.8 ALLERGY STATUS TO OTH DRUG/MEDS/BIOL SUB 09/30/2019 NIKKO NANCE MD Ot E11.9 TYPE 2 DIABETES MELLITUS WITHOUT COMPLIC 09/30/2019 NIKKO NANCE MD Ot E78.0 0 PURE HYPERCHOLESTEROLEMIA, UNSPECIFIED 09/30/2019 NIKKO NANCE MD Ot G83.9 PARALYTIC SYNDROME, UNSPECIFIED 09/30/2019 NIKKO NANCE MD Ot I10 ESSENTIAL (PRIMARY) HYPERTENSION 09/30/2019 NIKKO NANCE MD Ot R51 HEADACHE 09/30/2019 NIKKO NANCE MD Ot Z79.8 2 ASSISTED (CURRENT) USE OF ASPIRIN 09/30/2019 NIKKO NANCE MD Ot Z79.8 4 ASSISTED (CURRENT) USE OF ORAL HYPOGLYC 09/30/2019 NIKKO NANCE MD Ot Z86.6 9 PERSONAL HISTORY OF DIS OF THE NERVOUS S 09/30/2019 NIKKO NANCE MD, Ot Z86.7 3 PRSNL HX OF TIA (TIA), AND CEREB INFRC W 09/30/2019 NIKKO NANCE MD Ot Z88.0 ALLERGY STATUS TO PENICILLIN 09/30/2019 NIKKO NANCE MD Ot Z88.1 ALLERGY STATUS TO OTHER ANTIBIOTIC AGENT 09/30/2019 NIKKO NANCE MD Ot Z88.8 ALLERGY STATUS TO OTH DRUG/MEDS/BIOL SUB 10/03/2019 NIKKO NANCE MD Ot E11.9 TYPE 2 DIABETES MELLITUS WITHOUT COMPLIC 10/03/2019 NIKKO NANCE MD Ot E78.0 0 PURE HYPERCHOLESTEROLEMIA, UNSPECIFIED 10/03/2019 NIKKO NANCE MD Ot G83.9 PARALYTIC SYNDROME, UNSPECIFIED 10/03/2019 NIKKO NANCE MD Ot I10 ESSENTIAL (PRIMARY) HYPERTENSION 10/03/2019 NIKKO NANCE MD Ot R51 HEADACHE 10/03/2019 NIKKO NANCE MD, Ot Z79.8 2 ASSISTED (CURRENT) USE OF ASPIRIN 10/03/2019 NIKKO NANCE MD, Ot Z79.8 4 ASSISTED (CURRENT) USE OF ORAL HYPOGLYC 10/03/2019 NIKKO NANCE MD, Ot Z86.6 9 PERSONAL HISTORY OF DIS OF THE NERVOUS S 10/03/2019 NIKKO NANCE MD, Ot Z86.7 3 PRSNL HX OF TIA (TIA), AND CEREB INFRC W 10/03/2019 NIKKO NANCE MD, Ot Z88.0 ALLERGY STATUS TO PENICILLIN 10/03/2019 NIKKO NANCE MD, Ot Z88.1 ALLERGY STATUS TO OTHER ANTIBIOTIC AGENT 10/03/2019 NIKKO NANCE MD, Ot Z88.8 ALLERGY STATUS TO OT DRUG/MEDS/BIOL SUB Procedures There is no data. [...] 7-25 CREATININE 0.57 mg/dL 0.50-1.10 eGFR NON-AFR. [place] 114 mL/min/1.73m2 > OR = 60 eGFR [...] Status Pt. Type Provider Facility Loc./Unit Complaint [id number] 11/01/2019 10:00:00 11/01/2019 23:59: 59 [facility] Outpatient CHRISTEL [facility]USTILLO [facility] [id number] 05/22/2019 11:00:00 Document Registration [id number] 01/18/2019 13:40:00 Document Registration [id number] 01/03/2019 08:15:00 Document Registration [id number] 10/06/2018 11:00:00 Document Registration [id number] 09/30/2019 01:27:00 02:29:00 DIS Emergency NIKKO NANCE MD [facility] ER FS HEADACHES [id number] 08/06/2019 20:52:00 22:17:00 DIS Emergency RIANNA IRIZARRY, THANIA Rosado [facility] ER FS CHEST PAIN [id number] 02/28/2019 19:10:00 15:24:00 DIS Inpatient MIKE IRIZARRY, GUILHERME Zimmer [facility] 4TH INTRACTABLE BACK PAIN,L EUKOCYTOSIS [id number] 11/04/2018 12:22:00 15:20:00 DIS Emergency TAHIRA WATERS DO [facility] ER FS CHEST PAIN; SOB [id number] 07/28/2018 22:09:00 01:45:00 DIS Emergency MCKENNA HOFFMANN MD [facility] ER FS PT WHOLE BODY IS ITCHIN G [id number] 07/19/2018 15:46:00 019 19:45:00 DIS Emergency MCKENNA HOFFMANN MD [facility] ER FS CHEST PAINS [id number] 07/04/2018 20:47:00 019 01:10:00 DIS Emergency ANNIE NANCE DO [facility] ER FS HEADACHE
--- NOTE | 2019-12-02 21:14 | ED General ---
General Chief Complaint: Skin/Wound Problems Stated Complaint: ITCHING Nursing Triage Note: Pt complaining of generalized itching. 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 Symptoms began hours prior to ED arrival. Patient denies rash but reports itching the back of his throat. No new medications, foods or household product exposure. Benadryl and Atarax taken prior to ED arrival. No shortness breath or wheezing. Patient seen in this emergency department a year earlier for similar complaint and was given injection with resolution of symptoms. No other acute symptoms or complaints. History obtained from patient patient's mother. Timing/Duration: 4-6 Hours Severity: Mild Modifying Factors: improves with Medication Allergies and Home Medications Allergies Coded Allergies: cefazolin (Verified Allergy, Unknown, 07/04/18) enoxaparin (Verified Allergy, Unknown, 07/04/18) Uncoded Allergies: PENICILLIN (Allergy, Unknown, 07/04/18) Home Medications Aspirin 325 Mg Tablet.dr, 325 MG PO DAILY, (Reported) Atorvastatin Calcium 10 Mg Tablet, 10 MG PO DAILY, (Reported) Baclofen 20 Mg Tablet, 20 MG PO QID, (Reported) Cyclobenzaprine HCl 10 Mg Tablet, 10 MG PO QID, (Reported) Docusate Sodium 100 Mg Capsule, 100 MG PO HS, (Reported) Docusate Sodium 100 Mg Capsule, 200 MG PO DAILY, (Reported) Dulaglutide 1.5 Mg/0.5 Ml Pen.injctr, 1.5 MG SC Fr, (Reported) Famotidine 40 Mg Tablet, 40 MG PO BID, (Reported) Gabapentin 300 Mg Capsule, 600 MG PO QID, (Reported) Glipizide 10 Mg Tablet, 10 MG PO BID, (Reported) Hydroxyzine HCl 50 Mg Tablet, 50 MG PO Q6H PRN for ITCHING, (Reported) Levetiracetam 100 Mg/Ml Solution, 10 ML PO BID, (Reported) Lisinopril 20 Mg Tablet, 20 MG PO DAILY, (Reported) Meloxicam 7.5 Mg Tablet, 7.5 MG PO DAILY PRN for CHEST/LEG PAIN, (Reported) Metoclopramide HCl 5 Mg Tablet, 5 MG PO QID, (Reported) Metoprolol Tartrate 50 Mg Tablet, 50 MG PO BID, (Reported) Montelukast Sodium 10 Mg Tablet, 10 MG PO HS, (Reported) Omeprazole 20 Mg Capsule.dr, 20 MG PO DAILY, (Reported) Oxycodone HCl 5 Mg Tablet, 5 MG PO Q4H PRN for PAIN-SEVERE, (Reported) 1-2 TABS Potassium Chloride 10 Meq Capsule.er, 10 MEQ PO DAILY, (Reported) Sitagliptin Phosphate 100 Mg Tablet, 100 MG PO DAILY, (Reported) Sucralfate 1 Gm Tablet, 1 GM PO TIDAC Prescribed by: THANIA BLANCA on 08/06/192209 Vitamin C/Biotin 1 Each Tab.chew, 2 TAB.CHEW PO DAILY, (Reported) Patient Home Medication List Home Medication List Reviewed: Yes Review of Systems Review of Systems Constitutional: see HPI EENTM: see HPI Respiratory: see HPI Cardiovascular: see HPI Skin: pruritus, other Past Sybhaja-Fgvzfz-Imffnj Hx Past Med/Social Hx: Reviewed Nursing Past Med/Soc Hx Patient Social History Alcohol Use: Denies Use Recreational Drug Use: No Smoking Status: Never a Smoker 2nd Hand Smoke Exposure: No Recent Foreign Travel: No Contact w/Someone Who Travel: No Recent Infectious Disease Expo: No Recent Hopitalizations: No Physical Abuse: No Sexual Abuse: No Seasonal Allergies Seasonal Allergies: No Past Medical History Surgeries: Yes (cranial) Respiratory: No Cardiac: Yes High Cholesterol, Hypertension Neurological: Yes (2013 cva) Headaches /Migraines, Paralysis, Spinal Cord Injury Genitourinary: No Gastrointestinal: No Musculoskeletal: No Endocrine: Yes Diabetes, Non-Insulin dep HEENT: No Cancer: No Psychosocial: No Integumentary: No Blood Disorders: No Family Medical History No Pertinent Family Hx Physical Exam Vital Signs Vital Signs - First Documented 12/02/19 20:35 Temp 35.9 Pulse 88 Resp 18 B/P (MAP) 125/82 (96) Pulse Ox 96 O2 Delivery Room Air Capillary Refill : Less Than 3 Seconds Height, Weight, BMI Height: 5'2.00" Weight: 213lbs. 0oz. 96.584997ep; 39.00 BMI Method:Stated General Appearance: No Apparent Distress, WD/WN Eyes: Bilateral Eye Normal Inspection, Bilateral Eye PERRL, Bilateral Eye EOMI HEENT: PERRL/EOMI, Normal ENT Inspection, Pharyngeal Erythema Neck: Non Tender, Supple Respiratory: Chest Non Tender, Lungs Clear Cardiovascular: Regular Rate, Rhythm Focused Exam Sepsis Stage: Ruled Out Progress/Results/Core Measures Suspected Sepsis Recent Fever Within 48 Hours: No Infection Criteria Present: None New/Unexplained Altered Menta: No Sepsis Screen: No Definite Risk SIRS Temperature: Pulse: 88 Respiratory Rate: 18 Blood Pressure 125 /82 Mean: 96 Results/Orders My Orders Orders - YARIEL BRANHAM DO Dexamethasone Injection (Decadron Inject (12/02/19 21:15) Vital Signs/I&O 12/02/19 20:35 Temp 35.9 Pulse 88 Resp 18 B/P (MAP) 125/82 (96) Pulse Ox 96 O2 Delivery Room Air Capillary Refill : Less Than 3 Seconds Blood Pressure Mean: 96 Departure Communication (Admissions) IM Decadron given. Will prescribe antihistamines and steroids with instructions to follow up with PCP as needed. Patient and parent struck to to monitor blood sugars carefully and follow up with PCP as needed. Return precautions reviewed. Patient and parent verbalized understanding agreement discharge instructions prior to departure. Pseudomonal Risk: No known risk Impression Primary Impression: Generalized pruritus Disposition: 01 HOME, SELF-CARE Condition: Stable Departure-Patient Inst. Referrals: NICKY NOVOA MD (PCP/Family) Primary Care Physician Patient Instructions: Itchy Skin Add. Discharge Instructions: Please go home and rest. Take newly prescribed medications as directed. You may take 50 mg of Benadryl this evening if itching continues. Watch her blood sugars closely and follow up with PCP if symptoms continue. Return to ED if new or worsening symptoms. All discharge instructions reviewed with patient and/or family. Voiced understanding. Scripts Hydroxyzine HCl (Hydroxyzine HCl) 50 Mg Tablet 50 MG PO Q8H, #10 TAB Prov: YARIEL BRANHAM DO 12/02/19 Famotidine (Pepcid) 20 Mg Tablet 20 MG PO BID, #10 TAB Prov: YARIEL BRANHAM DO 12/02/19 Prednisone (Prednisone) 20 Mg Tab 40 MG PO DAILY, #3 TAB 0 Refills Prov: YARIEL BRANHAM DO 12/02/19 YARIEL BRANHAM DO Dec 02, 2019 21:14
[2019-12-02] MEDS ORDERED: PRD20T PO (21:16)
[2019-12-02] MEDS ORDERED: HYDR50TA76 PO (21:16)
[2019-12-02] MEDS ORDERED: FAMO-119 PO (21:16)
[2019-12-02 21:20] VITALS: BP 125/82
== END 2019-12-02 21:21 | disposition home or self-care (01) ==
LOC: EDUNIT# 20:29 → ER FS 20:31
DX: L29.9 Pruritus, unspecified (principal); E78.00 Pure hypercholesterolemia, unspecified; I10 Essential (primary) hypertension; G43.909 Migraine, unspecified, not intractable, without status migrainosus; E11.9 Type 2 diabetes mellitus without complications; G83.9 Paralytic syndrome, unspecified; Z88.0 Allergy status to penicillin; Z88.1 Allergy status to other antibiotic agents; Z79.82 Long term (current) use of aspirin; Z79.899 Other long term (current) drug therapy
CPT/HCPCS: 99284

== ENCOUNTER 2019-12-05 22:49 | Emergency (ER) | payer MEDICARE, MEDICAID ==
[~2019-12-05 22:49] MED LIST changes: +FAMO-119 PO
--- NOTE | 2019-12-05 23:14 | ED General ---
General Chief Complaint: Glucose Problems Stated Complaint: HEADACHE,HIGH BLOOD SUGAR Nursing Triage Note: Pt was put on a steroid for itching a few days ago and now presents with hyperglycemia and a headache Nursing Sepsis Screen: No Definite Risk Source of Information: Family (mother) History of Present Illness Date Seen by Provider: Dec 05, 2019 Time Seen by Provider: 23:08 Initial Comments 44 y/o female presents (w her mother) w c/o a headache and high blood sugar, noted over 400 tonight. Recently on a steroid burst for itching....finished today. PMHx signif for CVA w residual R sided weakness and aphasia. No other complaints Allergies and Home Medications Allergies Coded Allergies: cefazolin (Verified Allergy, Unknown, 07/04/18) enoxaparin (Verified Allergy, Unknown, 07/04/18) Uncoded Allergies: PENICILLIN (Allergy, Unknown, 07/04/18) Home Medications Aspirin 325 Mg Tablet.dr, 325 MG PO DAILY, (Reported) Atorvastatin Calcium 10 Mg Tablet, 10 MG PO DAILY, (Reported) Baclofen 20 Mg Tablet, 20 MG PO QID, (Reported) Cyclobenzaprine HCl 10 Mg Tablet, 10 MG PO QID, (Reported) Docusate Sodium 100 Mg Capsule, 100 MG PO HS, (Reported) Docusate Sodium 100 Mg Capsule, 200 MG PO DAILY, (Reported) Dulaglutide 1.5 Mg/0.5 Ml Pen.injctr, 1.5 MG SC Fr, (Reported) Famotidine 40 Mg Tablet, 40 MG PO BID, (Reported) Famotidine 20 Mg Tablet, 20 MG PO BID Prescribed by: YARIEL BRANHAM on 12/02/192115 Gabapentin 300 Mg Capsule, 600 MG PO QID, (Reported) Glipizide 10 Mg Tablet, 10 MG PO BID, (Reported) Hydroxyzine HCl 50 Mg Tablet, 50 MG PO Q6H PRN for ITCHING, (Reported) Hydroxyzine HCl 50 Mg Tablet, 50 MG PO Q8H Prescribed by: YARIEL BRANHAM on 12/02/192115 Levetiracetam 100 Mg/Ml Solution, 10 ML PO BID, (Reported) Lisinopril 20 Mg Tablet, 20 MG PO DAILY, (Reported) Meloxicam 7.5 Mg Tablet, 7.5 MG PO DAILY PRN for CHEST/LEG PAIN, (Reported) Metoclopramide HCl 5 Mg Tablet, 5 MG PO QID, (Reported) Metoprolol Tartrate 50 Mg Tablet, 50 MG PO BID, (Reported) Montelukast Sodium 10 Mg Tablet, 10 MG PO HS, (Reported) Omeprazole 20 Mg Capsule.dr, 20 MG PO DAILY, (Reported) Oxycodone HCl 5 Mg Tablet, 5 MG PO Q4H PRN for PAIN-SEVERE, (Reported) 1-2 TABS Potassium Chloride 10 Meq Capsule.er, 10 MEQ PO DAILY, (Reported) Prednisone 20 Mg Tab, 40 MG PO DAILY Prescribed by: YARIEL BRANHAM on 12/02/192115 Sitagliptin Phosphate 100 Mg Tablet, 100 MG PO DAILY, (Reported) Sucralfate 1 Gm Tablet, 1 GM PO TIDAC Prescribed by: THANIA BLANCA on 08/06/192209 Vitamin C/Biotin 1 Each Tab.chew, 2 TAB.CHEW PO DAILY, (Reported) Patient Home Medication List Home Medication List Reviewed: Yes Review of Systems Review of Systems Constitutional: No fever, No malaise, No weakness EENTM: No eye pain, No vision loss Respiratory: No cough, No short of breath Cardiovascular: No chest pain, No edema, No palpitations Gastrointestinal: No abdominal pain, No loss of appetite, No nausea, No vomiting Musculoskeletal: No back pain, No joint pain Psychiatric/Neurological: Headache; Denies Seizure Past Issjhzt-Xwflqk-Ppiwhu Hx Past Med/Social Hx: Reviewed Nursing Past Med/Soc Hx Patient Social History 2nd Hand Smoke Exposure: No Recent Foreign Travel: No Contact w/Someone Who Travel: No Recent Infectious Disease Expo: No Recent Hopitalizations: No Physical Abuse: No Sexual Abuse: No Seasonal Allergies Seasonal Allergies: No Past Medical History Surgeries: Yes (cranial) Respiratory: No Cardiac: Yes High Cholesterol, Hypertension Neurological: Yes (2013 cva) Headaches /Migraines, Paralysis, Spinal Cord Injury Genitourinary: No Gastrointestinal: No Musculoskeletal: No Endocrine: Yes Diabetes, Non-Insulin dep HEENT: No Cancer: No Psychosocial: No Integumentary: No Blood Disorders: No Family Medical History No Pertinent Family Hx Physical Exam Vital Signs Vital Signs - First Documented 12/05/19 22:50 Temp 36.3 Pulse 83 Resp 18 B/P (MAP) 128/73 (91) Pulse Ox 96 O2 Delivery Room Air Capillary Refill : Less Than 3 Seconds Height, Weight, BMI Height: 5'2.00" Weight: 213lbs. 0oz. 96.713388ee; 39.00 BMI Method:Stated General Appearance: No Apparent Distress, WD/WN Eyes: Right Eye PERRL, Right Eye EOMI HEENT: Normal ENT Inspection Neck: Normal Inspection, Non Tender, Supple Respiratory: Chest Non Tender, Lungs Clear, No Respiratory Distress Cardiovascular: Regular Rate, Rhythm, No Murmur Gastrointestinal: Non Tender, Soft Neurologic/Psychiatric: Alert, Normal Mood/Affect Skin: Normal Color, Warm/Dry; No Rash Progress/Results/Core Measures Suspected Sepsis Recent Fever Within 48 Hours: No Infection Criteria Present: None New/Unexplained Altered Menta: No Sepsis Screen: No Definite Risk SIRS Temperature: Pulse: 83 Respiratory Rate: 18 Laboratory Tests 12/05/19 23:20: White Blood Count 15.0H Blood Pressure 128 /73 Mean: 91 Laboratory Tests 12/05/19 23:20: Creatinine 0.53L, Platelet Count 319, Total Bilirubin 0.2 Results/Orders Lab Results My Orders Orders - JEFF SHIELDS DO Iv Push Evaporator Repairer Ed (12/05/19 ) Vital Signs/I&O Capillary Refill : Less Than 3 Seconds Blood Pressure Mean: 91 Departure Impression Primary Impression: Hyperglycemia Additional Impression: Type 2 diabetes mellitus Qualified Codes: E11.65 - Type 2 diabetes mellitus with hyperglycemia Disposition: 01 HOME, SELF-CARE Condition: Improved Departure-Patient Inst. Referrals: NICKY NOVOA MD (PCP/Family) Primary Care Physician Patient Instructions: Hyperglycemia, Adult (DC) JEFF SHIELDS DO Dec 05, 2019 23:14
[2019-12-05] MEDS ORDERED: NS IV 1000 ML 1,000 ML IV SCH (23:15)
[2019-12-05 23:26] LABS: BASOPHILS % (AUTO) 0 % (0-10); EOSINOPHILS % (AUTO) 0 % (0-10); HEMATOCRIT 34 % (35-52); HEMOGLOBIN 9.8 G/DL (11.5-16.0); LYMPHOCYTES # (AUTO) 1.9 X 10^3 (1.0-4.0); LYMPHOCYTES % (AUTO) 13 % (12-44); MEAN CORPUSCULAR HEMOGLOBIN 20 PG (25-34); MEAN CORPUSCULAR HGB CONC 29 G/DL (32-36); MEAN PLATELET VOLUME 10.8 FL (7.4-10.4); MONOCYTES # (AUTO) 0.2 X 10^3 (0.0-1.0); MONOCYTES % (AUTO) 2 % (0-12); NEUTROPHILS # (AUTO) 12.7 X 10^3 (1.8-7.8); NEUTROPHILS % (AUTO) 85 % (42-75); PLATELET COUNT 319 10^3/uL (130-400); RED CELL DISTRIBUTION WIDTH 17.3 % (10.0-14.5)
[2019-12-05 23:27] LABS: MEAN CORPUSCULAR VOLUME 70 FL (80-99)
--- OUTSIDE RECORDS SUMMARY | 2019-12-05 23:27 | XMS REPORT | Continuity of Care Document ---
Author Organization Unknown Address Unknown Phone Unavailable Allergies Active Description Code Type Severity Reaction Onset Reported/Identified Relationship to Patient Clinical Status Yes cefazolin [id number] Drug Allergy Unknown N/A 07/04/2018 Yes enoxaparin [id number] Drug Allerg y Unknown N/A 07/04/2018 Yes [...] 07/30/2018 MCKENNA HOFFMANN MD, Ot Z79.0 1 [employer] (CURRENT) USE OF ANTICOAGULANT 07/30/2018 MCKENNA HOFFMANN [...] UNSPECIFIED 08/06/2019 THANIA BLANCA MD, Ot Z79.82 [employer] SPECIALIST (CURRENT) USE OF ASPIRIN 08/06/2019 THANIA BLANCA [...] UNSPECIFIED 08/09/2019 THANIA BLANCA MD, Ot Z79.82 [employer] SPECIALIST (CURRENT) USE OF ASPIRIN 08/09/2019 THANIA BLANCA MD, Ot Z79.84 [employer] SPECIALIST (CURRENT) USE OF ORAL HYPOGLYC 08/09/2019 THANIA [...] 10/03/2019 NIKKO NANCE MD, Ot Z79.8 4 [employer] SPECIALIST (CURRENT) USE OF ORAL HYPOGLYC 10/03/2019 NIKKO [...] NANCE MD, Ot Z88.8 ALLERGY STATUS TO OTH DRUG/MEDS/BIOL SUB 12/05/2019 [facility], YARIEL Ot E11.9 TYPE 2 DIABETES MELLITUS WITHOUT COMPLIC 12/05/2019 [facility], YARIEL Ot E78.00 PURE HYPERCHOLESTEROLEMIA, UNSPECIFIED 12/05/2019 [facility], YARIEL Ot G43.909 MIGRAINE, UNSP, NOT INTRACTABLE, WITHOUT 12/05/2019 [facility], YARIEL Ot G83.9 PARALYTIC SYNDROME, UNSPECIFIED 12/05/2019 [facility], YARIEL Ot I10 ESSENTIAL (PRIMARY) HYPERTENSION 12/05/2019 [facility], YARIEL Ot L29.9 PRURITUS, UNSPECIFIED 12/05/2019 [facility], YARIEL Ot Z79.82 [employer] SPECIALIST (CURRENT) USE OF ASPIRIN 12/05/2019 [facility], YARIEL Ot Z79.899 OTHER [employer] SPECIALIST (CURRENT) DRUG THERAPY 12/05/2019 [facility], YARIEL Ot Z88.0 ALLERGY STATUS TO PENICILLIN [facility]/05[facility]1 ALLERGY STATUS TO OTHER ANTIBIOTIC [...] 7-25 CREATININE 0.57 mg/dL 0.50-1.10 eGFR NON-AFR. DJIBOUTIAN 114 mL/min/1.73m2 > OR = 60 eGFR [...] Status Pt. Type Provider Facility Loc./Unit Complaint [id number] 11/01/2019 10:00:00 11/01/2019 23:59: [facility] Outpatient CHRISTEL BUSTILLO [facility] [id number] 05/22/2019 11:00:00 Document Registration [id number] 01/18/2019 13:40:00 Document Registration [id number] 01/03/2019 08:15:00 Document Registration [id number] 10/06/2018 11:00:00 Document Registration [id number] 12/02/2019 20:31:00 08/01/2 020 21:21:00 DIS Outpatient YARIEL BRANHAM DO [facility] ER FS ITCHING [id number] 09/30/2019 01:27:00 02:29:00 DIS Emergency GOYO IRIZARRY, NIKKO Chavez [facility] ER FS HEADACHES [id number] 08/06/2019 20:52:00 22:17:00 DIS Emergency RIANNA IRIZARRY, THANIA Rosado [facility] ER FS CHEST PAIN [id number] 02/28/2019 19:10:00 15:24:00 DIS Inpatient MIKE IRIZARRY, GUILHERME R [facility] 4TH INTRACTABLE BACK PAIN,L EUKOCYTOSIS [id number] 11/04/2018 12:22:00 15:20:00 DIS Emergency TAHIRA WATERS DO [facility] ER FS CHEST PAIN; SOB [id number] 07/28/2018 22:09:00 01:45:00 DIS Emergency MCKENNA HOFFMANN MD [facility] ER FS PT WHOLE BODY IS ITCHIN G [id number] 07/19/2018 15:46:00 19:45:00 DIS Emergency MCKENNA HOFFMANN MD [facility] ER FS CHEST PAINS [id number] 07/04/2018 20:47:00 01:10:00 DIS Emergency ANNIE NANCE DO [facility] ER FS HEADACHE [id number] 12/05/2019 22:50:[address] Emergency EJFF SHIELDS DO [facility] ER FS HEADACHE,HIGH BLOOD SUGAR
[2019-12-05 23:44] LABS: BAND NEUTROPHILS 3 %; BASOPHILS % (MANUAL) 1 %; EOSINOPHILS % (MANUAL) 0 %; HYPOCHROMASIA MODERATE; LYMPHOCYTES % (MANUAL) 12 %; MICROCYTOSIS 2+; MONOCYTES % (MANUAL) 1 %; NEUTROPHILS % (MANUAL) 83 %; POIKILOCYTOSIS 1+
[2019-12-05 23:45] LABS: ELLIPT/OVALOCYTES SLIGHT
[2019-12-05 23:46] LABS: SODIUM 134 MMOL/L (135-145)
[2019-12-05 23:47] LABS: ALANINE AMINOTRANSFERASE 35 U/L (0-55); ALBUMIN 4.1 GM/DL (3.2-4.5); ALKALINE PHOSPHATASE 130 U/L (40-136); BILIRUBIN,TOTAL 0.2 MG/DL (0.1-1.0); BUN/CREATININE RATIO 25; CALCIUM 9.7 MG/DL (8.5-10.1); CARBON DIOXIDE 22 MMOL/L (21-32); CHLORIDE 98 MMOL/L (98-107); CREATININE SERUM 0.53 MG/DL (0.60-1.30); GFR ESTIMATED > 60; GLUCOSE 318 MG/DL (70-105); POTASSIUM 4.5 MMOL/L (3.6-5.0); TOTAL PROTEIN 7.2 GM/DL (6.4-8.2)
[2019-12-06] MEDS ORDERED: ACETAMINOPHEN 500 MG TAB (TYLENOL) PO ONE (00:15)
[2019-12-06 00:28] LABS: BILIRUBIN,URINE NEGATIVE (NEGATIVE); CLARITY,URINE CLEAR; COLOR,URINE YELLOW; GLUCOSE, URINE (UA) 3+ (NEGATIVE); KETONES,URINE NEGATIVE (NEGATIVE); NITRITE,URINE NEGATIVE (NEGATIVE); PH,URINE 5.5 (5-9); PROTEIN,URINE NEGATIVE (NEGATIVE)
[2019-12-06 00:29] LABS: BACTERIA,URINE MODERATE /HPF; LEUKOCYTE ESTERASE ,URINE NEGATIVE (NEGATIVE); RBC,URINE 0-2 /HPF
[2019-12-06] MEDS ORDERED: KETOROLAC 30 MG/ML VIAL IVP ONE (00:30)
[2019-12-06 00:54] VITALS: BP 128/75
== END 2019-12-06 00:56 | disposition home or self-care (01) ==
LOC: EDUNIT# 22:49 → ER FS 22:50
DX: E11.65 Type 2 diabetes mellitus with hyperglycemia (principal); I10 Essential (primary) hypertension; E78.00 Pure hypercholesterolemia, unspecified; Z79.82 Long term (current) use of aspirin; Z79.52 Long term (current) use of systemic steroids; Z88.0 Allergy status to penicillin; Z88.1 Allergy status to other antibiotic agents; Z88.8 Allergy status to other drugs, medicaments and biological substances
CPT/HCPCS: 36415; 80053; 81000; 82962; 85007; 85027; 87088; 96361; 96374

== ENCOUNTER 2020-02-08 17:03 | Emergency (ER) | payer MEDICARE, MEDICAID ==
[~2020-02-08] VITALS: Ht 160 cm; Wt 105.0 kg
[~2020-02-08 17:03] MED LIST changes: +OXC5T PO; -OXYC5TAB96 PO
--- NOTE | 2020-02-08 17:13 | ED Chest Pain ---
General Stated Complaint: CHEST PAINS Source: patient History of Present Illness Date Seen by Provider: Feb 08, 2020 Time Seen by Provider: 17:13 Initial Comments 44-year-old female presents with onset of chest pain just prior to arrival, approximately 30 minutes prior. 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 Denies history of heart disease or history of [place]. Patient able to answer yes or no questions, just cannot elaborate. Patient's mother allowed to come back to help w further Hx. She explained that pt hasn't felt well all week because she's on her period. Also has a headache and low back pain that are not new. Typically doesn't c/o chest pain. Allergies and Home Medications Allergies Coded Allergies: cefazolin (Verified Allergy, Unknown, 07/04/18) enoxaparin (Verified Allergy, Unknown, 07/04/18) Uncoded Allergies: PENICILLIN (Allergy, Unknown, 07/04/18) Home Medications Aspirin 325 Mg Tablet.dr, 325 MG PO DAILY, (Reported) Atorvastatin Calcium 10 Mg Tablet, 10 MG PO DAILY, (Reported) Baclofen 20 Mg Tablet, 20 MG PO QID, (Reported) Cyclobenzaprine HCl 10 Mg Tablet, 10 MG PO QID, (Reported) Docusate Sodium 100 Mg Capsule, 100 MG PO HS, (Reported) Docusate Sodium 100 Mg Capsule, 100 MG PO DAILY, (Reported) Dulaglutide 1.5 Mg/0.5 Ml Pen.injctr, 1.5 MG SC Fr, (Reported) Famotidine 40 Mg Tablet, 40 MG PO BID, (Reported) Gabapentin 300 Mg Capsule, 600 MG PO QID, (Reported) Glipizide 10 Mg Tablet, 10 MG PO BID, (Reported) Hydroxyzine HCl 50 Mg Tablet, 50 MG PO Q6H PRN for ITCHING, (Reported) Levetiracetam 100 Mg/Ml Solution, 10 ML PO BID, (Reported) Lisinopril 20 Mg Tablet, 20 MG PO DAILY, (Reported) Metoclopramide HCl 5 Mg Tablet, 5 MG PO QID, (Reported) Metoprolol Tartrate 50 Mg Tablet, 50 MG PO BID, (Reported) Montelukast Sodium 10 Mg Tablet, 10 MG PO HS, (Reported) [place]-3/Dha/Epa/Fish Oil 1 Each Capsule, 1 EACH PO DAILY, (Reported) Omeprazole 20 Mg Capsule.dr, 20 MG PO DAILY, (Reported) Oxycodone Hcl 5 Mg Tablet, 5 MG PO Q4H PRN for PAIN-SEVERE, (Reported) 1-2 TABS Potassium Chloride 10 Meq Capsule.er, 10 MEQ PO DAILY, (Reported) Sitagliptin Phosphate 100 Mg Tablet, 100 MG PO DAILY, (Reported) Patient Home Medication List Home Medication List Reviewed: Yes Review of Systems Review of Systems Constitutional: No fever, No malaise Respiratory: Denies Cough, Denies Shortness of Air Cardiovascular: See HPI, Chest Pain; Denies Edema, Denies Lightheadedness Gastrointestinal: Denies Abdominal Pain, Denies Vomiting Musculoskeletal: No back pain, No joint pain Past Xulawwv-Jdyqxz-Njkzlw Hx Past Med/Social Hx: Reviewed Nursing Past Med/Soc Hx Patient Social History 2nd Hand Smoke Exposure: No Recent Foreign Travel: No Contact w/Someone Who Travel: No Recent Hopitalizations: No Seasonal Allergies Seasonal Allergies: No Past Medical History Surgeries: Yes (cranial) Respiratory: No Cardiac: Yes High Cholesterol, Hypertension Neurological: Yes (2013 cva) Headaches /Migraines, Paralysis, Spinal Cord Injury Genitourinary: No Gastrointestinal: No Musculoskeletal: No Endocrine: Yes Diabetes, Non-Insulin dep HEENT: No Cancer: No Psychosocial: No Integumentary: No Blood Disorders: No Family Medical History No Pertinent Family Hx Physical Exam Vital Signs Vital Signs - First Documented 02/08/20 17:05 Temp 36.7 Pulse 94 Resp 24 B/P (MAP) 143/79 (100) Pulse Ox 94 O2 Delivery Room Air Capillary Refill : Height, Weight, BMI Height: 5'2.00" Weight: 213lbs. 0oz. 96.608945qo; 39.00 BMI Method:Stated General Appearance: No Apparent Distress, WD/WN HEENT: PERRL/EOMI, Normal ENT Inspection Neck: Normal Inspection, Non Tender, Supple Respiratory: Chest Non Tender, Lungs Clear, Normal Breath Sounds, No Accessory Muscle Use, No Respiratory Distress Cardiovascular: Regular Rate, Rhythm, No Edema, No Gallop, Normal Peripheral Pulses Gastrointestinal: Normal Bowel Sounds, Non Tender, Soft Extremity: Normal Capillary Refill, Normal Inspection, Non Tender, No Calf Tenderness Neurologic/Psychiatric: Alert, Aphasia (baseline), Motor Weakness ( R sided) Progress/Results/Core Measures Results/Orders Lab Results Laboratory Tests Test 02/08/20 17:20 02/08/20 19:15 Range/Units White Blood Count 10.7 4.3-11.0 10^3/uL Red Blood Count 4.72 4.35-5.85 10^6/uL Hemoglobin 9.7 L 11.5-16.0 G/DL Hematocrit 33 L 35-52 % Mean Corpuscular Volume 71 L 80-99 FL Mean Corpuscular Hemoglobin 21 L 25-34 PG Mean Corpuscular Hemoglobin Concent 29 L 32-36 G/DL Red Cell Distribution Width 18.1 H 10.0-14.5 % Platelet Count 305 130-400 10^3/uL Mean Platelet Volume 10.8 H 7.4-10.4 FL Immature Granulocyte % (Auto) 0 % Neutrophils (%) (Auto) 57 42-75 % Lymphocytes (%) (Auto) 35 12-44 % Monocytes (%) (Auto) 6 0-12 % Eosinophils (%) (Auto) 2 0-10 % Basophils (%) (Auto) 0 0-10 % Neutrophils # (Auto) 6.1 1.8-7.8 X 10^3 Lymphocytes # (Auto) 3.8 1.0-4.0 X 10^3 Monocytes # (Auto) 0.7 0.0-1.0 X 10^3 Eosinophils # (Auto) 0.2 0.0-0.3 10^3/uL Basophils # (Auto) 0.0 0.0-0.1 10^3/uL Immature Granulocyte # (Auto) 0.0 0.0-0.1 10^3/uL Sodium Level 139 135-145 MMOL/L Potassium Level 4.2 3.6-5.0 MMOL/L Chloride Level 103 98-107 MMOL/L Carbon Dioxide Level 24 21-32 MMOL/L Anion Gap 12 5-14 MMOL/L Blood Urea Nitrogen 10 7-18 MG/DL Creatinine 0.61 0.60-1.30 MG/DL Estimat Glomerular Filtration Rate > 60 BUN/Creatinine Ratio 16 Glucose Level 207 H 70-105 MG/DL Calcium Level 9.7 8.5-10.1 MG/DL Corrected Calcium 9.7 8.5-10.1 MG/DL Total Bilirubin 0.2 0.1-1.0 MG/DL Aspartate Amino Transf (AST/SGOT) 26 5-34 U/L Alanine Aminotransferase (ALT/SGPT) 32 0-55 U/L Alkaline Phosphatase 153 H 40-136 U/L Troponin I < 0.30 < 0.30 <0.30 NG/ML Total Protein 7.3 6.4-8.2 GM/DL Albumin 4.0 3.2-4.5 GM/DL My Orders Orders - ROVENSTJEFF TRAN DO Ed Iv/Invasive Line Start (02/08/20 17:17) Chest 1 View Ap/Pa Only (02/08/20 17:17) Ekg Tracing (02/08/20 17:17) Cbc With Automated Diff (02/08/20 17:17) Comprehensive Metabolic Panel (02/08/20 17:17) Troponin I Fs (02/08/20 17:17) Troponin I Fs (02/08/20 19:30) Ekg Tracing (02/08/20 19:15) Ns Iv 1000 Ml (Sodium Chloride 0.9%) (02/08/20 18:15) Nitroglycerin 0.4 Mg Btl 25's (Nitrostat (02/08/20 18:30) Medications Given in ED Current Medications Medications Dose Ordered Sig/Milly Route Start Time Stop Time Status Last Admin Dose Admin Nitroglycerin 0.4 mg NEEDED PRN SL 02/08/20 18:30 02/08/20 18:36 0.4 MG Vital Signs/I&O 02/08/20 02/08/20 17:05 17:05 Temp 36.7 Pulse 94 Resp 24 B/P (MAP) 143/79 (100) Pulse Ox 94 O2 Delivery Room Air Room Air Progress Progress Note : Progress Note Patient denies any cardiac history, denies any previous admission for chest pain and denies any previous workup outside of the ER for chest pain i.e.: Stress test/ echo or thallium test Chest pain improved, but never resolved. Negative troponins x 2 and no ECG's (x2) and compared to 08/2019. Initial ECG Impression Time: 17:10 Initial ECG Rate: 93 Initial ECG Rhythm: Normal Sinus Initial ECG Intervals: Normal Initial ECG Impression: Normal Initial ECG Comparisson: Unchanged (from 08/06/2019) Diagnostic Imaging Diagonstic Imaging: Xray Plain Films/CT/US/NM/MRI: chest Comments Date of Exam:02/08/20 CHEST 1 VIEW AP/PA ONLY INDICATION: Chest pain, unknown length. EXAMINATION: Chest, 02/08/2020. COMPARISON: 08/06/2019. FINDINGS: The heart is unremarkable. Pulmonary vasculature appears somewhat congested. There is atelectasis at the right lung base. No infiltrate, pneumothorax or effusion. IMPRESSION: Pulmonary vascular congestion with mild right base atelectasis. Dictated by: Dictated on workstation # [id number] Dict: 02/08/20 1733 Trans: 02/08/20 1748 [facility] [id number] Interpreted by: JAMES LPOEZ MD Departure Communication (Admissions) Time/Spoke to Admitting Phy: 19:[address] Barkley who accepts for OBS admission for CP, r/o ACS Impression Primary Impression: Chest pain Qualified Codes: R07.9 - Chest pain, unspecified Disposition: 02 XFER SHT-TRM HOSP Condition: Stable Admissions Decision to Admit Reason: Admit from ER (General) Decision to Admit/Date: Feb 08, 2020 Time/Decision to Admit Time: 19:30 Transfer Transfer Reason: Diversion Time Spoke to Accepting Phy: 20:05 Transfer Progress Notes no room for this pt @ [facility] on Cardiac step down, only ICU beds avail. Called Dr Franks who accepts for admission to [place] @ 1999 Method of Transfer: EMS Departure-Patient Inst. Referrals: NICKY NOVOA MD (PCP/Family) Primary Care Physician JEFF SHIELDS DO Feb 08, 2020 17:13
[2020-02-08 17:30] LABS: BASOPHILS % (AUTO) 0 % (0-10); EOSINOPHILS % (AUTO) 2 % (0-10); HEMATOCRIT 33 % (35-52); HEMOGLOBIN 9.7 G/DL (11.5-16.0); LYMPHOCYTES % (AUTO) 35 % (12-44); MEAN CORPUSCULAR HEMOGLOBIN 21 PG (25-34); MEAN CORPUSCULAR HGB CONC 29 G/DL (32-36); MEAN CORPUSCULAR VOLUME 71 FL (80-99); MEAN PLATELET VOLUME 10.8 FL (7.4-10.4); MONOCYTES % (AUTO) 6 % (0-12); NEUTROPHILS % (AUTO) 57 % (42-75); PLATELET COUNT 305 10^3/uL (130-400); WHITE BLOOD COUNT 10.7 10^3/uL (4.3-11.0)
[2020-02-08 17:31] LABS: EOSINOPHILS # (AUTO) 0.2 10^3/uL (0.0-0.3); LYMPHOCYTES # (AUTO) 3.8 X 10^3 (1.0-4.0); MONOCYTES # (AUTO) 0.7 X 10^3 (0.0-1.0); NEUTROPHILS # (AUTO) 6.1 X 10^3 (1.8-7.8)
--- NOTE | 2020-02-08 17:45 | NUR ---
Mother out to desk to report BP cuff removed by patient as painful. Pt had a BP in 170's just finish. Moved cuff to pt's right arm to cycle on next scheduled. Mother reports patient has not felt well all week. Again she reviewed she has a headache (hx of) and usual if blood sugar up, back pain (hx of) not sleeping well at night r/t, has bad week if on menses (pt nods she is on menses), but no attributing history or descriptors for CP except went to bathroom and started after coming out of bathroom (mother concerned as she opened windows today).
[2020-02-08 17:46] LABS: ALANINE AMINOTRANSFERASE 32 U/L (0-55); ALKALINE PHOSPHATASE 153 U/L (40-136); BILIRUBIN,TOTAL 0.2 MG/DL (0.1-1.0); BUN/CREATININE RATIO 16; CALCIUM 9.7 MG/DL (8.5-10.1); CARBON DIOXIDE 24 MMOL/L (21-32); CHLORIDE 103 MMOL/L (98-107); CREATININE SERUM 0.61 MG/DL (0.60-1.30); GFR ESTIMATED > 60; GLUCOSE 207 MG/DL (70-105); POTASSIUM 4.2 MMOL/L (3.6-5.0); SODIUM 139 MMOL/L (135-145); TOTAL PROTEIN 7.3 GM/DL (6.4-8.2)
--- NOTE | 2020-02-08 17:48 | Diagnostic Imaging Report ---
INDICATION: Chest pain, unknown length. EXAMINATION: Chest, 02/08/2020. COMPARISON: 08/06/2019. FINDINGS: The heart is unremarkable. Pulmonary vasculature appears somewhat congested. There is atelectasis at the right lung base. No infiltrate, pneumothorax or effusion. IMPRESSION: Pulmonary vascular congestion with mild right base atelectasis. Dictated by: Dictated on workstation # [id number]
--- NOTE | 2020-02-08 18:00 | NUR ---
Notified Dr Barragan of mother's conversation.
[2020-02-08] MEDS ORDERED: NS IV 1000 ML 1,000 ML IV SCH (18:15)
[2020-02-08] MEDS ORDERED: KETOROLAC 30 MG/ML VIAL IVP ONE (18:15)
[2020-02-08] MEDS ORDERED: NITROGLYCERIN 0.4 MG SL TABS BTL 25'S SL PRN (18:30)
--- NOTE | 2020-02-08 18:36 | NUR ---
Dr Pugh asked that NTG be given and not use Toradol on patient as order being cancelled. None has been given. NTG #1 SL given for CP "8"/10.
--- NOTE | 2020-02-08 18:45 | NUR ---
Reviewing pt's med list as mother states we should have it from prior and nurse explains no one updaes lists except till another hospital encounter. Explained we are [facility] and do not share electronic medical records with [facility] as we are a different medical company. Mother frequently pampering patient and asking her what pain level is. Nurse was told better after NTG and pain then rated "6"/10 down from "8"/10.
[2020-02-08] MEDS ORDERED: Zinc (18:56)
[2020-02-08] MEDS ORDERED: MULTIVITAMIN GUMMIES (18:56)
[2020-02-08] MEDS ORDERED: OMEG-160 PO (18:56)
--- NOTE | 2020-02-08 19:00 | NUR ---
In room re-assessing patient and preparing for repeat EKG and Troponin, mother asking patient "is the pain still getting better?" Pt nods head no and whispers worse now. Pain reported same "8"/10. Dr Barragan notified and EKG being done.
--- NOTE | 2020-02-08 19:20 | NUR ---
Report to Vonnie LAWSON. IV fluids connected but need re-started after blood draw.
[2020-02-08 20:29] VITALS: BP 126/64
== END 2020-02-08 20:29 | disposition still patient (30) ==
LOC: EDUNIT# 17:03 → ER FS 17:04
DX: R07.9 Chest pain, unspecified (principal); I10 Essential (primary) hypertension; E11.9 Type 2 diabetes mellitus without complications; E78.00 Pure hypercholesterolemia, unspecified; G43.909 Migraine, unspecified, not intractable, without status migrainosus; Z86.73 Personal history of transient ischemic attack (TIA), and cerebral infarction without residual deficits; Z88.1 Allergy status to other antibiotic agents; Z88.0 Allergy status to penicillin; Z88.8 Allergy status to other drugs, medicaments and biological substances; Z79.82 Long term (current) use of aspirin; Z79.84 Long term (current) use of oral hypoglycemic drugs
CPT/HCPCS: 36415; 71045; 80053; 84484; 85025; 93005

== ENCOUNTER 2020-11-29 19:20 | Emergency (ER) | payer MEDICARE, MEDICAID ==
[~2020-11-29] VITALS: Ht 157.5 cm; Wt 93.9 kg
[~2020-11-29 19:20] MED LIST changes: -LISI-552 PO; +LISI20TA26 PO; -MONT10TA26 PO; +MONT10TA32 PO; +MULTIVITAMIN GUMMIES; +OMEG-160 PO; +Zinc
--- NOTE | 2020-11-29 20:24 | ED General ---
General Chief Complaint: Head/Cervical Problems Stated Complaint: TROUBLE BREATHING,HEADACHE Nursing Triage Note: PT TO ROOM FS02 VIA PERSONAL W/C WITH C/O HEADACHE AND NOT BREATHING WELL X2 DAYS. FAMILY REPORTS THAT PT HAS NOT SEEN PCP FOR THIS C/O AND THAT PT HAD JUST FINISHED MENSTRUATING AND THAT SHE THOUGHT C/O WAS RELATED TO THIS. Source of Information: Patient, Family History of Present Illness Date Seen by Provider: Nov 29, 2020 Time Seen by Provider: 19:28 Initial Comments 45-year-old female presenting with her mother to the emergency department. The patient has had a prior stroke and has expressive aphasia and right-sided weakness. She has her mother assisting with communicating here in the emergency department for. She has vague complaints of possible urine infection since she was having difficulty starting her urine flow. She had just finished her menstrual period a few days ago. She has been having increased headache in the last several days but it has been responding to Tylenol. She has had some tightness in her chest at times. She has been more fatigued and easily rundown in the last several days. She has no fever or chills, nausea, vomiting, diarrhea, cough. She has had headaches in the past and this feels similar. She has just generally not felt well and was not sure what was causing it. Since she was not feeling well still tonight her brought her to the emergency department to be evaluated. Timing/Duration: 2-3 Days Associated Systoms: Chest Pain (Tightness in her chest at times); No Cough, No Diaphoresis, No Fever/Chills; Headaches (Left-sided chronic intermittent); No Loss of Appetite; Malaise; No Nausea/Vomiting, No Rash, No Seizure, No Shortness of Air, No Syncope Allergies and Home Medications Allergies Coded Allergies: cefazolin (Verified Allergy, Unknown, 07/04/18) enoxaparin (Verified Allergy, Unknown, 07/04/18) Uncoded Allergies: PENICILLIN (Allergy, Unknown, 07/04/18) Home Medications Aspirin 325 Mg Tablet.dr, 325 MG PO DAILY, (Reported) Atorvastatin Calcium 10 Mg Tablet, 10 MG PO DAILY, (Reported) Baclofen 20 Mg Tablet, 20 MG PO QID, (Reported) Cyclobenzaprine HCl 10 Mg Tablet, 10 MG PO QID, (Reported) Docusate Sodium 100 Mg Capsule, 100 MG PO HS, (Reported) Docusate Sodium 100 Mg Capsule, 100 MG PO DAILY, (Reported) Dulaglutide 1.5 Mg/0.5 Ml Pen.injctr, 1.5 MG SC Fr, (Reported) Famotidine 40 Mg Tablet, 40 MG PO BID, (Reported) Gabapentin 300 Mg Capsule, 600 MG PO QID, (Reported) Glipizide 10 Mg Tablet, 10 MG PO BID, (Reported) Hydroxyzine HCl 50 Mg Tablet, 50 MG PO Q6H PRN for ITCHING, (Reported) Levetiracetam 100 Mg/Ml Solution, 10 ML PO BID, (Reported) Lisinopril 20 Mg Tablet, 20 MG PO DAILY, (Reported) Metoclopramide HCl 5 Mg Tablet, 5 MG PO QID, (Reported) Metoprolol Tartrate 50 Mg Tablet, 50 MG PO BID, (Reported) Montelukast Sodium 10 Mg Tablet, 10 MG PO HS, (Reported) Melvin-3/Dha/Epa/Fish Oil 1 Each Capsule, 1 EACH PO DAILY, (Reported) Omeprazole 20 Mg Capsule.dr, 20 MG PO DAILY, (Reported) Oxycodone Hcl 5 Mg Tablet, 5 MG PO Q4H PRN for PAIN-SEVERE, (Reported) 1-2 TABS Potassium Chloride 10 Meq Capsule.er, 10 MEQ PO DAILY, (Reported) Sitagliptin Phosphate 100 Mg Tablet, 100 MG PO DAILY, (Reported) Patient Home Medication List Home Medication List Reviewed: Yes Review of Systems Review of Systems Constitutional: No chills, No fever; malaise EENTM: no symptoms reported Respiratory: see HPI Cardiovascular: see HPI Gastrointestinal: No diarrhea, No nausea, No vomiting Genitourinary: see HPI, hesitancy Musculoskeletal: back pain (Chronic) Skin: no symptoms reported Psychiatric/Neurological: Anxiety, Headache (Left-sided chronic intermittent headache) Past Cyjzent-Jjncwi-Wkycxs Hx Patient Social History Tobacco Use?: No Smoking Status: Never a Smoker Substance use?: No Alcohol Use?: No Pt feels they are or have been: No Immunizations Up To Date First/Initial COVID19 Vaccinat: 07/16/20 Second COVID19 Vaccination Solomon: 08/13/20 COVID19 Vaccine Half Section Ironer: SARITA Seasonal Allergies Seasonal Allergies: No Past Medical History Surgeries: Yes (cranial) Respiratory: No Cardiac: Yes High Cholesterol, Hypertension Neurological: Yes (2013 cva) Headaches /Migraines, Paralysis, Spinal Cord Injury Genitourinary: No Gastrointestinal: No Musculoskeletal: No Endocrine: Yes Diabetes, Non-Insulin dep HEENT: No Cancer: No Psychosocial: No Integumentary: No Blood Disorders: No Family Medical History No Pertinent Family Hx Physical Exam Vital Signs Vital Signs - First Documented 11/29/20 11/29/20 19:27 22:24 Temp 36.4 Pulse 107 Resp 17 B/P (MAP) 122/74 (90) Pulse Ox 95 O2 Delivery Room Air Capillary Refill : Less Than 3 Seconds Height, Weight, BMI Height: 5'2.00" Weight: 213lbs. 0oz. 96.367090on; 37.00 BMI Method:Stated General Appearance: Anxious, Chronically ill, Obese, Other (Sitting in wheelchair) HEENT: Pharynx Normal Neck: Full Range of Motion, Supple Respiratory: Chest Non Tender, Lungs Clear, Normal Breath Sounds, No Accessory Muscle Use, No Respiratory Distress Cardiovascular: Regular Rate, Rhythm (Heart rate of 94 on exam but has a heart rate of 107 when obtained vital signs with the nurse), Normal Peripheral Pulses Gastrointestinal: Normal Bowel Sounds, No Pulsatile Mass, Non Tender, Soft Rectal: Deferred Extremity: Normal Capillary Refill, Other (Brace on right lower extremity due to right sided weakness from old stroke) Neurologic/Psychiatric: Alert Skin: Normal Color, Warm/Dry Progress/Results/Core Measures Suspected Sepsis SIRS Temperature: Pulse: 107 Respiratory Rate: 17 Laboratory Tests 11/29/20 21:21: White Blood Count 10.0 Blood Pressure 122 /74 Mean: 90 Laboratory Tests 11/29/20 21:21: Creatinine 0.69, Platelet Count 325, Total Bilirubin 0.2 Results/Orders Lab Results Laboratory Tests Test 11/29/20 20:45 11/29/20 21:21 Range/Units Urine Color YELLOW Urine Clarity CLEAR Urine pH 6.0 5-9 Urine Specific [place] 1.010 L 1.016-1.022 Urine Protein NEGATIVE NEGATIVE Urine Glucose (UA) 2+ H NEGATIVE Urine Ketones NEGATIVE NEGATIVE Urine Nitrite NEGATIVE NEGATIVE Urine Bilirubin NEGATIVE NEGATIVE Urine Urobilinogen 0.2 < = 1.0 MG/DL Urine Leukocyte Esterase NEGATIVE NEGATIVE Urine RBC (Auto) NEGATIVE NEGATIVE Urine RBC NONE /HPF Urine WBC 2-5 /HPF Urine Squamous Epithelial Cells 2-5 /HPF Urine Crystals NONE /LPF Urine Bacteria TRACE /HPF Urine Casts NONE /LPF Urine Mucus NEGATIVE /LPF Urine Culture Indicated NO White Blood Count 10.0 4.3-11.0 10^3/uL Red Blood Count 4.99 4.35-5.85 10^6/uL Hemoglobin 10.2 L 11.5-16.0 G/DL Hematocrit 36 35-52 % Mean Corpuscular Volume 71 L 80-99 FL Mean Corpuscular Hemoglobin 20 L 25-34 PG Mean Corpuscular Hemoglobin Concent 29 L 32-36 G/DL Red Cell Distribution Width 18.2 H 10.0-14.5 % Platelet Count 325 130-400 10^3/uL Mean Platelet Volume 11.4 H 7.4-10.4 FL Neutrophils (%) (Auto) 53 42-75 % Lymphocytes (%) (Auto) 38 12-44 % Monocytes (%) (Auto) 6 0-12 % Eosinophils (%) (Auto) 2 0-10 % Basophils (%) (Auto) 0 0-10 % Neutrophils # (Auto) 5.3 1.8-7.8 X 10^3 Lymphocytes # (Auto) 3.8 1.0-4.0 X 10^3 Monocytes # (Auto) 0.6 0.0-1.0 X 10^3 Eosinophils # (Auto) 0.2 0.0-0.3 10^3/uL Basophils # (Auto) 0.0 0.0-0.1 10^3/uL Sodium Level 136 135-145 MMOL/L Potassium Level 3.8 3.6-5.0 MMOL/L Chloride Level 101 98-107 MMOL/L Carbon Dioxide Level 24 21-32 MMOL/L Anion Gap 11 5-14 MMOL/L Blood Urea Nitrogen 11 7-18 MG/DL Creatinine 0.69 0.60-1.30 MG/DL Estimat Glomerular Filtration Rate 92 BUN/Creatinine Ratio 16 Glucose Level 187 H 70-105 MG/DL Calcium Level 9.6 8.5-10.1 MG/DL Corrected Calcium 9.4 8.5-10.1 MG/DL Total Bilirubin 0.2 0.1-1.0 MG/DL Aspartate Amino Transf (AST/SGOT) 15 5-34 U/L Alanine Aminotransferase (ALT/SGPT) 22 0-55 U/L Alkaline Phosphatase 164 H 40-136 U/L Total Protein 7.6 6.4-8.2 GM/DL Albumin 4.2 3.2-4.5 GM/DL My Orders Orders - MCKENNA HOFFMANN MD Ua Culture If Indicated (11/29/20 20:37) Acetaminophen Tablet (Tylenol Tablet) (11/29/20 20:37) Comprehensive Metabolic Panel (11/29/20 21:15) Ed Iv/Invasive Line Start (11/29/20 21:15) Cbc With Automated Diff (11/29/20 21:15) Chest 1 View Ap/Pa Only (11/29/20 21:15) Ct Head Wo (11/29/20 21:15) Ns Iv 1000 Ml (Sodium Chloride 0.9%) (11/29/20 21:15) Ketorolac Injection (Toradol Injection) (11/29/20 21:15) Vital Signs/I&O 11/29/20 11/29/20 19:27 22:24 Temp 36.4 Pulse 107 83 Resp 17 18 B/P (MAP) 122/74 (90) 137/76 Pulse Ox 95 O2 Delivery Room Air Room Air 11/30/20 00:00 Intake Total 1000 ml Balance 1000 ml Capillary Refill : Less Than 3 Seconds Blood Pressure Mean: 90 Progress Note #1: Progress Note With patient's vague complaints but thinking that she might have a urine infection we will start with obtaining a urinalysis. Advised if this did not show any signs of infection that the next it would be obtaining blood work and doing further testing. Progress Note #2: Progress Note Urinalysis did not demonstrate any acute signs of infection. She did have glucose in her urine. Patient was starting to hyperventilate in the room and complaining of having hot flash when I was explaining that her urine did not show any sign of infection and the next that was going to be obtaining IV and blood work. She nodded her head and said yes when asked if she wanted to proceed with testing. I did advise both her mother and patient that I may not find any specific reason for her to not feel well. Patient still wanted to proceed with testing. Will give IVF bolus for hydration, Tylenol for headache, Toradol for headache. Progress Note #3: Progress Note Labs are stable and do show anemia with Hgb 10.2. Chemistry with hyperglycemia of 172. CXR on my review of 1 view film did not demonstrate any acute infiltrate or effusion. She may have mild pulmonary vascular congestion similar to February 2020. Diagnostic Imaging Diagonstic Imaging: Xray Plain Films/CT/US/NM/MRI: chest Comments On my review of her 1 view chest x-ray she had no acute infiltrate or effusion. She had mild pulmonary vascular congestion similar to February 2020 imaging [facility], [place] NAME: [facility] REC#: [id number] PT STATUS: REG ER : 1975 PHYSICIAN: MCKENNA HOFFMANN MD ADMIT DATE: 11/29/20/ER FS Signed Date of Exam:11/29/20 CHEST 1 VIEW AP/PA ONLY INDICATION: Chest tightness. COMPARISON: 02/08/2020. TECHNIQUE: Single radiograph of the chest dated November 29, 2020. FINDINGS: The cardiac silhouette is within normal limits in size. Minimal central pulmonary vascular congestion. The lungs, however, appear clear of focal pulmonary opacity. No pleural effusion. No pneumothorax. No acute osseous abnormality. IMPRESSION: Minimal central pulmonary vascular congestion without interstitial edema or pleural effusion. Dictated by: Dictated on workstation # [id number] Dict: 11/29/202201 Trans: 11/29/202220 [facility] [id number] Interpreted by: REFUGIO THORNE MD Electronically signed by: REFUGIO THORNE MD 11/29/202220 Reviewed: Reviewed by Ne Diagonstic Imaging: CT Plain Films/CT/US/NM/MRI: head Comments [facility] [place], [place] NAME: LLOYD OBRIEN [employer] [facility] REC#: [id number] PT STATUS: REG ER : 1975 PHYSICIAN: MCKENNA HOFFMANN MD ADMIT DATE: 11/29/20/ER FS Draft Date of Exam:11/29/20 CT HEAD WO PROCEDURE: CT head without contrast. TECHNIQUE: Multiple contiguous axial images were obtained through the brain without the use of intravenous contrast. Auto Exposure Controls were utilized during the CT exam to meet ALARA standards for radiation dose reduction. INDICATION: Left-sided headache COMPARISON: 09/30/2019 FINDINGS: Large region of encephalomalacia is again noted within the distribution of the left middle cerebral artery, related to remote infarction. This appears similar to the prior examination. This is associated with ex vacuo dilatation of the left lateral ventricle. Additionally, associated large left-sided craniotomy is again seen. Mild atrophy. No intracranial hemorrhage. No intracranial mass, mass effect, midline shift, obstructive hydrocephalus, or suspicious extra-axial fluid collection. No definite CT evidence of an acute ischemic infarction. The orbits are unremarkable. The visualized paranasal sinuses are clear. Besides postsurgical changes, calvarium and extracalvarial soft tissues are unremarkable. IMPRESSION: No acute intracranial abnormality. Extensive encephalomalacia within the region of the left middle cerebral artery with associated overlying postsurgical changes. Dictated on workstation # [id number] Dict: 11/29/202150 Trans: 11/29/202155 [facility] [id number] Interpreted by: REFUGIO THORNE MD Electronically signed by: Reviewed: Reviewed by Me Departure Impression Primary Impression: Malaise and fatigue Additional Impressions: Left-sided headache Urinary hesitancy Hyperglycemia due to diabetes mellitus Disposition: HOME, SELF-CARE Condition: Stable Departure-Patient Inst. Decision time for Depature: 22:10 Referrals: CHRISTEL HUI APRN (PCP/Family) Primary Care Physician Patient Instructions: High Blood Sugar, Adult ED, Fatigue ED, Headache, Adult ED Add. Discharge Instructions: Continue on your regular medicines and follow up with clinic for continued symptoms/concerns. Try to stay well hydrated and keep drinking plenty of fluids. All discharge instructions reviewed with patient and/or family. Voiced understanding. MCKENNA HOFFMANN MD Nov 29, 2020 20:24
[2020-11-29] MEDS ORDERED: ACETAMINOPHEN 500 MG TAB (TYLENOL) PO STA (20:37)
[2020-11-29 20:56] LABS: BILIRUBIN,URINE NEGATIVE (NEGATIVE); CLARITY,URINE CLEAR; COLOR,URINE YELLOW; GLUCOSE, URINE (UA) 2+ (NEGATIVE); KETONES,URINE NEGATIVE (NEGATIVE); LEUKOCYTE ESTERASE ,URINE NEGATIVE (NEGATIVE); NITRITE,URINE NEGATIVE (NEGATIVE); PROTEIN,URINE NEGATIVE (NEGATIVE)
[2020-11-29 20:57] LABS: BACTERIA,URINE TRACE /HPF
[2020-11-29] MEDS ORDERED: KETOROLAC 30 MG/ML VIAL IVP STA (21:15)
[2020-11-29] MEDS ORDERED: NS IV 1000 ML 1,000 ML IV STA (21:15)
[2020-11-29 21:36] LABS: BASOPHILS % (AUTO) 0 % (0-10); EOSINOPHILS # (AUTO) 0.2 10^3/uL (0.0-0.3); EOSINOPHILS % (AUTO) 2 % (0-10); HEMATOCRIT 36 % (35-52); HEMOGLOBIN 10.2 G/DL (11.5-16.0); LYMPHOCYTES # (AUTO) 3.8 X 10^3 (1.0-4.0); LYMPHOCYTES % (AUTO) 38 % (12-44); MEAN CORPUSCULAR HEMOGLOBIN 20 PG (25-34); MEAN CORPUSCULAR HGB CONC 29 G/DL (32-36); MEAN CORPUSCULAR VOLUME 71 FL (80-99); MEAN PLATELET VOLUME 11.4 FL (7.4-10.4); MONOCYTES # (AUTO) 0.6 X 10^3 (0.0-1.0); MONOCYTES % (AUTO) 6 % (0-12); NEUTROPHILS # (AUTO) 5.3 X 10^3 (1.8-7.8); NEUTROPHILS % (AUTO) 53 % (42-75); PLATELET COUNT 325 10^3/uL (130-400)
[2020-11-29 21:48] LABS: ALBUMIN 4.2 GM/DL (3.2-4.5); BILIRUBIN,TOTAL 0.2 MG/DL (0.1-1.0); CALCIUM 9.6 MG/DL (8.5-10.1); CREATININE SERUM 0.69 MG/DL (0.60-1.30); POTASSIUM 3.8 MMOL/L (3.6-5.0); TOTAL PROTEIN 7.6 GM/DL (6.4-8.2)
--- NOTE | 2020-11-29 21:57 | Diagnostic Imaging Report ---
PROCEDURE: CT head without contrast. TECHNIQUE: Multiple contiguous axial images were obtained through the brain without the use of intravenous contrast. Auto Exposure Controls were utilized during the CT exam to meet ALARA standards for radiation dose reduction. INDICATION: Left-sided headache COMPARISON: 09/30/2019 FINDINGS: Large region of encephalomalacia is again noted within the distribution of the left middle cerebral artery, related to remote infarction. This appears similar to the prior examination. This is associated with ex vacuo dilatation of the left lateral ventricle. Additionally, associated large left-sided craniotomy is again seen. Mild atrophy. No intracranial hemorrhage. No intracranial mass, mass effect, midline shift, obstructive hydrocephalus, or suspicious extra-axial fluid collection. No definite CT evidence of an acute ischemic infarction. The orbits are unremarkable. The visualized paranasal sinuses are clear. Besides postsurgical changes, calvarium and extracalvarial soft tissues are unremarkable. IMPRESSION: No acute intracranial abnormality. Extensive encephalomalacia within the region of the left middle cerebral artery with associated overlying postsurgical changes. Dictated by: Dictated on workstation # [id number]
--- NOTE | 2020-11-29 22:13 | Diagnostic Imaging Report ---
INDICATION: Chest tightness. COMPARISON: 02/08/2020. TECHNIQUE: Single radiograph of the chest dated November 29, 2020. FINDINGS: The cardiac silhouette is within normal limits in size. Minimal central pulmonary vascular congestion. The lungs, however, appear clear of focal pulmonary opacity. No pleural effusion. No pneumothorax. No acute osseous abnormality. IMPRESSION: Minimal central pulmonary vascular congestion without interstitial edema or pleural effusion. Dictated by: Dictated on workstation # [id number]
[2020-11-29 22:24] VITALS: BP 137/76
== END 2020-11-29 22:24 | disposition home or self-care (01) ==
LOC: EDUNIT# 19:20 → ER FS 19:21
DX: R53.81 Other malaise (principal); R53.83 Other fatigue; R51.9 Headache, unspecified; R39.11 Hesitancy of micturition; E11.65 Type 2 diabetes mellitus with hyperglycemia; E66.9 Obesity, unspecified; I10 Essential (primary) hypertension; E78.00 Pure hypercholesterolemia, unspecified; Z68.37 Body mass index [BMI] 37.0-37.9, adult; Z79.899 Other long term (current) drug therapy; Z79.82 Long term (current) use of aspirin
CPT/HCPCS: 36415; 70450; 71045; 80053; 81000; 85025

== ENCOUNTER 2021-06-14 15:20 | Emergency (ER) | payer MEDICARE, MEDICAID ==
[~2021-06-14 15:20] MED LIST changes: +CYCL10TA25 PO; -CYCL10TA9 PO; +MONT-40 PO; -MONT10TA32 PO
[2021-06-14 15:38] LABS: BASOPHILS # (AUTO) 0.1 10^3/uL (0.0-0.1); BASOPHILS % (AUTO) 1 % (0-10); EOSINOPHILS # (AUTO) 0.2 10^3/uL (0.0-0.3); EOSINOPHILS % (AUTO) 3 % (0-10); HEMATOCRIT 39 % (35-52); HEMOGLOBIN 11.2 g/dL (11.5-16.0); LYMPHOCYTES % (AUTO) 45 % (12-44); MEAN CORPUSCULAR HEMOGLOBIN 23 pg (25-34); MEAN CORPUSCULAR HGB CONC 29 g/dL (32-36); MEAN CORPUSCULAR VOLUME 79 fL (80-99); MEAN PLATELET VOLUME 10.9 fL (9.0-12.2); MONOCYTES # (AUTO) 0.4 X 10^3 (0.0-1.0); MONOCYTES % (AUTO) 5 % (0-12); NEUTROPHILS # (AUTO) 4.2 X 10^3 (1.8-7.8); NEUTROPHILS % (AUTO) 47 % (42-75); PLATELET COUNT 257 10^3/uL (130-400); WHITE BLOOD COUNT 8.9 10^3/uL (4.3-11.0)
[2021-06-14] MEDS ORDERED: morphine INJ 10 MG/ML 1ML (SYR OR VIAL) IVP STA (15:42)
[2021-06-14] MEDS ORDERED: KETOROLAC 30 MG/ML VIAL IVP ONE (15:45)
[2021-06-14] MEDS ORDERED: PANTOPRAZOLE 40 MG (PROTONIX) VIAL IV ONE (15:45)
[2021-06-14 15:49] LABS: INR 0.9 (0.8-1.4); PROTHROMBIN TIME PATIENT 12.9 SEC (12.2-14.7)
--- NOTE | 2021-06-14 15:50 | ED Chest Pain ---
General Chief Complaint: Chest Pain Stated Complaint: CHEST PAIN Nursing Triage Note: PT TOLD HER MOTHER SHE WAS HAVING SOME CHEST PAIN. MOM REPORTS SHE FELT HOT AND COLD ALL DAY. PT IS A POOR HISTORIAN DUE TO CONGITIVE ABILTY FROM A STROKE. Source: patient, mother Exam Limitations: clinical condition (expressive aphasia from prior stroke) History of Present Illness Date Seen by Provider: Jun 14, 2021 Time Seen by Provider: 15:27 Initial Comments 46-year-old female presenting with complaints of chest pain that is sharp in nature. She was brought in by her mother who is her primary caregiver. She has had a prior stroke and has residual weakness to her right side with expressive aphasia. She also has a history of reflux and prior chest pain work-up through the emergency department showing no acute coronary syndrome. According to mom the patient has felt hot and cold throughout the day. She has not had a cough or congestion. She has had no change in her bowels. There is been no difficulty with urination. Timing/Duration: 4-6 hours Severity/Quality: moderate, sharp Location: central Activities at Onset: none Prior CP/Workup: non-cardiac (Multiple emergency department work-ups for chest pain that have been noncardiac) ASA po DRAPERY AND UPHOLSTERY MEASURER: No NTG SL DRAPERY AND UPHOLSTERY MEASURER: No Associated Symptoms: No abdominal pain, No back pain, No diaphoresis, No dizziness, No edema, No fatigue, No fever/chills; headache (Chronic), heartburn (Chronic); No nausea/vomiting, No rash, No shortness of breath, No swelling/lump in chest, No syncope Allergies and Home Medications Allergies Coded Allergies: cefazolin (Verified Allergy, Unknown, 07/04/18) enoxaparin (Verified Allergy, Unknown, 07/04/18) Uncoded Allergies: PENICILLIN (Allergy, Unknown, 07/04/18) Patient Home Medication List Home Medication List Reviewed: Yes Aspirin (Aspirin EC) 325 Mg Tablet.dr, 325 MG PO DAILY, (Reported) Entered as Reported by: JANESSA LOMBARDI on 03/01/19 1025 Atorvastatin Calcium (Atorvastatin Calcium) 10 Mg Tablet, 10 MG PO DAILY, (Reported) Entered as Reported by: JANESSA LOMBARDI on 03/01/19 1025 Baclofen (Baclofen) 20 Mg Tablet, 20 MG PO QID, (Reported) Entered as Reported by: JANESSA LOMBARDI on 03/01/19 1025 Cyclobenzaprine HCl (Cyclobenzaprine HCl) 10 Mg Tablet, 10 MG PO QID, (Reported) Entered as Reported by: JANESSA LOMBARDI on 03/01/19 102 Docusate Sodium (Colace) 100 Mg Capsule, 100 MG PO HS, (Reported) Entered as Reported by: JANESSA LOMBARDI on 03/01/19 102 Docusate Sodium (Colace) 100 Mg Capsule, 100 MG PO DAILY, (Reported) Entered as Reported by: JANESSA LOMBARDI on 03/01/19 102 Dulaglutide (Trulicity) 1.5 Mg/0.5 Ml Pen.injctr, 1.5 MG SC Fr, (Reported) Entered as Reported by: JANESSA LOMBARDI on 03/01/19 102 Famotidine (Famotidine) 40 Mg Tablet, 40 MG PO BID, (Reported) Entered as Reported by: JANESSA LOMBARDI on 03/01/19 102 Gabapentin (Gabapentin) 300 Mg Capsule, 600 MG PO QID, (Reported) Entered as Reported by: JANESSA LOMBARDI on 03/01/19 102 Glipizide (Glipizide) 10 Mg Tablet, 10 MG PO BID, (Reported) Entered as Reported by: JANESSA LOMBARDI on 03/01/19 102 Hydroxyzine HCl (Hydroxyzine HCl) 50 Mg Tablet, 50 MG PO Q6H PRN for ITCHING, (Reported) Entered as Reported by: JANESSA LOMBARDI on 03/01/19 102 Levetiracetam (Levetiracetam) 100 Mg/Ml Solution, 10 ML PO BID, (Reported) Entered as Reported by: JANESSA LOMBARDI on 03/01/19 102 Lisinopril (Lisinopril) 20 Mg Tablet, 20 MG PO DAILY, (Reported) Entered as Reported by: JANESSA LOMBARDI on 03/01/19 102 Metoclopramide HCl (Metoclopramide HCl) 5 Mg Tablet, 5 MG PO QID, (Reported) Entered as Reported by: JANESSA LOMBARDI on 03/01/19 102 Metoprolol Tartrate (Metoprolol Tartrate) 50 Mg Tablet, 50 MG PO BID, (Reported) Entered as Reported by: JANESSA LOMBARDI on 03/01/19 1025 Montelukast Sodium (Montelukast Sodium) 10 Mg Tablet, 10 MG PO HS, (Reported) Entered as Reported by: JANESSA LOMBARDI on 03/01/19 102 [place]-3/Dha/Epa/Fish Oil (Fish Oil 1,000 mg Softgel) 1 Each Capsule, 1 EACH PO DAILY, (Reported) Entered as Reported by: FÉLIX SOLARES on 02/08/201855 Omeprazole (Omeprazole) 20 Mg Capsule.dr, 20 MG PO DAILY, (Reported) Entered as Reported by: JANESSA LOMBARDI on 03/01/19 102 Oxycodone Hcl (Oxyir Tablet) 5 Mg Tablet, 5 MG PO Q4H PRN for PAIN-SEVERE, (Reported) Entered as Reported by: JANESSA LOMBARDI on 03/01/19 102 Potassium Chloride (Potassium Chloride) 10 Meq Capsule.er, 10 MEQ PO DAILY, (Reported) Entered as Reported by: JANESSA LOMBARDI on 03/01/19 102 Sitagliptin Phosphate (Januvia) 100 Mg Tablet, 100 MG PO DAILY, (Reported) Entered as Reported by: JANESSA LOMBARDI on 03/01/19 102 [Multivitamin gummies] , (Reported) Entered as Reported by: FÉLIX SOLARES on 02/08/201855 [Zinc] , (Reported) Entered as Reported by: FÉLIX SOLARES on 02/08/201855 Review of Systems Review of Systems Constitutional: chills (Subjective), fever (Subjective), malaise EENTM: No Symptoms Reported Respiratory: No Symptoms Reported Cardiovascular: See HPI Gastrointestinal: No Symptoms Reported Genitourinary: No Symptoms Reported Musculoskeletal: no symptoms reported Skin: no symptoms reported Psychiatric/Neurological: Anxiety Past Nicgszf-Qcajkd-Wlgkog Hx Patient Social History Tobacco Use?: No Use of E-Cig and/or Vaping dev: No Substance use?: No Alcohol Use?: No Pt feels they are or have been: No Immunizations Up To Date First/Initial COVID19 Vaccinat: 07/16/20 Second COVID19 Vaccination Solomon: 08/13/20 Third COVID19 Vaccination Date: 07/16/20 Seasonal Allergies Seasonal Allergies: No Past Medical History Surgery/Hospitalization HX: Stroke with residual right sided weakness and expressive aphasia Surgeries: Yes (cranial) Respiratory: No Cardiac: Yes High Cholesterol, Hypertension Neurological: Yes (2013 cva) Headaches /Migraines, Paralysis, Spinal Cord Injury Genitourinary: No Gastrointestinal: No Musculoskeletal: No Endocrine: Yes Diabetes, Non-Insulin dep HEENT: No Cancer: No Psychosocial: No Integumentary: No Blood Disorders: No Family Medical History No Pertinent Family Hx Physical Exam Vital Signs Vital Signs - First Documented 06/14/21 15:38 Temp 36.2 Pulse 79 Resp 16 B/P (MAP) 127/73 (91) Pulse Ox 98 O2 Delivery Room Air Capillary Refill : Less Than 3 Seconds Height, Weight, BMI Height: 5'2.00" Weight: 213lbs. 0oz. [id number]; 37.00 BMI Method:Stated General Appearance: Anxious, Obese HEENT: PERRL/EOMI, Pharynx Normal Neck: Non Tender, Supple Respiratory: Chest Non Tender, Lungs Clear, Normal Breath Sounds, No Accessory Muscle Use, No Respiratory Distress Cardiovascular: Regular Rate, Rhythm, Normal Peripheral Pulses Gastrointestinal: Normal Bowel Sounds, No Pulsatile Mass, Non Tender, Soft Extremity: Normal Capillary Refill Neurologic/Psychiatric: Alert Skin: Normal Color, Warm/Dry Progress/Results/Core Measures Results/Orders Lab Results Laboratory Tests Test 06/14/21 15:29 06/14/21 16:30 06/14/21 17:40 Range/Units White Blood Count 8.9 4.3-11.0 10^3/uL Red Blood Count 4.95 3.80-5.11 10^6/uL Hemoglobin 11.2 L 11.5-16.0 g/dL Hematocrit 39 35-52 % Mean Corpuscular Volume 79 L 80-99 fL Mean Corpuscular Hemoglobin 23 L 25-34 pg Mean Corpuscular Hemoglobin Concent 29 L 32-36 g/dL Red Cell Distribution Width 23.0 H 10.0-14.5 % Platelet Count 257 130-400 10^3/uL Mean Platelet Volume 10.9 9.0-12.2 fL Immature Granulocyte % (Auto) 0 % Neutrophils (%) (Auto) 47 42-75 % Lymphocytes (%) (Auto) 45 H 12-44 % Monocytes (%) (Auto) 5 0-12 % Eosinophils (%) (Auto) 3 0-10 % Basophils (%) (Auto) 1 0-10 % Neutrophils # (Auto) 4.2 1.8-7.8 X 10^3 Lymphocytes # (Auto) 4.0 1.0-4.0 X 10^3 Monocytes # (Auto) 0.4 0.0-1.0 X 10^3 Eosinophils # (Auto) 0.2 0.0-0.3 10^3/uL Basophils # (Auto) 0.1 0.0-0.1 10^3/uL Immature Granulocyte # (Auto) 0.0 0.0-0.1 10^3/uL Prothrombin Time 12.9 12.2-14.7 SEC INR Comment 0.9 0.8-1.4 Activated Partial Thromboplast Time 28 24-35 SEC Sodium Level 136 135-145 MMOL/L Potassium Level 4.3 3.6-5.0 MMOL/L Chloride Level 100 98-107 MMOL/L Carbon Dioxide Level 20 L 21-32 MMOL/L Anion Gap 16 H 5-14 MMOL/L Blood Urea Nitrogen 9 7-18 MG/DL Creatinine 0.52 L 0.60-1.30 MG/DL Estimat Glomerular Filtration Rate 117 BUN/Creatinine Ratio 17 Glucose Level 215 H 70-105 MG/DL Calcium Level 9.2 8.5-10.1 MG/DL Corrected Calcium 9.3 8.5-10.1 MG/DL Magnesium Level 1.8 1.6-2.4 MG/DL Total Bilirubin < 0.2 0.1-1.0 MG/DL Aspartate Amino Transf (AST/SGOT) 29 5-34 U/L Alanine Aminotransferase (ALT/SGPT) 22 0-55 U/L Alkaline Phosphatase 150 H 40-136 U/L Myoglobin < 21.0 10.0-92.0 NG/ML Troponin I < 0.30 < 0.30 <0.30 NG/ML Pro-B-Type Natriuretic Peptide < 5.0 <75.0 PG/ML Total Protein 7.3 6.4-8.2 GM/DL Albumin 3.9 3.2-4.5 GM/DL Lipase 34 8-78 U/L Urine Color YELLOW Urine Clarity CLEAR Urine pH 6.0 5-9 Urine Specific [place] <=1.005 1.016-1.022 Urine Protein NEGATIVE NEGATIVE Urine Glucose (UA) TRACE H NEGATIVE Urine Ketones NEGATIVE NEGATIVE Urine Nitrite NEGATIVE NEGATIVE Urine Bilirubin NEGATIVE NEGATIVE Urine Urobilinogen 0.2 < = 1.0 MG/DL Urine Leukocyte Esterase NEGATIVE NEGATIVE Urine RBC (Auto) NEGATIVE NEGATIVE Urine RBC 0-2 /HPF Urine WBC NONE /HPF Urine Crystals NONE /LPF Urine Bacteria NEGATIVE /HPF Urine Casts NONE /LPF Urine Mucus NEGATIVE /LPF Urine Culture Indicated NO My Orders Orders - MCKENNA HOFFMANN MD Cbc With Automated Diff (06/14/21 15:33) Magnesium (06/14/21 15:33) Chest 1 View Ap/Pa Only (06/14/21 15:33) Ekg Tracing (06/14/21 15:33) Comprehensive Metabolic Panel (06/14/21 15:33) Myoglobin Serum (06/14/21 15:33) Protime With Inr (06/14/21 15:33) Partial Thromboplastin Time (06/14/21 15:33) O2 (06/14/21 15:33) Monitor-Rhythm Ecg Trace Only (06/14/21 15:33) Ed Iv/Invasive Line Start (06/14/21 15:33) Lipase (06/14/21 15:33) Troponin I Fs (06/14/21 15:33) Probnp Fs (06/14/21 15:33) Pantoprazole Injection (Protonix Injecti (06/14/21 15:45) Ketorolac Injection (Toradol Injection) (06/14/21 15:45) Ua Culture If Indicated (06/14/21 15:34) Morphine Injection (Morphine Injection (06/14/21 15:42) Fentanyl Inj (Sublimaze Injection) (06/14/21 16:32) Diphenhydramine Injection (Benadryl Inje (06/14/21 17:00) Troponin I Fs (06/14/21 17:40) Medications Given in ED Current Medications Medications Dose Ordered Sig/Milly Route Start Time Stop Time Status Last Admin Dose Admin Ketorolac Tromethamine 30 mg ONCE ONCE IVP 06/14/21 15:45 06/14/21 15:46 DC 06/14/21 15:50 30 MG Pantoprazole 40 mg ONCE ONCE IV 06/14/21 15:45 06/14/21 15:46 DC 06/14/21 15:52 40 MG Vital Signs/I&O 06/14/21 06/14/21 15:38 18:01 Temp 36.2 36.2 Pulse 79 84 Resp 16 16 B/P (MAP) 127/73 (91) 128/68 Pulse Ox 98 99 O2 Delivery Room Air Room Air Blood Pressure Mean: 91 Progress Progress Note #1: Progress Note Check basic labs including cardiac enzymes and electrocardiogram. Since there was concern of patient feeling cold at home will also check urinalysis and look for signs of infection. Give a dose of protonix along with toradol for pain and possible gastritis. Morphine for more severe pain and to help her relax while tests are running Progress Note #2: Progress Note Labs are all stable without acute significant normality. She has no elevation of her troponin. Her chest x-ray is clear and her electrocardiogram does not show acute ST elevation. She was still having headache and seemed to be anxious when reviewing results with the findings. Will repeat some pain medication at adding some Protonix for possible reflux or gastritis. Progress Note #3: Progress Note Patient was complaining of itching from getting the second dose of opiates. We will give a dose of Benadryl and plan on rechecking the troponin at 2 hours. Progress Note #4: Progress Note Repeat troponin was still negative. Urinalysis was finally collected and also was negative for any sign of infection. Reassured patient and mother about findings and results. Patient was concerned that she might have a UTI because the last time she was seen for chest pain when she followed up in the clinic she had a UTI. However her urine tonight does not show any signs of infection that would indicate the need for any antibiotic. Counseled to follow-up or return if she has worsening or new symptoms. Initial ECG Impression Date: Jun 14, 2021 Initial ECG Impression Time: 15:27 Initial ECG Rate: 83 Initial ECG Rhythm: Normal Sinus Initial ECG Comparisson: Unchanged Comment Normal sinus rhythm with a heart rate of [address] elevation. TN interval 167 ms. There is baseline wander on the tracing. QT interval 375 ms with a QTc interval 441 ms. Appears similar to prior tracings in the system. Diagnostic Imaging Diagonstic Imaging: Xray Plain Films/CT/US/NM/MRI: chest Comments [facility] [place], [place] NAME: LLOYD OBRIEN [facility] REC#: [id number] PT STATUS: REG ER : 1975 PHYSICIAN: MCKENNA HOFFMANN MD ADMIT DATE: 06/14/21/ER FS Signed Date of Exam:06/14/21 CHEST 1 VIEW AP/PA ONLY CLINICAL INDICATION: Patient with chest pain. EXAM: Portable chest x-ray upright view. COMPARISON: Chest x-ray dated 11/29/2020. FINDINGS: Lungs/pleura: Lungs are clear. There is no pneumothorax. There is no pleural effusion. Mediastinum: Unremarkable. Pulmonary vasculature: Unremarkable. Heart: Unremarkable. Bones/extrathoracic soft tissue: Unremarkable. Surgical clips are seen overlying the right upper quadrant which could be related to cholecystectomy changes. IMPRESSION: There is no radiographic evidence of acute cardiopulmonary process. Dictated by: Dictated on workstation # [id number] Dict: 06/14/21 1556 Trans: 06/14/21 1719 [facility] [id number] Interpreted by: ROBERT STANFORD MD Electronically signed by: ROBERT STANFORD MD 06/14/21 1719 Departure Impression Primary Impression: Atypical chest pain Disposition: 01 HOME, SELF-CARE Condition: Stable Departure-Patient Inst. Decision time for Depature: 18:21 Referrals: CHRISTEL HUI APRN (PCP) Primary Care Physician [facility]/KRANTHI (Family) Primary Care Physician Patient Instructions: Chest Pain, Adult ED Add. Discharge Instructions: The test today to look at your heart, lungs, urine and general blood work all looked okay and did not show signs of infection or heart attack. Check with the clinic or return if having worsening or continued problems. As far as the itching from the opiates and narcotics you could take your hydroxyzine when you get home or additional Benadryl. The Benadryl could be dosed at 25 to 50 mg every 4 hours as needed for itching. All discharge instructions reviewed with patient and/or family. Voiced understanding. MCKENNA HOFFMANN MD Jun 14, 2021 15:50
[2021-06-14 15:56] LABS: ALANINE AMINOTRANSFERASE 22 U/L (0-55); ALKALINE PHOSPHATASE 150 U/L (40-136); BILIRUBIN,TOTAL < 0.2 MG/DL (0.1-1.0); BUN/CREATININE RATIO 17; CALCIUM 9.2 MG/DL (8.5-10.1); CARBON DIOXIDE 20 MMOL/L (21-32); CHLORIDE 100 MMOL/L (98-107); CREATININE SERUM 0.52 MG/DL (0.60-1.30); GFR ESTIMATED 117; GLUCOSE 215 MG/DL (70-105); MAGNESIUM 1.8 MG/DL (1.6-2.4); POTASSIUM 4.3 MMOL/L (3.6-5.0); SODIUM 136 MMOL/L (135-145); TOTAL PROTEIN 7.3 GM/DL (6.4-8.2)
[2021-06-14 15:57] LABS: ALBUMIN 3.9 GM/DL (3.2-4.5); LIPASE 34 U/L (8-78)
--- NOTE | 2021-06-14 16:03 | Diagnostic Imaging Report ---
CLINICAL INDICATION: Patient with chest pain. EXAM: Portable chest x-ray upright view. COMPARISON: Chest x-ray dated 11/29/2020. FINDINGS: Lungs/pleura: Lungs are clear. There is no pneumothorax. There is no pleural effusion. Mediastinum: Unremarkable. Pulmonary vasculature: Unremarkable. Heart: Unremarkable. Bones/extrathoracic soft tissue: Unremarkable. Surgical clips are seen overlying the right upper quadrant which could be related to cholecystectomy changes. IMPRESSION: There is no radiographic evidence of acute cardiopulmonary process. Dictated by: Dictated on workstation # [id number]
[2021-06-14] MEDS ORDERED: fentaNYL INJ 100 MCG/2 ML AMP IVP STA (16:32)
[2021-06-14 16:46] LABS: BILIRUBIN,URINE NEGATIVE (NEGATIVE); CLARITY,URINE CLEAR; COLOR,URINE YELLOW; GLUCOSE, URINE (UA) TRACE (NEGATIVE); KETONES,URINE NEGATIVE (NEGATIVE); NITRITE,URINE NEGATIVE (NEGATIVE); PROTEIN,URINE NEGATIVE (NEGATIVE)
[2021-06-14 16:47] LABS: BACTERIA,URINE NEGATIVE /HPF; LEUKOCYTE ESTERASE ,URINE NEGATIVE (NEGATIVE); RBC,URINE 0-2 /HPF
[2021-06-14] MEDS ORDERED: diphenhydrAMINE 50 MG/ML INJ (BENADRYL) IVP STA (17:00)
[2021-06-14 18:01] VITALS: BP 128/68
== END 2021-06-14 18:25 | disposition home or self-care (01) ==
LOC: EDUNIT# 15:20 → ER FS 15:21
DX: R07.89 Other chest pain (principal); I69.351 Hemiplegia and hemiparesis following cerebral infarction affecting right dominant side; I69.320 Aphasia following cerebral infarction; K21.9 Gastro-esophageal reflux disease without esophagitis; E11.9 Type 2 diabetes mellitus without complications; I10 Essential (primary) hypertension; E78.00 Pure hypercholesterolemia, unspecified; G43.909 Migraine, unspecified, not intractable, without status migrainosus; Z79.82 Long term (current) use of aspirin; Z79.899 Other long term (current) drug therapy; Z79.84 Long term (current) use of oral hypoglycemic drugs
CPT/HCPCS: 36415; 71045; 80053; 81000; 83690; 83735; 83874; 83880; 84484; 85025; 85610; 85730; 93005; 93041

== ENCOUNTER 2021-06-29 21:45 | Emergency (ER) | payer MEDICARE, MEDICAID ==
[2021-06-29] MEDS ORDERED: FAMOTIDINE 20MG/2ML IV (PEPCID) IVP ONE (22:00)
[2021-06-29] MEDS ORDERED: methylPREDNISolone 125 MG (Solu-MEDROL) VIAL IM ONE (22:00)
[2021-06-29] MEDS ORDERED: diphenhydrAMINE 50 MG/ML INJ (BENADRYL) IVP ONE (22:00)
[2021-06-29] MEDS ORDERED: FAMO-119 PO (22:13)
[2021-06-29] MEDS ORDERED: PRD20T PO (22:13)
[2021-06-29] MEDS ORDERED: EPIN0.3P3 IJ (22:13)
[2021-06-29] MEDS ORDERED: CETI10CA PO (22:13)
--- NOTE | 2021-06-29 22:13 | ED Integumentary General ---
General Chief Complaint: Allergic Reaction Stated Complaint: ITCHING Nursing Triage Note: Pt's mother states pt has been itching since being outside earlier. Mother gave pt 2 Benadryl around 2049. 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 Patient given 50 mg of Benadryl 1 hour prior to arrival without improvement. Patient's reaction started while she was in indoors. She denies rash, shortness of breath, airway swelling or difficulty breathing. No other symptoms or complaints. Timing/Duration: just prior to arrival Severity: moderate Possible Cause: other Modifying Factors: improves with other Associated Symptoms: other Allergies and Home Medications Allergies Coded Allergies: cefazolin (Verified Allergy, Unknown, 07/04/18) enoxaparin (Verified Allergy, Unknown, 07/04/18) Uncoded Allergies: PENICILLIN (Allergy, Unknown, 07/04/18) Patient Home Medication List Home Medication List Reviewed: Yes Aspirin (Aspirin EC) 325 Mg Tablet.dr, 325 MG PO DAILY, (Reported) Entered as Reported by: JANESSA LOMBARDI on 03/01/19 1025 Atorvastatin Calcium (Atorvastatin Calcium) 10 Mg Tablet, 10 MG PO DAILY, (Reported) Entered as Reported by: JANESSA LOMBARDI on 03/01/19 1025 Baclofen (Baclofen) 20 Mg Tablet, 20 MG PO QID, (Reported) Entered as Reported by: JANESSA LOMBARDI on 03/01/19 1025 Cyclobenzaprine HCl (Cyclobenzaprine HCl) 10 Mg Tablet, 10 MG PO QID, (Reported) Entered as Reported by: JANESSA LOMBARDI on 03/01/19 1025 Docusate Sodium (Colace) 100 Mg Capsule, 100 MG PO HS, (Reported) Entered as Reported by: JANESSA LOMBARDI on 03/01/19 1025 Docusate Sodium (Colace) 100 Mg Capsule, 100 MG PO DAILY, (Reported) Entered as Reported by: JANESSA LOMBARDI on 03/01/19 1025 Dulaglutide (Trulicity) 1.5 Mg/0.5 Ml Pen.injctr, 1.5 MG SC Fr, (Reported) Entered as Reported by: JANESSA LOMBARDI on 03/01/19 1025 Famotidine (Famotidine) 40 Mg Tablet, 40 MG PO BID, (Reported) Entered as Reported by: JANESSA LOMBARDI on 03/01/19 1025 Gabapentin (Gabapentin) 300 Mg Capsule, 600 MG PO QID, (Reported) Entered as Reported by: JANESSA LOMBARDI on 03/01/19 102 Glipizide (Glipizide) 10 Mg Tablet, 10 MG PO BID, (Reported) Entered as Reported by: JANESSA LOMBARDI on 03/01/19 102 Hydroxyzine HCl (Hydroxyzine HCl) 50 Mg Tablet, 50 MG PO Q6H PRN for ITCHING, (Reported) Entered as Reported by: JANESSA LOMBARDI on 03/01/19 102 Levetiracetam (Levetiracetam) 100 Mg/Ml Solution, 10 ML PO BID, (Reported) Entered as Reported by: JANESSA LOMBARDI on 03/01/19 102 Lisinopril (Lisinopril) 20 Mg Tablet, 20 MG PO DAILY, (Reported) Entered as Reported by: JANESSA LOMBARDI on 03/01/19 102 Metoclopramide HCl (Metoclopramide HCl) 5 Mg Tablet, 5 MG PO QID, (Reported) Entered as Reported by: JANESSA LOMBARDI on 03/01/19 102 Metoprolol Tartrate (Metoprolol Tartrate) 50 Mg Tablet, 50 MG PO BID, (Reported) Entered as Reported by: JANESSA LOMBARDI on 03/01/19 102 Montelukast Sodium (Montelukast Sodium) 10 Mg Tablet, 10 MG PO HS, (Reported) Entered as Reported by: JANESSA LOMBARDI on 03/01/19 1025 [place]-3/Dha/Epa/Fish Oil (Fish Oil 1,000 mg Softgel) 1 Each Capsule, 1 EACH PO DAILY, (Reported) Entered as Reported by: FÉLIX SOLARES on 02/08/20 1856 Omeprazole (Omeprazole) 20 Mg Capsule.dr, 20 MG PO DAILY, (Reported) Entered as Reported by: JANESSA LOMBARDI on 03/01/19 1025 Oxycodone Hcl (Oxyir Tablet) 5 Mg Tablet, 5 MG PO Q4H PRN for PAIN-SEVERE, (Reported) Entered as Reported by: JANESSA LOMBARDI on 03/01/19 1025 Potassium Chloride (Potassium Chloride) 10 Meq Capsule.er, 10 MEQ PO DAILY, (Reported) Entered as Reported by: JANESSA LOMBARDI on 03/01/19 1025 Sitagliptin Phosphate (Januvia) 100 Mg Tablet, 100 MG PO DAILY, (Reported) Entered as Reported by: JANESSA LOMBARDI on 03/01/19 1025 [Multivitamin gummies] , (Reported) Entered as Reported by: FÉLIX SOLARES on 02/08/201855 [Zinc] , (Reported) Entered as Reported by: FÉLIX SOLARES on 02/08/201855 Review of Systems Review of Systems Constitutional: see HPI EENTM: see HPI Respiratory: see HPI Gastrointestinal: see HPI Musculoskeletal: see HPI Skin: see HPI Psychiatric/Neurological: See HPI Endocrine: See HPI Hematologic/Lymphatic: See HPI Past Conpfff-Bshzyz-Caorxu Hx Patient Social History Tobacco Use?: Yes Use of E-Cig and/or Vaping dev: No Alcohol Use?: No Pt feels they are or have been: No Immunizations Up To Date First/Initial COVID19 Vaccinat: 07/16/20 Second COVID19 Vaccination Solomon: 08/13/20 Third COVID19 Vaccination Date: 07/16/20 Seasonal Allergies Seasonal Allergies: No Past Medical History Surgery/Hospitalization HX: Stroke with residual right sided weakness and expressive aphasia Surgeries: Yes (cranial) Respiratory: No Cardiac: Yes High Cholesterol, Hypertension Neurological: Yes (2013 cva) Headaches /Migraines, Paralysis, Spinal Cord Injury Genitourinary: No Gastrointestinal: No Musculoskeletal: No Endocrine: Yes Diabetes, Non-Insulin dep HEENT: No Cancer: No Psychosocial: No Integumentary: No Blood Disorders: No Family Medical History No Pertinent Family Hx Physical Exam Vital Signs Capillary Refill : Less Than 3 Seconds General Appearance: WD/WN, no apparent distress HEENT: PERRL/EOMI, normal ENT inspection, pharynx normal Neck: non-tender, full range of motion, supple Cardiovascular: normal peripheral pulses, regular rate, rhythm Respiratory: chest non-tender Gastrointestinal: non tender, soft Neurologic/Psychiatric: alert, other (Right hemiparesis) Skin Problem Location: other (No rash) Progress/Results/Core Measures Results/Orders My Orders Orders - YARIEL BRANHAM DO Methylprednisolone Sod Succ (Solu-Medrol (06/29/21 22:00) Diphenhydramine Injection (Benadryl Inje (06/29/21 22:00) Famotidine Injection (Pepcid Injection) (06/29/21 22:00) Blood Pressure Mean: 94 Departure Communication (Admissions) Pruritus without rash consistent with allergic reaction or airway compromise. Steroids, antihistamines given with clinical improvement. Recommendations supportive care watchful waiting and PCP follow-up. Return precautions reviewed. Impression Primary Impression: Allergic reaction Disposition: HOME, SELF-CARE Condition: Stable Departure-Patient Inst. Decision time for Depature: 22:10 Referrals: CHRISTEL HUI APRN (PCP/Family) Primary Care Physician Patient Instructions: Allergic Reaction ED Add. Discharge Instructions: Please take newly prescribed medications as directed and follow-up with PCP if symptoms persist. Return to the ED if new or worsening symptoms All discharge instructions reviewed with patient and/or family. Voiced understanding. Scripts Epinephrine (Epipen 2-Cuauhtemoc) 0.3 Mg/0.3 Ml Auto.injct 0.3 MG IJ Q20M, #1 ML Prov: YARIEL BRANHAM DO 06/29/21 Cetirizine HCl (Zyrtec) 10 Mg Capsule 10 MG PO BID, #10 CAP Prov: YARIEL BRANHAM DO 06/29/21 Famotidine (Pepcid) 20 Mg Tablet 20 MG PO BID, #10 TAB Prov: YARIEL BRANHAM DO 06/29/21 Prednisone (Prednisone) 20 Mg Tab 40 MG PO DAILY, #3 TAB 0 Refills Prov: YARIEL BRANHAM DO 06/29/21 YARIEL BRANHAM DO Jun 29, 2021 22:13
[2021-06-29] MEDS ORDERED: methylPREDNISolone 125 MG (Solu-MEDROL) VIAL IVP ONE (22:15)
[2021-06-29 22:28] VITALS: BP 130/76
== END 2021-06-29 22:47 | disposition home or self-care (01) ==
LOC: EDUNIT# 21:45 → ER FS 21:47
DX: T78.49XA Other allergy, initial encounter (principal); Z72.0 Tobacco use
CPT/HCPCS: 96374; 96375; 99281

== ENCOUNTER → 2021-07-31 | Outpatient (CLI) | payer MEDICARE, MEDICAID ==
[~2021-07-31] MED LIST changes: +CETI10CA PO; +EPIN0.3P3 IJ
--- NOTE | 2021-07-31 17:24 | Diagnostic Imaging Report ---
INDICATION: Back pain. COMPARISON: None. FINDINGS: Frontal and lateral views of the thoracic spine were obtained. Visualization of the upper thoracic spine is limited on the lateral projection. Alignment and vertebral heights are maintained. There is no fracture or destructive process. There are no large paraspinal masses. There is mild multilevel intervertebral disc height loss and small endplate osteophyte formations. Limited views of the lungs are clear. IMPRESSION: No acute fracture or dislocation of the thoracic spine. Dictated by: Dictated on workstation # [id number]
== END ==
LOC: RAD FS 15:48
PROVIDERS: ATTEND Nurse Practitioner Family
DX: M54.6 Pain in thoracic spine (principal)
CPT/HCPCS: 72070

== ENCOUNTER 2021-08-15 20:55 | Emergency (ER) | payer MEDICARE, MEDICAID ==
[~2021-08-15] VITALS: Ht 157 cm; Wt 93.0 kg
[2021-08-15 21:01] VITALS: BP 139/92
[2021-08-15] MEDS ORDERED: predniSONE 20 MG TAB PO ONE (21:15)
[2021-08-15] MEDS ORDERED: FAMOTIDINE 20 MG (PEPCID) TABLET PO ONE (21:15)
[2021-08-15] MEDS ORDERED: PRD20T PO (21:18)
[2021-08-15] MEDS ORDERED: FAMO-119 PO (21:18)
--- NOTE | 2021-08-15 21:19 | ED General ---
General Chief Complaint: Allergic Reaction Stated Complaint: ALL OVER BODY ITCHING Source of Information: Patient Exam Limitations: No Limitations History of Present Illness Date Seen by Provider: Aug 15, 2021 Time Seen by Provider: 21:00 Initial Comments Patient is a 46-year-old female who presents with pruritus without rash. Sympto m onset was 6 hours ago. Patient took Benadryl prior to ED arrival without provement. History of idiopathic itching. Patient is accompanied at bedside by her mother. Timing/Duration: 4-6 Hours Severity: Mild Modifying Factors: improves with Other Associated Systoms: Other Allergies and Home Medications Allergies Coded Allergies: cefazolin (Verified Allergy, Unknown, 07/04/18) enoxaparin (Verified Allergy, Unknown, 07/04/18) Uncoded Allergies: PENICILLIN (Allergy, Unknown, 07/04/18) Patient Home Medication List Home Medication List Reviewed: Yes Aspirin (Aspirin EC) 325 Mg Tablet.dr, 325 MG PO DAILY, (Reported) Entered as Reported by: JANESSA LOMBARDI on 03/01/19 1025 Atorvastatin Calcium (Atorvastatin Calcium) 10 Mg Tablet, 10 MG PO DAILY, (R eported) Entered as Reported by: JANESSA LOMBARDI on 03/01/19 1025 Baclofen (Baclofen) 20 Mg Tablet, 20 MG PO QID, (Reported) Entered as Reported by: JANESSA LOMBARDI on 03/01/19 1025 Cetirizine HCl (Zyrtec) 10 Mg Capsule, 10 MG PO BID Prescribed by: YARIEL BRANHAM on 06/29/212212 Cyclobenzaprine HCl (Cyclobenzaprine HCl) 10 Mg Tablet, 10 MG PO QID, (Reported) Entered as Reported by: JANESSA LOMBARDI on 03/01/19 1025 Docusate Sodium (Colace) 100 Mg Capsule, 100 MG PO HS, (Reported) Entered as Reported by: JANESSA LOMBARDI on 03/01/19 1025 Docusate Sodium (Colace) 100 Mg Capsule, 100 MG PO DAILY, (Reported) Entered as Reported by: JANESSA LOMBARDI on 03/01/19 1025 Dulaglutide (Trulicity) 1.5 Mg/0.5 Ml Pen.injctr, 1.5 MG SC Fr, (Reported) Entered as Reported by: JANESSA LOMBARDI on 03/01/19 1025 Epinephrine (Epipen 2-Cuauhtemoc) 0.3 Mg/0.3 Ml Auto.injct, 0.3 MG IJ Q20M Prescribed by: YARIEL BRANHAM on 06/29/212212 Famotidine (Famotidine) 40 Mg Tablet, 40 MG PO BID, (Reported) Entered as Reported by: JANESSA LOMBARDI on 03/01/19 102 Famotidine (Pepcid) 20 Mg Tablet, 20 MG PO BID Prescribed by: YARIEL BRANHAM on 06/29/212212 Gabapentin (Gabapentin) 300 Mg Capsule, 600 MG PO QID, (Reported) Entered as Reported by: JANESSA LOMBARDI on 03/01/19 102 Glipizide (Glipizide) 10 Mg Tablet, 10 MG PO BID, (Reported) Entered as Reported by: JANESSA LOMBARDI on 03/01/19 102 Hydroxyzine HCl (Hydroxyzine HCl) 50 Mg Tablet, 50 MG PO Q6H PRN for ITCHING, (Reported) Entered as Reported by: JANESSA LOMBARDI on 03/01/19 102 Levetiracetam (Levetiracetam) 100 Mg/Ml Solution, 10 ML PO BID, (Reported) Entered as Reported by: JANESSA LOMBARDI on 03/01/19 102 Lisinopril (Lisinopril) 20 Mg Tablet, 20 MG PO DAILY, (Reported) Entered as Reported by: JANESSA LOMBARDI on 03/01/19 1025 Metoclopramide HCl (Metoclopramide HCl) 5 Mg Tablet, 5 MG PO QID, (Reported) Entered as Reported by: JANESSA LOMBARDI on 03/01/19 102 Metoprolol Tartrate (Metoprolol Tartrate) 50 Mg Tablet, 50 MG PO BID, (Reported) Entered as Reported by: JANESSA LOMBARDI on 03/01/19 1025 Montelukast Sodium (Montelukast Sodium) 10 Mg Tablet, 10 MG PO HS, (Reported) Entered as Reported by: JANESSA LOMBARDI on 03/01/19 1025 [place]-3/Dha/Epa/Fish Oil (Fish Oil 1,000 mg Softgel) 1 Each Capsule, 1 EACH PO DAILY, (Reported) Entered as Reported by: FÉLIX SOLARES on 02/08/20 1856 Omeprazole (Omeprazole) 20 Mg Capsule.dr, 20 MG PO DAILY, (Reported) Entered as Reported by: JANESSA LOMBARDI on 03/01/19 1025 Oxycodone Hcl (Oxyir Tablet) 5 Mg Tablet, 5 MG PO Q4H PRN for PAIN-SEVERE, (Reported) Entered as Reported by: JANESSA LOMBARDI on 03/01/19 1025 Potassium Chloride (Potassium Chloride) 10 Meq Capsule.er, 10 MEQ PO DAILY, (Reported) Entered as Reported by: JANESSA LOMBARDI on 03/01/19 1025 Prednisone (Prednisone) 20 Mg Tab, 40 MG PO DAILY Prescribed by: YARIEL BRANHAM on 06/29/212212 Sitagliptin Phosphate (Januvia) 100 Mg Tablet, 100 MG PO DAILY, (Reported) Entered as Reported by: JANESSA LOMBARDI on 03/01/19 1025 [Multivitamin gummies] , (Reported) Entered as Reported by: FÉLIX SOLARES on 02/08/20 185 [Zinc] , (Reported) Entered as Reported by: FÉLIX SOLARES on 02/08/201855 Review of Systems Review of Systems Constitutional: see HPI EENTM: see HPI Respiratory: see HPI Cardiovascular: see HPI Gastrointestinal: see HPI Genitourinary: see HPI Musculoskeletal: see HPI Psychiatric/Neurological: See HPI Hematologic/Lymphatic: See HPI Immunological/Allergic: see HPI All Other Systems Reviewed Negative Unless Noted: Yes Past Vhwvjaj-Hssssr-Evoqtu Hx Patient Social History Tobacco Use?: No Use of E-Cig and/or Vaping dev: No Substance use?: No Alcohol Use?: No Pt feels they are or have been: No Immunizations Up To Date First/Initial COVID19 Vaccinat: 07/16/20 Second COVID19 Vaccination Solomon: 08/13/20 Third COVID19 Vaccination Date: 07/16/20 Seasonal Allergies Seasonal Allergies: No Past Medical History Surgery/Hospitalization HX: CVA w/ craniotomy 2013, ej Surgeries: Yes (cranial) Respiratory: No Cardiac: Yes High Cholesterol, Hypertension Neurological: Yes (2013 cva) Headaches /Migraines, Paralysis, Spinal Cord Injury Genitourinary: No Gastrointestinal: No Musculoskeletal: No Endocrine: Yes Diabetes, Non-Insulin dep HEENT: No Cancer: No Psychosocial: No Integumentary: No Blood Disorders: No Family Medical History No Pertinent Family Hx Physical Exam Vital Signs Capillary Refill : Height, Weight, BMI Height: 5'2.00" Weight: 213lbs. 0oz. 96.254962ue; 37.00 BMI Method:Stated General Appearance: No Apparent Distress, WD/WN Eyes: Bilateral Eye Normal Inspection, Bilateral Eye PERRL HEENT: PERRL/EOMI Neck: Supple Respiratory: Lungs Clear Cardiovascular: Regular Rate, Rhythm Gastrointestinal: Non Tender Skin: No Rash Progress/Results/Core Measures Suspected Sepsis SIRS Temperature: Pulse: Respiratory Rate: Blood Pressure / Mean: Results/Orders My Orders Orders - YARIEL BRANHAM DO Prednisone Tablet (Deltasone Tablet) (08/15/21 21:15) Famotidine Tablet (Pepcid Tablet) (08/15/21 21:15) Vital Signs/I&O Capillary Refill : Departure Communication (Admissions) Steroids and antihistamines given. We will continue supportive care with PCP follow-up. Return precautions reviewed Impression Primary Impression: Allergic reaction Disposition: HOME, SELF-CARE Condition: Stable Departure-Patient Inst. Decision time for Depature: 21:17 Referrals: CHRISTEL HUI APRN (PCP/Family) Primary Care Physician Patient Instructions: Allergic Reaction ED Add. Discharge Instructions: You were evaluated in the emergency department for itching. Please take newly prescribed medications as directed and follow-up with your PCP. All discharge instructions reviewed with patient and/or family. Voiced understanding. Scripts Famotidine (Pepcid) 20 Mg Tablet 20 MG PO BID, #10 TAB Prov: YARIEL BRANHAM DO 08/15/21 Prednisone (Prednisone) 20 Mg Tab 40 MG PO DAILY, #6 TAB 0 Refills Prov: YARIEL BRANHAM DO 08/15/21 YARIEL BRANHAM DO Aug 15, 2021 21:18
== END 2021-08-15 21:32 | disposition home or self-care (01) ==
LOC: ER FS 20:55 → EDUNIT# 20:55 → ER FS 21:32
DX: T78.40XA Allergy, unspecified, initial encounter (principal); E11.9 Type 2 diabetes mellitus without complications
CPT/HCPCS: 99283

== ENCOUNTER 2022-10-14 08:58 | Emergency (ER) | payer MEDICARE, MEDICAID ==
[~2022-10-14 08:58] MED LIST changes: -POTA10CA43 PO; +POTA10CA44 PO
--- NOTE | 2022-10-14 09:08 | ED General ---
General Stated Complaint: VAGINAL BLEEDING Source of Information: Patient, Caregiver, EMS, Old Records Exam Limitations: No Limitations History of Present Illness Date Seen by Provider: Oct 14, 2022 Time Seen by Provider: 08:58 Initial Comments 47-year-old female with past medical history of CVA (believed to be caused by trauma to her neck, residual right-sided weakness and expressive aphasia), hypertension, hyperlipidemia, diabetes coming in via EMS from home due to vaginal bleeding and weakness. The patient reportedly has had heavy menstruation for the past 14 months. Typically last about a week with 5 days of heavy bleeding. This most recent episode has been going on for 5 days, typically slows down by now, and spit up over the past couple of days. She has gone through 10 heavy pads the past 24 hours, most of these fully saturated, often times there is toilet paper off so stuffed into her underwear to help catch the blood they state. 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 Increasing bleeding over the past 48 hours, now feeling generally more weak and that is why they called EMS. Denies any chest pain, shortness of breath, abdominal pain, nausea, vomiting, diarrhea fever, chills, new weakness or numbness. Allergies and Home Medications Allergies Coded Allergies: cefazolin (Verified Allergy, Unknown, 07/04/18) enoxaparin (Verified Allergy, Unknown, 07/04/18) Uncoded Allergies: PENICILLIN (Allergy, Unknown, 07/04/18) Patient Home Medication List Home Medication List Reviewed: Yes Aspirin (Aspirin EC) 325 Mg Tablet.dr, 325 MG PO DAILY, (Reported) Entered as Reported by: JANESSA LOMBARDI on 03/01/19 1025 Atorvastatin Calcium (Atorvastatin Calcium) 10 Mg Tablet, 10 MG PO DAILY, (Reported) Entered as Reported by: JANESSA LOMBARDI on 03/01/19 1025 Baclofen (Baclofen) 20 Mg Tablet, 20 MG PO QID, (Reported) Entered as Reported by: JANESSA LOMBARDI on 03/01/19 1025 Cetirizine HCl (Zyrtec) 10 Mg Capsule, 10 MG PO BID Prescribed by: YARIEL BRANHAM on 06/29/212212 Cyclobenzaprine HCl (Cyclobenzaprine HCl) 10 Mg Tablet, 10 MG PO QID, (Reported) Entered as Reported by: JANESSA LOMBARDI on 03/01/19 102 Docusate Sodium (Colace) 100 Mg Capsule, 100 MG PO HS, (Reported) Entered as Reported by: JANESSA LOMBARDI on 03/01/19 102 Docusate Sodium (Colace) 100 Mg Capsule, 100 MG PO DAILY, (Reported) Entered as Reported by: JANESSA LOMBARDI on 03/01/19 102 Dulaglutide (Trulicity) 1.5 Mg/0.5 Ml Pen.injctr, 1.5 MG SC Fr, (Reported) Entered as Reported by: JANESSA LOMBARDI on 03/01/19 102 Epinephrine (Epipen 2-Cuauhtemoc) 0.3 Mg/0.3 Ml Auto.injct, 0.3 MG IJ Q20M Prescribed by: YARIEL BRANHAM on 06/29/212212 Famotidine (Famotidine) 40 Mg Tablet, 40 MG PO BID, (Reported) Entered as Reported by: JANESSA LOMBARDI on 03/01/19 102 Famotidine (Pepcid) 20 Mg Tablet, 20 MG PO BID Prescribed by: YARIEL BRANHAM on 06/29/212212 Famotidine (Pepcid) 20 Mg Tablet, 20 MG PO BID Prescribed by: YARIEL BRANHAM on 08/15/212117 Gabapentin (Gabapentin) 300 Mg Capsule, 600 MG PO QID, (Reported) Entered as Reported by: JANESSA LOMBARDI on 03/01/19 102 Glipizide (Glipizide) 10 Mg Tablet, 10 MG PO BID, (Reported) Entered as Reported by: JANESSA LOMBARDI on 03/01/19 102 Hydroxyzine HCl (Hydroxyzine HCl) 50 Mg Tablet, 50 MG PO Q6H PRN for ITCHING, (Reported) Entered as Reported by: JANESSA LOMBARDI on 03/01/19 102 Levetiracetam (Levetiracetam) 100 Mg/Ml Solution, 10 ML PO BID, (Reported) Entered as Reported by: JANESSA LOMBARDI on 03/01/19 102 Lisinopril (Lisinopril) 20 Mg Tablet, 20 MG PO DAILY, (Reported) Entered as Reported by: JANESSA LOMBARDI on 03/01/19 102 Metoclopramide HCl (Metoclopramide HCl) 5 Mg Tablet, 5 MG PO QID, (Reported) Entered as Reported by: JANESSA LOMBARDI on 03/01/19 1025 Metoprolol Tartrate (Metoprolol Tartrate) 50 Mg Tablet, 50 MG PO BID, (Reported) Entered as Reported by: JANESSA LOMBARDI on 03/01/19 102 Montelukast Sodium (Montelukast Sodium) 10 Mg Tablet, 10 MG PO HS, (Reported) Entered as Reported by: JANESSA LOMBARDI on 03/01/19 102 [place]-3/Dha/Epa/Fish Oil (Fish Oil 1,000 mg Softgel) 1 Each Capsule, 1 EACH PO DAILY, (Reported) Entered as Reported by: FÉLIX SOLARES on 02/08/201855 Omeprazole (Omeprazole) 20 Mg Capsule.dr, 20 MG PO DAILY, (Reported) Entered as Reported by: JANESSA LOMBARDI on 03/01/19 102 Oxycodone Hcl (Oxyir Tablet) 5 Mg Tablet, 5 MG PO Q4H PRN for PAIN-SEVERE, (Reported) Entered as Reported by: JANESSA LOMBARDI on 03/01/19 102 Potassium Chloride (Potassium Chloride) 10 Meq Capsule.er, 10 MEQ PO DAILY, (Reported) Entered as Reported by: JANESSA LOMBARDI on 03/01/19 102 Prednisone (Prednisone) 20 Mg Tab, 40 MG PO DAILY Prescribed by: YARIEL BRANHAM on 06/29/212212 Prednisone (Prednisone) 20 Mg Tab, 40 MG PO DAILY Prescribed by: YARIEL BRANHAM on 08/15/212117 Sitagliptin Phosphate (Januvia) 100 Mg Tablet, 100 MG PO DAILY, (Reported) Entered as Reported by: JANESSA LOMBARDI on 03/01/19 102 Tranexamic Acid (Tranexamic Acid) 650 Mg Tablet, 650 MG PO TID Prescribed by: FLORIN BATES on 10/14/22 1144 [Multivitamin gummies] , (Reported) Entered as Reported by: FÉLIX SOLARES on 02/08/201855 [Zinc] , (Reported) Entered as Reported by: FÉLIX SOLARES on 02/08/201855 Review of Systems Review of Systems Constitutional: No fever EENTM: no symptoms reported Respiratory: no symptoms reported Cardiovascular: no symptoms reported Genitourinary: see HPI Musculoskeletal: no symptoms reported Skin: no symptoms reported Psychiatric/Neurological: No Symptoms Reported Hematologic/Lymphatic: See HPI Past Rkdyfur-Dbwwed-Ilagbk Hx Patient Social History Tobacco Use?: No Immunizations Up To Date First/Initial COVID19 Vaccinat: 07/16/20 Second COVID19 Vaccination Solomon: 08/13/20 Third COVID19 Vaccination Date: 07/16/20 Seasonal Allergies Seasonal Allergies: No Past Medical History Surgery/Hospitalization HX: CVA w/ craniotomy 2013, ej Surgeries: Yes (cranial) Respiratory: No Cardiac: Yes High Cholesterol, Hypertension Neurological: Yes (2013 cva) Headaches /Migraines, Paralysis, Spinal Cord Injury Genitourinary: No Gastrointestinal: No Musculoskeletal: No Endocrine: Yes Diabetes, Non-Insulin dep HEENT: No Cancer: No Psychosocial: No Integumentary: No Blood Disorders: No Family Medical History No Pertinent Family Hx Physical Exam Vital Signs Vital Signs - First Documented 10/14/22 09:17 Temp 35.8 Pulse 138 Resp 16 B/P (MAP) 138/92 (107) Pulse Ox 92 O2 Delivery Room Air Capillary Refill : Height, Weight, BMI Height: 5'2.00" Weight: 213lbs. 0oz. 96.441391lo; 37.00 BMI Method:Stated General Appearance: No Apparent Distress, WD/WN Eyes: Bilateral Eye Normal Inspection HEENT: PERRL/EOMI, Normal ENT Inspection, Pharynx Normal Neck: Full Range of Motion, Normal Inspection, Non Tender, Supple Respiratory: Chest Non Tender, Lungs Clear, Normal Breath Sounds, No Accessory Muscle Use, No Respiratory Distress Cardiovascular: No Edema, Normal Peripheral Pulses, Tachycardia Gastrointestinal: Normal Bowel Sounds, Non Tender, Soft; No Distended, No Guarding Back: Normal Inspection, No CVA Tenderness, No Vertebral Tenderness Extremity: Normal Capillary Refill, Normal Inspection, Normal Range of Motion, Non Tender, No Calf Tenderness, No Pedal Edema Neurologic/Psychiatric: Alert, Normal Mood/Affect, Other (Residual right-sided weakness but at her baseline) Skin: Normal Color, Warm/Dry Progress/Results/Core Measures Suspected Sepsis SIRS Temperature: Pulse: Respiratory Rate: Laboratory Tests 10/14/22 09:09: White Blood Count 17.0H Blood Pressure / Mean: Laboratory Tests 10/14/22 09:09: Creatinine 0.53L, INR Comment 1.0, Platelet Count 333, Total Bilirubin 0.3 Results/Orders Lab Results Laboratory Tests Test 10/14/22 09:09 Range/Units White Blood Count 17.0 H 4.3-11.0 10^3/uL Red Blood Count 3.72 L 3.80-5.11 10^6/uL Hemoglobin 10.3 L 11.5-16.0 g/dL Hematocrit 32 L 35-52 % Mean Corpuscular Volume 87 80-99 fL Mean Corpuscular Hemoglobin 28 25-34 pg Mean Corpuscular Hemoglobin Concent 32 32-36 g/dL Red Cell Distribution Width 13.3 10.0-14.5 % Platelet Count 333 130-400 10^3/uL Mean Platelet Volume 11.7 9.0-12.2 fL Immature Granulocyte % (Auto) 1 % Neutrophils (%) (Auto) 66 42-75 % Lymphocytes (%) (Auto) 28 12-44 % Monocytes (%) (Auto) 4 0-12 % Eosinophils (%) (Auto) 0 0-10 % Basophils (%) (Auto) 1 0-10 % Neutrophils # (Auto) 11.2 H 1.8-7.8 10^3/uL Lymphocytes # (Auto) 4.8 H 1.0-4.0 10^3/uL Monocytes # (Auto) 0.7 0.0-1.0 10^3/uL Eosinophils # (Auto) 0.1 0.0-0.3 10^3/uL Basophils # (Auto) 0.1 0.0-0.1 10^3/uL Immature Granulocyte # (Auto) 0.1 0.0-0.1 10^3/uL Neutrophils % (Manual) 68 % Lymphocytes % (Manual) 25 % Monocytes % (Manual) 3 % Basophils % (Manual) 1 % Band Neutrophils 3 % Platelet Estimate NORMAL Polychromasia SLIGHT Microcytosis SLIGHT Macrocytosis SLIGHT Prothrombin Time 13.7 12.2-14.7 SEC INR Comment 1.0 0.8-1.4 Activated Partial Thromboplast Time 22 L 24-35 SEC D-Dimer 0.31 0.00-0.49 UG/ML Sodium Level 133 L 135-145 MMOL/L Potassium Level 4.7 3.6-5.0 MMOL/L Chloride Level 96 L 98-107 MMOL/L Carbon Dioxide Level 19 L 21-32 MMOL/L Anion Gap 18 H 5-14 MMOL/L Blood Urea Nitrogen 13 7-18 MG/DL Creatinine 0.53 L 0.60-1.30 MG/DL Estimat Glomerular Filtration Rate 115 BUN/Creatinine Ratio 25 Glucose Level 321 H 70-105 MG/DL Calcium Level 9.2 8.5-10.1 MG/DL Corrected Calcium 9.4 8.5-10.1 MG/DL Magnesium Level 1.8 1.6-2.4 MG/DL Total Bilirubin 0.3 0.1-1.0 MG/DL Aspartate Amino Transf (AST/SGOT) 29 5-34 U/L Alanine Aminotransferase (ALT/SGPT) 44 0-55 U/L Alkaline Phosphatase 125 40-136 U/L Troponin I < 0.30 <0.30 NG/ML Pro-B-Type Natriuretic Peptide < 36.0 <125.0 PG/ML Total Protein 6.9 6.4-8.2 GM/DL Albumin 3.8 3.2-4.5 GM/DL Serum Test, Qualitative NEGATIVE NEGATIVE My Orders Orders - FLORIN BATES MD Cbc With Automated Diff (10/14/22 09:02) Comprehensive Metabolic Panel (10/14/22 09:02) Magnesium (10/14/22 09:02) Protime With Inr (10/14/22 09:02) Partial Thromboplastin Time (10/14/22 09:02) Probnp Fs (10/14/22 09:02) Troponin I Fs (10/14/22 09:02) Chest 1 View Ap/Pa Only (10/14/22 09:02) Ed Iv/Invasive Line Start (10/14/22 09:02) Ekg Tracing (10/14/22 09:02) Monitor-Rhythm Ecg Trace Only (10/14/22 09:02) Ns Iv 1000 Ml (Sodium Chloride 0.9%) (10/14/22 09:15) Hcg,Qualitative Serum (10/14/22 09:02) Manual Differential (10/14/22 09:09) Fibrin Degradation Products (10/14/22 09:31) Oxycodone Immediate Rel Tablet (Oxyir Ta (10/14/22 10:00) Ct Abdomen/Pelvis W (10/14/22 10:02) Iohexol Injection (Omnipaque 350 Mg/Ml 1 (10/14/22 10:15) Di Iv Start (Assessment) .IV start (10/14/22 10:06) Received Contrast (Hold Metformin- Contr (10/14/22 10:15) Ns (Ivpb) (Sodium Chloride 0.9% Ivpb Bag (10/14/22 10:15) Ns Iv 500 Ml (Sodium Chloride 0.9%) (10/14/22 11:08) Medications Given in ED Current Medications Medications Dose Ordered Sig/Milly Route Start Time Stop Time Status Last Admin Dose Admin Iohexol 100 ml ONCE ONCE IV 10/14/22 10:15 10/14/22 10:16 DC 10/14/22 10:24 80 ML Oxycodone HCl 5 mg ONCE ONCE PO 10/14/22 10:00 10/14/22 10:01 DC 10/14/22 09:58 5 MG Sodium Chloride 100 ml ONCE ONCE IV 10/14/22 10:15 10/14/22 10:16 DC 10/14/22 10:24 100 ML Vital Signs/I&O 10/14/22 10/14/22 09:17 11:44 Temp 35.8 35.8 Pulse 138 101 Resp 16 16 B/P (MAP) 138/92 (107) 101/75 Pulse Ox 92 94 O2 Delivery Room Air Room Air Capillary Refill : Progress Note : Progress Note 47yoF with above history coming in due to heavy vaginal bleeding. ABCs were intact although the patient was tachycardic on presentation to the 130s. She did appear slightly pale on exam, mild suprapubic tenderness. Otherwise nontoxic-appearing. On external exam, there is no large amount of vaginal bleeding. An IV was placed and basic labs were obtained and were significant for a hemoglobin of 10.3 which is near her baseline, normal platelets, normal coagulation studies, normal creatinine. CT abdomen pelvis ordered and interpreted by me showing a uterine mass just under 5 cm. The radiology report read this as likely a fibroid. The patient received roughly 1 and half liters of IV fluids. Her heart rate went down from the 130s to around 100 and she is feeling better. I contacted Dr. Mccormack, the [employer] exchange administrator on-call. She will move the patient's appointment up to October 21 at 8 AM to see her. She also recom mended either TXA for 5 days or Provera daily. I discussed with the patient and her mother who is her caregiver regarding these medications. Patient states that she has never had any history of clotting, and that the stroke was truly related to a trauma. We opted to go for 5 days of TXA which I wrote the prescription for. I believe the patient is otherwise stable for discharge with outpatient follow-up. She was sent home with strict return precautions ECG Initial ECG Impression Date: Oct 14, 2022 Initial ECG Impression Time: 09:10 Initial ECG Rate: 134 Initial ECG Rhythm: S.Tach Comment Narrow QRS, normal axis, no significant ST changes or T wave abnormalities, appears similar to prior EKG other than this 1 is faster Diagnostic Imaging Diagonstic Imaging: Xray (chest), CT (abd/pelvis) Comments NAME: LLOYD OBRIEN Hole 20 REC#: [id number] PT STATUS: REG ER : 1975 PHYSICIAN: FLORIN BATES MD ADMIT DATE: 10/14/22/ER FS Signed Date of Exam:10/14/22 CHEST 1 VIEW AP/PA ONLY EXAMINATION: Chest 1 view HISTORY: Tachycardia. Hypoxia. COMPARISON: 06/14/2021. FINDINGS: The lung volumes are normal. No focal consolidation is seen. No large pleural effusion or pneumothorax is seen. The cardiomediastinal silhouette is normal in size and contour. No acute osseous abnormality is seen. IMPRESSION: 1. No acute pleuroparenchymal process. Dictated by: Dictated on workstation # [id number] Dict: 10/14/22921 Trans: 10/14/22923 [facility] [id number] Interpreted by: SAUL ARANA DO Electronically signed by: SAUL ARANA DO 10/14/22923 NAME: LLOYD OBRIEN Hole 19 REC#: [id number] PT STATUS: REG ER : 1975 PHYSICIAN: FLORIN BATES MD ADMIT DATE: 10/14/22/ER FS Draft Date of Exam:10/14/22 CT ABDOMEN/PELVIS W EXAMINATION: CT abdomen and pelvis with intravenous contrast. TECHNIQUE: Multiple contiguous axial images were obtained through the abdomen and pelvis after the uneventful administration of intravenous contrast. All CT scans use one or more of the following dose optimizing techniques: Automated exposure control, MA and/or KvP adjustment based on patient size and exam type or iterative reconstruction. HISTORY: Abdominal pain. Left-sided flank pain. COMPARISON: None available. FINDINGS: The heart is unremarkable. Subsegmental atelectasis is seen in the right lung base. There is hepatic steatosis. No focal hepatic lesions. The portal vein is patent. The gallbladder is surgically absent. The spleen, pancreas, adrenal glands, and kidneys have a normal appearance. There is no pathologically enlarged mesenteric or retroperitoneal adenopathy. The bowel loops are nondilated. There is no free fluid or free air. No acute osseous abnormalities. Ureters and bladder are grossly normal. An enhancing mass is seen within the endometrial canal measuring approximately 4.8 x 4.4 cm with fluid in the endometrial canal. There is no free air, loculated collection, or adenopathy in the pelvis. IMPRESSION: 1. Enhancing mass within the endometrial canal with fluid also in the endometrial canal. This may represent a uterine fibroid, although malignancy is not excluded. Recommend gynecologic consultation to further evaluate. 2. Hepatic steatosis. Dictated on workstation # [id number] Dict: 10/14/22 1051 Trans: 10/14/22 [id number] Interpreted by: SAUL ARANA DO Electronically signed by: Departure Impression Primary Impression: Uterine mass Additional Impression: Menorrhagia Qualified Codes: N92.0 - Excessive and frequent menstruation with regular cycle Disposition: 01 HOME, SELF-CARE Condition: Stable Departure-Patient Inst. Decision time for Depature: 11:45 Referrals: [facility] [place] (PCP/Family) Primary Care Physician Patient Instructions: Heavy Periods ED, UTERINE FIBROIDS Add. Discharge Instructions: You will be following up with Dr. Mccormack on October 21 at 8 AM. You will also be starting a new medication 3 times a day for the next 5 days to help stop the bleeding. Scripts Tranexamic Acid (Tranexamic Acid) 650 Mg Tablet 650 MG PO TID for 5 Days, #15 TAB Prov: FLORIN BATES MD 10/14/22 Work/School Note: Family Work Note Patient Received Medical Care In the Emergency Department On: Oct 14, 2022 Patient Will Be Able to Return to Work/School On: Oct 15, 2022 FLORIN BATES MD Oct 14, 2022 09:08
[2022-10-14] MEDS ORDERED: NS IV 1000 ML 1,000 ML IV SCH (09:15)
[2022-10-14 09:17] LABS: BASOPHILS # (AUTO) 0.1 10^3/uL (0.0-0.1); BASOPHILS % (AUTO) 1 % (0-10); EOSINOPHILS # (AUTO) 0.1 10^3/uL (0.0-0.3); EOSINOPHILS % (AUTO) 0 % (0-10); HEMATOCRIT 32 % (35-52); HEMOGLOBIN 10.3 g/dL (11.5-16.0); LYMPHOCYTES # (AUTO) 4.8 10^3/uL (1.0-4.0); LYMPHOCYTES % (AUTO) 28 % (12-44); MEAN CORPUSCULAR HEMOGLOBIN 28 pg (25-34); MEAN CORPUSCULAR HGB CONC 32 g/dL (32-36); MEAN CORPUSCULAR VOLUME 87 fL (80-99); MEAN PLATELET VOLUME 11.7 fL (9.0-12.2); MONOCYTES # (AUTO) 0.7 10^3/uL (0.0-1.0); MONOCYTES % (AUTO) 4 % (0-12); NEUTROPHILS # (AUTO) 11.2 10^3/uL (1.8-7.8); NEUTROPHILS % (AUTO) 66 % (42-75); PLATELET COUNT 333 10^3/uL (130-400)
--- NOTE | 2022-10-14 09:24 | Diagnostic Imaging Report ---
EXAMINATION: Chest 1 view HISTORY: Tachycardia. Hypoxia. COMPARISON: 06/14/2021. FINDINGS: The lung volumes are normal. No focal consolidation is seen. No large pleural effusion or pneumothorax is seen. The cardiomediastinal silhouette is normal in size and contour. No acute osseous abnormality is seen. IMPRESSION: 1. No acute pleuroparenchymal process. Dictated by: Dictated on workstation # [id number]
[2022-10-14 09:35] LABS: PROTHROMBIN TIME PATIENT 13.7 SEC (12.2-14.7)
[2022-10-14 09:59] LABS: ALANINE AMINOTRANSFERASE 44 U/L (0-55); ALKALINE PHOSPHATASE 125 U/L (40-136); BILIRUBIN,TOTAL 0.3 MG/DL (0.1-1.0); BUN/CREATININE RATIO 25; CALCIUM 9.2 MG/DL (8.5-10.1); CARBON DIOXIDE 19 MMOL/L (21-32); CHLORIDE 96 MMOL/L (98-107); CREATININE SERUM 0.53 MG/DL (0.60-1.30); GFR ESTIMATED 115; GLUCOSE 321 MG/DL (70-105); MAGNESIUM 1.8 MG/DL (1.6-2.4); POTASSIUM 4.7 MMOL/L (3.6-5.0); SODIUM 133 MMOL/L (135-145)
[2022-10-14 10:00] LABS: ALBUMIN 3.8 GM/DL (3.2-4.5); TOTAL PROTEIN 6.9 GM/DL (6.4-8.2)
[2022-10-14 10:05] LABS: BAND NEUTROPHILS 3 %; BASOPHILS % (MANUAL) 1 %; LYMPHOCYTES % (MANUAL) 25 %; MONOCYTES % (MANUAL) 3 %; NEUTROPHILS % (MANUAL) 68 %
[2022-10-14 10:06] LABS: MICROCYTOSIS SLIGHT; PLATELET ESTIMATE NORMAL; POLYCHROMASIA SLIGHT
[2022-10-14] MEDS ORDERED: IOHEXOL 350 MG/ML 100 ML (OMNIPAQUE 350) VIAL IV ONE (10:15)
[2022-10-14] MEDS ORDERED: NS 100 ML (IVPB) BAG IV ONE (10:15)
[2022-10-14] MEDS ORDERED: HOLD METFORMIN - RECEIVED CONTRAST 20 ML VIAL IV SCH (10:15)
[2022-10-14] MEDS ORDERED: NS IV 500 ML 500 ML IV STA (11:08)
--- NOTE | 2022-10-14 11:16 | Diagnostic Imaging Report ---
EXAMINATION: CT abdomen and pelvis with intravenous contrast. TECHNIQUE: Multiple contiguous axial images were obtained through the abdomen and pelvis after the uneventful administration of intravenous contrast. All CT scans use one or more of the following dose optimizing techniques: Automated exposure control, MA and/or KvP adjustment based on patient size and exam type or iterative reconstruction. HISTORY: Abdominal pain. Left-sided flank pain. COMPARISON: None available. FINDINGS: The heart is unremarkable. Subsegmental atelectasis is seen in the right lung base. There is hepatic steatosis. No focal hepatic lesions. The portal vein is patent. The gallbladder is surgically absent. The spleen, pancreas, adrenal glands, and kidneys have a normal appearance. There is no pathologically enlarged mesenteric or retroperitoneal adenopathy. The bowel loops are nondilated. There is no free fluid or free air. No acute osseous abnormalities. Ureters and bladder are grossly normal. An enhancing mass is seen within the endometrial canal measuring approximately 4.8 x 4.4 cm with fluid in the endometrial canal. There is no free air, loculated collection, or adenopathy in the pelvis. IMPRESSION: 1. Enhancing mass within the endometrial canal with fluid also in the endometrial canal. This may represent a uterine fibroid, although malignancy is not excluded. Recommend gynecologic consultation to further evaluate. 2. Hepatic steatosis. Dictated by: Dictated on workstation # [id number]
[2022-10-14 11:44] VITALS: BP 101/75
[2022-10-14] MEDS ORDERED: TRAN650T5 PO (11:44)
== END 2022-10-14 11:45 | disposition home or self-care (01) ==
LOC: EDUNIT# 08:58 → ER FS 08:59
DX: N85.8 Other specified noninflammatory disorders of uterus (principal); N92.0 Excessive and frequent menstruation with regular cycle
CPT/HCPCS: 36415; 71045; 74177; 80053; 83735; 83880; 84484; 84703; 85007; 85027; 85379; 85610; 85730; 93005; 93041; Q9967

== ENCOUNTER 2022-11-04 05:32 | Outpatient (CLI) | payer MEDICARE, MEDICAID ==
[~2022-11-04] VITALS: Ht 157.5 cm; Wt 92.7 kg
[~2022-11-04 05:32] MED LIST changes: +TRAN650T5 PO
[2022-11-05] MEDS ORDERED: NFBIOT1000 PO (11:18)
[2022-11-05] MEDS ORDERED: MULT-1060 PO (11:18)
[2022-11-05] MEDS ORDERED: DULA3PEN SQ (11:18)
[2022-11-05] MEDS ORDERED: DOXY25TA50 PO (11:18)
[2022-11-05] MEDS ORDERED: ASCO500C17 PO (11:18)
[2022-11-05] MEDS ORDERED: ZINC50TA11 PO (11:18)
[2022-11-05] MEDS ORDERED: CHOL200074 PO (11:18)
[2022-11-05] MEDS ORDERED: MELA1TAB72 PO (11:18)
== END 2022-11-05 11:51 | disposition home or self-care (01) ==
LOC: PREOP 05:32
PROVIDERS: ATTEND Obstetrics & Gynecology
DX: Z01.818 Encounter for other preprocedural examination (principal)

== ENCOUNTER 2022-11-09 06:01 | Day surgery (SDC) | payer MEDICARE, MEDICAID ==
[~2022-11-09] VITALS: Ht 157.5 cm; Wt 92.7 kg
[2022-11-09] VITALS (11 sets, daily range): BP systolic 95–127; BP diastolic 60–73
[~2022-11-09 06:01] MED LIST changes: +ASCO500C17 PO; +CHOL200074 PO; +DOXY25TA50 PO; +DULA3PEN SQ; +MELA1TAB72 PO; +MULT-1060 PO; +NFBIOT1000 PO; +ZINC50TA11 PO
[2022-11-09] MEDS ORDERED: LACTATED RINGERS 1,000 ML IV PRN (06:15)
[2022-11-09] MEDS ORDERED: SEVOFLURANE (ULTANE) 15 ML INHAL SOLN ONE ×2 (06:55→08:02)
[2022-11-09] MEDS ORDERED: proPOfol 200 MG/20 ML (DIPRIVAN) VIAL IV ONE (06:55)
[2022-11-09] MEDS ORDERED: ONDANSETRON 4 MG/2 ML (SDV) Z0FRAN ONE (06:55)
[2022-11-09] MEDS ORDERED: MIDAZOLAM 2 MG/2 ML (VERSED) VIAL ONE (06:55)
[2022-11-09] MEDS ORDERED: LIDOCAINE PF 2% 5 ML (XYLOCAINE) VIAL ONE (06:55)
[2022-11-09] MEDS ORDERED: fentaNYL INJ 100 MCG/2 ML AMP ONE (06:55)
--- NOTE | 2022-11-09 07:07 | Progress Note-Pre Operative ---
Pre-Operative Progress Note Date H&P Reviewed: Nov 09, 2022 Time H&P Reviewed: 07:05 History & Physical: H&P Reviewed, No changes noted Pre-Operative Diagnosis: Abnormal uterine bleeding Plan for D&C hysteroscopy ablation YOCASTA IBANEZ DO Nov 09, 2022 07:07
[2022-11-09] MEDS ORDERED: KETOROLAC 30 MG/ML VIAL ONE (07:59)
--- NOTE | 2022-11-09 08:18 | Anesthesia-General Post-Op ---
General Patient Condition Mental Status/LOC: Same as Preop Cardiovascular: Satisfactory Nausea/Vomiting: Absent Respiratory: Satisfactory Pain: Controlled Complications: Absent Post Op Complications Complications None Follow Up Care/Instructions Patient Instructions None needed. Anesthesia/Patient Condition Patient Condition Patient is doing well, no complaints, stable vital signs, no apparent adverse anesthesia problems. No complications reported per nursing. D/C home per [facility] Criteria: Yes ABBE DIAMOND CRNA Nov 09, 2022 08:18
--- NOTE | 2022-11-09 08:20 | Discharge Inst-Simple/Standard ---
Discharge Inst-Standard Reconcile Patient Problems Problems Reviewed?: Yes Discharge Medications New, Converted or Re-Newed RX: Other (pt has RX) Patient Instructions/Follow Up Plan of Care/Instructions/FU: f/u @ office in 2wk no tampons, sex, douching Activity as Tolerated: Yes Discharge Diet: Regular Diet YOCASTA IBANEZ DO Nov 09, 2022 08:20
--- NOTE | 2022-11-09 08:26 | Operative Report ---
Operative Report Date of Procedure/Surgery Nov 09, 2022 Surgeon (s) YOCASTA IBANEZ DO Opener (s): none Post-Operative Diagnosis Abnormal uterine bleeding Procedure Performed Dilation and curettage with hysteroscopy and Manju endometrial ablation Description of Procedure Anesthesia Type: General (LMA) Estimated blood loss (mL): Minimal Specimen(s) collected/[place] [facility] [place] of the Procedure Informed consent was obtained and signed patient was taken to the OR [place]. 3 placed under general LMA anesthesia placed in the dorsolithotomy position prepped and draped usual sterile fashion. A timeout was performed. The bladder was drained of 450 cc of clear yellow urine. A pelvic exam under anesthesia revealed a normal-sized anteverted midline uterus no adnexal masses. A weighted speculum was placed into the posterior vaginal vault and a single-tooth tenaculum was used to grasp the anterior lip of the cervix. The Uterus sounded to 9 cm. The cervical length was noted to be 5 cm. The os was already dilated to allow passage of the hysteroscope and using the hysteroscope with sterile water as a fluid medium entered into the uterine cavity without any difficulty. There was a large clot in the fundal part of the cavity of the uterus both ostia were visualized. The hysteroscope was then removed and endometrial curettings were obtained until there was a good uterine cry the endometrial curettings were sent to pathology for further analysis. Next the Manju ablation device was then inserted. It was set for 4 cm which was the cavity length. The cervical os was occluded with the balloon that was attached to the Manju device. The Manju device was then set and went through its processes and noted that there was no perforations. It was engaged for 120 seconds. The Manju device was then removed and the hysteroscope was reinserted. The uterine cavity was inspected and there was noted to be a good burn throughout the uterine cavity. The hysteroscope was removed and the single-tooth tenaculum was also removed followed by the weighted speculum. The estimated blood loss was minimal. Fluids were 800 cc and the fluid for the cavity had 150 cc in 2000 cc out and the 1000 cc left in the bag. All of my counts were correct x2 and the patient was taken to recovery room in stable condition. Findings of the Procedure Blood clot in the uterine cavity good burn throughout after there were the Manju device was engaged Allergies and Home Medications Allergies Coded Allergies: cefazolin (Verified Allergy, Unknown, 11/05/22) enoxaparin (Verified Allergy, Unknown, 11/05/22) Uncoded Allergies: PENICILLIN (Allergy, Unknown, 07/04/18) Patient Home Medication List Home Medication List Reviewed: Yes Ascorbic Acid (Vitamin C) 500 Mg Capsule, 500 MG PO DAILY, (Reported) Entered as Reported by: Gracy Bacon on 11/05/22 1118 Aspirin (Aspirin EC) 325 Mg Tablet.dr, 325 MG PO DAILY, (Reported) Entered as Reported by: JANESSA LOMBARDI on 03/01/19 1025 Atorvastatin Calcium (Atorvastatin Calcium) 10 Mg Tablet, 10 MG PO DAILY, (Reported) Entered as Reported by: JANESSA LOMBARDI on 03/01/19 1025 Baclofen (Baclofen) 20 Mg Tablet, 20 MG PO QID, (Reported) Entered as Reported by: JANESSA LOMBARDI on 03/01/19 1025 Biotin (Biotin) 1 Mg Tablet, 1,000 MCG PO DAILY, (Reported) Entered as Reported by: Gracy Bacon on 11/05/22 1118 Cetirizine HCl (Zyrtec) 10 Mg Capsule, 10 MG PO BID Prescribed by: YARIEL BRANHAM on 06/29/212212 Cholecalciferol (Vitamin D3) (Vitamin D3) 50 Mcg (2000 Unit) Capsule, 100 MCG PO DAILY, (Reported) Entered as Reported by: Gracy Bacon on 11/05/22 111 Cyclobenzaprine HCl (Cyclobenzaprine HCl) 10 Mg Tablet, 10 MG PO QID, (Reported) Entered as Reported by: JANESSA LOMBARDI on 03/01/19 1025 Docusate Sodium (Colace) 100 Mg Capsule, 100 MG PO BID, (Reported) Entered as Reported by: JANESSA LOMBARDI on 03/01/19 1025 Doxylamine Succinate (Sleep Aid) 25 Mg Tablet, 25 MG PO HS, (Reported) Entered as Reported by: Gracy Bacon on 11/05/22 111 Dulaglutide (Trulicity) 3 Mg/0.5 Ml Pen.injctr, 3 MG SQ WEEK, (Reported) Entered as Reported by: Gracy Bacon on 11/05/22 1118 Famotidine (Famotidine) 40 Mg Tablet, 40 MG PO BID, (Reported) Entered as Reported by: JANESSA LOMBARDI on 03/01/19 1025 Gabapentin (Gabapentin) 300 Mg Capsule, 600 MG PO QID, (Reported) Entered as Reported by: JANESSA LOMBARDI on 03/01/19 102 Glipizide (Glipizide) 10 Mg Tablet, 10 MG PO BID, (Reported) Entered as Reported by: JANESSA LOMBARDI on 03/01/19 102 Hydroxyzine HCl (Hydroxyzine HCl) 50 Mg Tablet, 50 MG PO Q6H PRN for ITCHING, (Reported) Entered as Reported by: JANESSA LOMBARDI on 03/01/19 102 Levetiracetam (Levetiracetam) 100 Mg/Ml Solution, 10 ML PO BID, (Reported) Entered as Reported by: JANESSA LOMBARDI on 03/01/19 1025 Lisinopril (Lisinopril) 20 Mg Tablet, 20 MG PO DAILY, (Reported) Entered as Reported by: JANESSA LOMBARDI on 03/01/19 1025 Melatonin/Pyridoxine HCl (B6) (Melatonin 10 mg Tablet) 10 Mg-10 Mg Tab.mphase, 1 EACH PO HS, (Reported) Entered as Reported by: Gracy Bacon on 11/05/22 1118 Metoclopramide HCl (Metoclopramide HCl) 5 Mg Tablet, 5 MG PO QID, (Reported) Entered as Reported by: JANESSA LOMBARDI on 03/01/19 102 Metoprolol Tartrate (Metoprolol Tartrate) 50 Mg Tablet, 50 MG PO BID, (Reported) Entered as Reported by: JANESSA LOMBARDI on 03/01/19 1025 Montelukast Sodium (Montelukast Sodium) 10 Mg Tablet, 10 MG PO HS, (Reported) Entered as Reported by: JANESSA LOMBARDI on 03/01/19 1025 Multivitamin/Iron/Folic Acid (Centrum Women Tablet) 18 Mg Iron-400 Mcg Tablet, 1 EACH PO DAILY, (Reported) Entered as Reported by: Gracy Bacon on 11/05/22 1118 [place]-3/Dha/Epa/Fish Oil (Fish Oil 1,000 mg Softgel) 1 Each Capsule, 1 EACH PO DAILY, (Reported) Entered as Reported by: FÉLIX SOLARES on 02/08/20 1856 Omeprazole (Omeprazole) 20 Mg Capsule.dr, 20 MG PO DAILY, (Reported) Entered as Reported by: JANESSA LOMBARDI on 03/01/19 1025 Oxycodone Hcl (Oxyir Tablet) 5 Mg Tablet, 5 MG PO Q4H PRN for PAIN-SEVERE, (R eported) Entered as Reported by: JANESSA LOMBARDI on 03/01/19 1025 Potassium Chloride (Potassium Chloride) 10 Meq Capsule.er, 10 MEQ PO DAILY, (Reported) Entered as Reported by: JANESSA LOMBARDI on 03/01/19 1025 Zinc Gluconate (Zinc) 50 Mg Tablet, 50 MG PO DAILY, (Reported) Entered as Reported by: Gracy Bacon on 11/05/22 1118 Discontinued Medications Docusate Sodium (Colace) 100 Mg Capsule, 100 MG PO HS, (Reported) Discontinued Reason: Duplicate Order Entered as Reported by: JANESSA LOMBARDI on 03/01/19 1025 Dulaglutide (Trulicity) 1.5 Mg/0.5 Ml Pen.injctr, 1.5 MG SC Fr, (Reported) Discontinued Reason: New Order Entered as Reported by: JANESSA LOMBARDI on 03/01/19 1025 Epinephrine (Epipen 2-Cuauhtemoc) 0.3 Mg/0.3 Ml Auto.injct, 0.3 MG IJ Q20M Discontinued Reason: No Longer Taking Prescribed by: YARIEL BRANHAM on 06/29/212212 Famotidine (Pepcid) 20 Mg Tablet, 20 MG PO BID Discontinued Reason: Duplicate Order Prescribed by: YARIEL BRANHAM on 06/29/212212 Famotidine (Pepcid) 20 Mg Tablet, 20 MG PO BID Discontinued Reason: Duplicate Order Prescribed by: YARIEL BRANHAM on 08/15/212117 Prednisone (Prednisone) 20 Mg Tab, 40 MG PO DAILY Discontinued Reason: No Longer Taking Prescribed by: AYRIEL BRANHAM on 06/29/212212 Prednisone (Prednisone) 20 Mg Tab, 40 MG PO DAILY Discontinued Reason: No Longer Taking Prescribed by: YARIEL BRANHAM on 08/15/212117 Sitagliptin Phosphate (Januvia) 100 Mg Tablet, 100 MG PO DAILY, (Reported) Discontinued Reason: Duplicate Order Entered as Reported by: JANESSA LOMBARDI on 03/01/19 1025 Tranexamic Acid (Tranexamic Acid) 650 Mg Tablet, 650 MG PO TID Discontinued Reason: No Longer Taking Prescribed by: FLORIN BATES on 10/14/22 1144 [Multivitamin gummies] , (Reported) Discontinued Reason: No Longer Taking Entered as Reported by: FÉLIX SOLARES on 02/08/201855 [Zinc] , (Reported) Discontinued Reason: No Longer Taking Entered as Reported by: FÉLIX SOLARES on 02/08/201855 YOCASTA IBANEZ DO Nov 09, 2022 08:26
[2022-11-09] MEDS ORDERED: HYDROmorphone 2 MG/ML VIAL (DILAUDID) IV ONE (08:30)
[2022-11-09] MEDS ORDERED: ONDANSETRON 4 MG/2 ML (SDV) Z0FRAN IVP PRN (08:30)
== END 2022-11-09 10:30 | disposition home or self-care (01) ==
LOC: SDC 06:01
PROVIDERS: ATTEND Obstetrics & Gynecology
DX: N92.0 Excessive and frequent menstruation with regular cycle (principal); E11.9 Type 2 diabetes mellitus without complications; E66.9 Obesity, unspecified; D25.9 Leiomyoma of uterus, unspecified; N85.8 Other specified noninflammatory disorders of uterus; Z68.37 Body mass index [BMI] 37.0-37.9, adult; Z79.84 Long term (current) use of oral hypoglycemic drugs; Z79.85 Long-term (current) use of injectable non-insulin antidiabetic drugs
CPT/HCPCS: 82947; 84703; 87081

== ENCOUNTER 2022-11-12 10:36 | Emergency (ER) | payer MEDICARE, MEDICAID ==
[~2022-11-12] VITALS: Ht 157.4 cm; Wt 91.6 kg
[2022-11-12] VITALS (17 sets, daily range): BP systolic 116–134; BP diastolic 70–78
[2022-11-12 11:18] LABS: BASOPHILS # (AUTO) 0.1 10^3/uL (0.0-0.1); BASOPHILS % (AUTO) 1 % (0-10); EOSINOPHILS # (AUTO) 0.2 10^3/uL (0.0-0.3); EOSINOPHILS % (AUTO) 2 % (0-10); LYMPHOCYTES # (AUTO) 2.3 10^3/uL (1.0-4.0); LYMPHOCYTES % (AUTO) 23 % (12-44); MEAN CORPUSCULAR HGB CONC 28 g/dL (32-36); MEAN CORPUSCULAR VOLUME 81 fL (80-99); MEAN PLATELET VOLUME 12.8 fL (9.0-12.2); MONOCYTES # (AUTO) 0.6 10^3/uL (0.0-1.0); MONOCYTES % (AUTO) 6 % (0-12); NEUTROPHILS # (AUTO) 6.5 10^3/uL (1.8-7.8); NEUTROPHILS % (AUTO) 67 % (42-75); PLATELET COUNT 260 10^3/uL (130-400); WHITE BLOOD COUNT 9.6 10^3/uL (4.3-11.0)
[2022-11-12 11:22] LABS: ALBUMIN 3.5 GM/DL (3.2-4.5); POTASSIUM 4.1 MMOL/L (3.6-5.0)
[2022-11-12 11:24] LABS: HEMATOCRIT 20 % (35-52); HEMOGLOBIN 5.6 g/dL (11.5-16.0); MEAN CORPUSCULAR HEMOGLOBIN 22 pg (25-34); TOTAL PROTEIN 6.5 GM/DL (6.4-8.2)
[2022-11-12 11:26] LABS: BILIRUBIN,TOTAL 0.3 MG/DL (0.1-1.0)
[2022-11-12 11:28] LABS: CREATININE SERUM 0.68 MG/DL (0.60-1.30)
[2022-11-12] MEDS ORDERED: NS IV 500 ML 500 ML IV SCH (11:45)
--- NOTE | 2022-11-12 12:06 | ED General ---
General Chief Complaint: General Problems/Pain Stated Complaint: LOW HEMOGLOBIN Nursing Triage Note: PT ARRIVED POV WITH CC OF LOW HEMAGLOBIN AND RIVERA X 2WKS. [facility]UE TO CRITICAL LAB VALUES. PTS MOTHER STATED THAT "PT HAD A HEAVY PERIOD 1 MONTH AGO AND BECAME WHITE AND NEVER GOT HER COLOR BACK". Source of Information: Caregiver Exam Limitations: No Limitations History of Present Illness Date Seen by Provider: Nov 12, 2022 Time Seen by Provider: 11:00 Initial Comments 47-year-old female presents to the ER with reports of low hemoglobin. 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 Patient's mother reports that over the last year and a half patient has had significantly heavy menstrual cycles, states that the bleeding was much worse in the last month. She reports that patient has not been feeling well for quite a while. [facility] [place] yesterday, they obtained blood work which showed hemoglobin of 5.8. They told her to come to the ER. Mother reports that patient had a mass in her uterus removed at this facility this past November [address] Mccormack, TELECOMMUNICATION OPERATOR. Patient's mother reports some spotting since the procedure, but states it is nothing compared to the bleeding she was having prior. Patient's mother denies fevers, nausea, vomiting, diarrhea, constipation. Allergies and Home Medications Allergies Coded Allergies: cefazolin (Verified Allergy, Unknown, 11/05/22) enoxaparin (Verified Allergy, Unknown, 11/05/22) Uncoded Allergies: PENICILLIN (Allergy, Unknown, 07/04/18) Patient Home Medication List Home Medication List Reviewed: Yes Ascorbic Acid (Vitamin C) 500 Mg Capsule, 500 MG PO DAILY, (Reported) Entered as Reported by: Gracy Bacon on 11/05/22 1118 Aspirin (Aspirin EC) 325 Mg Tablet., 325 MG PO DAILY, (Reported) Entered as Reported by: JANESSA LOMBARDI on 03/01/19 1025 Atorvastatin Calcium (Atorvastatin Calcium) 10 Mg Tablet, 10 MG PO DAILY, (Reported) Entered as Reported by: JANESSA LOMBARDI on 03/01/19 1025 Baclofen (Baclofen) 20 Mg Tablet, 20 MG PO QID, (Reported) Entered as Reported by: JANESSA LOMBARDI on 03/01/19 1025 Biotin (Biotin) 1 Mg Tablet, 1,000 MCG PO DAILY, (Reported) Entered as Reported by: Gracy Bacon on 11/05/22 1118 Cetirizine HCl (Zyrtec) 10 Mg Capsule, 10 MG PO BID Prescribed by: YARIEL BRANHAM on 06/29/212212 Cholecalciferol (Vitamin D3) (Vitamin D3) 50 Mcg (2000 Unit) Capsule, 100 MCG PO DAILY, (Reported) Entered as Reported by: Gracy Bacon on 11/05/22 111 Cyclobenzaprine HCl (Cyclobenzaprine HCl) 10 Mg Tablet, 10 MG PO QID, (Reported) Entered as Reported by: JANESSA LOMBARDI on 03/01/19 102 Docusate Sodium (Colace) 100 Mg Capsule, 100 MG PO BID, (Reported) Entered as Reported by: JANESSA LOMBARDI on 03/01/19 102 Doxylamine Succinate (Sleep Aid) 25 Mg Tablet, 25 MG PO HS, (Reported) Entered as Reported by: Gracy Bacon on 11/05/22 111 Dulaglutide (Trulicity) 3 Mg/0.5 Ml Pen.injctr, 3 MG SQ WEEK, (Reported) Entered as Reported by: Gracy Bacon on 11/05/22 111 Famotidine (Famotidine) 40 Mg Tablet, 40 MG PO BID, (Reported) Entered as Reported by: JANESSA LOMBARDI on 03/01/19 102 Gabapentin (Gabapentin) 300 Mg Capsule, 600 MG PO QID, (Reported) Entered as Reported by: JANESSA LOMBARDI on 03/01/19 102 Glipizide (Glipizide) 10 Mg Tablet, 10 MG PO BID, (Reported) Entered as Reported by: JANESSA LOMBARDI on 03/01/19 102 Hydroxyzine HCl (Hydroxyzine HCl) 50 Mg Tablet, 50 MG PO Q6H PRN for ITCHING, (Reported) Entered as Reported by: JANESSA LOMBARDI on 03/01/19 102 Levetiracetam (Levetiracetam) 100 Mg/Ml Solution, 10 ML PO BID, (Reported) Entered as Reported by: JANESSA LOMBARDI on 03/01/19 1025 Lisinopril (Lisinopril) 20 Mg Tablet, 20 MG PO DAILY, (Reported) Entered as Reported by: JANESSA LOMBARDI on 03/01/19 1025 Melatonin/Pyridoxine HCl (B6) (Melatonin 10 mg Tablet) 10 Mg-10 Mg Tab.mphase, 1 EACH PO HS, (Reported) Entered as Reported by: Gracy Bacon on 11/05/22 1118 Metoclopramide HCl (Metoclopramide HCl) 5 Mg Tablet, 5 MG PO QID, (Reported) Entered as Reported by: JANESSA LOMBARDI on 03/01/19 1025 Metoprolol Tartrate (Metoprolol Tartrate) 50 Mg Tablet, 50 MG PO BID, (Reported) Entered as Reported by: JANESSA LOMBARDI on 03/01/19 102 Montelukast Sodium (Montelukast Sodium) 10 Mg Tablet, 10 MG PO HS, (Reported) Entered as Reported by: JANESSA LOMBARDI on 03/01/19 102 Multivitamin/Iron/Folic Acid (Centrum Women Tablet) 18 Mg Iron-400 Mcg Tablet, 1 EACH PO DAILY, (Reported) Entered as Reported by: Gracy Bacon on 11/05/22 111 [place]-3/Dha/Epa/Fish Oil (Fish Oil 1,000 mg Softgel) 1 Each Capsule, 1 EACH PO DAILY, (Reported) Entered as Reported by: FÉLIX SOLARES on 02/08/20 1856 Omeprazole (Omeprazole) 20 Mg Capsule.dr, 20 MG PO DAILY, (Reported) Entered as Reported by: JANESSA LOMBARDI on 03/01/19 102 Oxycodone Hcl (Oxyir Tablet) 5 Mg Tablet, 5 MG PO Q4H PRN for PAIN-SEVERE, (Reported) Entered as Reported by: JANESSA LOMBARDI on 03/01/19 102 Potassium Chloride (Potassium Chloride) 10 Meq Capsule.er, 10 MEQ PO DAILY, (Reported) Entered as Reported by: JANESSA LOMBARDI on 03/01/19 102 Zinc Gluconate (Zinc) 50 Mg Tablet, 50 MG PO DAILY, (Reported) Entered as Reported by: Gracy Bacon on 11/05/22 111 Discontinued Medications Docusate Sodium (Colace) 100 Mg Capsule, 100 MG PO HS, (Reported) Discontinued Reason: Duplicate Order Entered as Reported by: JANESSA LOMBARDI on 03/01/19 1025 Dulaglutide (Trulicity) 1.5 Mg/0.5 Ml Pen.injctr, 1.5 MG SC Fr, (Reported) Discontinued Reason: New Order Entered as Reported by: JANESSA LOMBARDI on 03/01/19 1025 Epinephrine (Epipen 2-Cuauhtemoc) 0.3 Mg/0.3 Ml Auto.injct, 0.3 MG IJ Q20M Discontinued Reason: No Longer Taking Prescribed by: YARIEL BRANHAM on 06/29/212212 Famotidine (Pepcid) 20 Mg Tablet, 20 MG PO BID Discontinued Reason: Duplicate Order Prescribed by: YARIEL BRANHAM on 06/29/212212 Famotidine (Pepcid) 20 Mg Tablet, 20 MG PO BID Discontinued Reason: Duplicate Order Prescribed by: YARIEL BRANHAM on 08/15/212117 Prednisone (Prednisone) 20 Mg Tab, 40 MG PO DAILY Discontinued Reason: No Longer Taking Prescribed by: YARIEL BRANHAM on 06/29/212212 Prednisone (Prednisone) 20 Mg Tab, 40 MG PO DAILY Discontinued Reason: No Longer Taking Prescribed by: YARIEL BRANHAM on 08/15/212117 Sitagliptin Phosphate (Januvia) 100 Mg Tablet, 100 MG PO DAILY, (Reported) Discontinued Reason: Duplicate Order Entered as Reported by: JANESSA OLMBARDI on 03/01/19 1025 Tranexamic Acid (Tranexamic Acid) 650 Mg Tablet, 650 MG PO TID Discontinued Reason: No Longer Taking Prescribed by: FLORIN BATES on 10/14/22 1144 [Multivitamin gummies] , (Reported) Discontinued Reason: No Longer Taking Entered as Reported by: FÉLIX SOLARES on 02/08/20 185 [Zinc] , (Reported) Discontinued Reason: No Longer Taking Entered as Reported by: FÉLIX SOLARES on 02/08/20 185 Review of Systems Review of Systems Constitutional: see HPI Past [id number] Hx Patient Social History Tobacco Use?: No Substance use?: No Alcohol Use?: No Immunizations Up To Date Tetanus Booster (TDap): Unknown First/Initial COVID19 Vaccinat: 07/16/20 Second COVID19 Vaccination Solomon: 08/13/20 Third COVID19 Vaccination Date: NO Seasonal Allergies Seasonal Allergies: Yes Past Medical History Surgery/Hospitalization HX: CVA w/ craniotomy 2014, ej; HTN; DM Surgeries: Yes (cranial-cva) Gallbladder Respiratory: Yes (O2 USE AT HS) Currently Using CPAP: No Cardiac: Yes High Cholesterol, Hypertension Neurological: Yes (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) Headaches /Migraines, Paralysis, Spinal Cord Injury Female Reproductive Disorders: Endometriosis Sexually Transmitted Disease: No Genitourinary: Yes UTI-Chronic Gastrointestinal: Yes Chronic Constipation, Gall Bladder Disease Musculoskeletal: No Chronic Back Pain Endocrine: Yes Diabetes, Non-Insulin dep HEENT: No (WEARS GLASSES) Loss of Vision: Denies Hearing Impairment: Denies Cancer: No Psychosocial: No Anxiety Integumentary: No Blood Disorders: No Adverse Reaction/Blood Tranf: No Family Medical History No Pertinent Family Hx Physical Exam Vital Signs Vital Signs - First Documented 11/12/22 11/12/22 10:45 12:35 Temp 36.9 Pulse 105 Resp 13 B/P (MAP) 115/69 (84) Pulse Ox 93 O2 Delivery Room Air Capillary Refill : Height, Weight, BMI Height: 5'2.00" Weight: 213lbs. 0oz. 96.415403uf; 36.00 BMI Method:Stated General Appearance: No Apparent Distress, WD/WN HEENT: Pale Conjunctivae (L), Pale Conjunctivae (R) Neck: Normal Inspection, Supple Respiratory: Lungs Clear, Normal Breath Sounds, No Accessory Muscle Use, No Respiratory Distress Cardiovascular: Tachycardia Genital/Rectal: Other (Small amount of red-colored discharge from cervix) Extremity: Normal Inspection, Normal Range of Motion Neurologic/Psychiatric: Alert, Normal Mood/Affect Skin: Warm/Dry, Pallor Progress/Results/Core Measures Suspected Sepsis SIRS Temperature: Pulse: 105 Respiratory Rate: Laboratory Tests 11/12/22 11:04: White Blood Count 9.6 Blood Pressure 115 /69 Mean: 84 Laboratory Tests 11/12/22 11:04: Creatinine 0.68, Platelet Count 260, Total Bilirubin 0.3 Results/Orders Lab Results Laboratory Tests Test 11/12/22 11:04 Range/Units White Blood Count 9.6 4.3-11.0 10^3/uL Red Blood Count 2.49 L 3.80-5.11 10^6/uL Hemoglobin 5.6 *L 11.5-16.0 g/dL Hematocrit 20 *L 35-52 % Mean Corpuscular Volume 81 80-99 fL Mean Corpuscular Hemoglobin 22 L 25-34 pg Mean Corpuscular Hemoglobin Concent 28 L 32-36 g/dL Red Cell Distribution Width 17.4 H 10.0-14.5 % Platelet Count 260 130-400 10^3/uL Mean Platelet Volume 12.8 H 9.0-12.2 fL Immature Granulocyte % (Auto) 1 % Neutrophils (%) (Auto) 67 42-75 % Lymphocytes (%) (Auto) 23 12-44 % Monocytes (%) (Auto) 6 0-12 % Eosinophils (%) (Auto) 2 0-10 % Basophils (%) (Auto) 1 0-10 % Neutrophils # (Auto) 6.5 1.8-7.8 10^3/uL Lymphocytes # (Auto) 2.3 1.0-4.0 10^3/uL Monocytes # (Auto) 0.6 0.0-1.0 10^3/uL Eosinophils # (Auto) 0.2 0.0-0.3 10^3/uL Basophils # (Auto) 0.1 0.0-0.1 10^3/uL Immature Granulocyte # (Auto) 0.1 0.0-0.1 10^3/uL Sodium Level 137 135-145 MMOL/L Potassium Level 4.1 3.6-5.0 MMOL/L Chloride Level 103 98-107 MMOL/L Carbon Dioxide Level 24 21-32 MMOL/L Anion Gap 10 5-14 MMOL/L Blood Urea Nitrogen 7 7-18 MG/DL Creatinine 0.68 0.60-1.30 MG/DL Estimat Glomerular Filtration Rate 109 BUN/Creatinine Ratio 10 Glucose Level 251 H 70-105 MG/DL Calcium Level 9.0 8.5-10.1 MG/DL Corrected Calcium 9.4 8.5-10.1 MG/DL Total Bilirubin 0.3 0.1-1.0 MG/DL Aspartate Amino Transf (AST/SGOT) 16 5-34 U/L Alanine Aminotransferase (ALT/SGPT) 17 0-55 U/L Alkaline Phosphatase 120 40-136 U/L Total Protein 6.5 6.4-8.2 GM/DL Albumin 3.5 3.2-4.5 GM/DL My Orders Orders - CHRIS COH APRN Cbc With Automated Diff (11/12/22 11:11) Comprehensive Metabolic Panel (11/12/22 11:11) Type And Screen (11/12/22 11:11) Vital Signs: Special (Order) (11/12/22 11:43) Consent-Obtain Consent For (11/12/22 11:43) Monitor S/S Transfusion Reacti (11/12/22 11:43) Ns Iv 500 Ml (Sodium Chloride 0.9%) (11/12/22 11:45) Red Cells Leukocytes Reduced (11/12/22 11:43) Diphenhydramine Injection (Benadryl Inje (11/12/22 13:15) Gabapentin Capsule/Tablet (Neurontin Cap (11/12/22 13:30) Cyclobenzaprine Tablet (Flexeril Tablet) (11/12/22 13:30) Baclofen Tablet (Lioresal Tablet) (11/12/22 13:30) Metoclopramide Tablet (Reglan Tablet) (11/12/22 13:30) Ed Iv/Invasive Line Start (11/12/22 15:17) Ns Iv 500 Ml (Sodium Chloride 0.9%) (11/12/22 15:30) Acetaminophen Tablet (Tylenol Tablet) (11/12/22 17:45) Medications Given in ED Current Medications Medications Dose Ordered Sig/Milly Route Start Time Stop Time Status Last Admin Dose Admin Acetaminophen 1,000 mg ONCE ONCE PO 11/12/22 17:45 11/12/22 17:46 DC 11/12/22 17:39 1,000 MG Baclofen 20 mg ONCE ONCE PO 11/12/22 13:30 11/12/22 13:31 DC 11/12/22 14:02 20 MG Cyclobenzaprine HCl 10 mg ONCE ONCE PO 11/12/22 13:30 11/12/22 13:31 DC 11/12/22 13:51 10 MG Diphenhydramine HCl 25 mg ONCE ONCE IVP 11/12/22 13:15 11/12/22 13:16 DC 11/12/22 13:07 25 MG Gabapentin 300 mg ONCE ONCE PO 11/12/22 13:30 11/12/22 13:31 DC 11/12/22 13:51 300 MG Metoclopramide HCl 5 mg ONCE ONCE PO 11/12/22 13:30 11/12/22 13:31 DC 11/12/22 14:02 5 MG Sodium Chloride 500 ml @ 0 mls/hr Q0M ONCE IV 11/12/22 15:30 11/12/22 15:31 DC 11/12/22 15:34 0 MLS/HR Vital Signs/I&O 11/12/22 11/12/22 11/12/22 11/12/22 10:45 12:35 12:40 12:45 Temp 36.9 36.9 36.9 37.0 Pulse 105 99 98 98 Resp 13 14 16 B/P (MAP) 115/69 (84) 118/72 122/74 120/73 Pulse Ox 93 95 96 96 O2 Delivery Room Air Room Air Room Air Room Air 11/12/22 11/12/22 11/12/22 11/12/22 12:50 12:53 13:30 13:35 Temp 36.2 36.3 36.9 36.9 Pulse 97 94 96 96 Resp 17 14 17 16 B/P (MAP) 123/74 118/74 116/72 121/71 Pulse Ox 96 96 97 96 O2 Delivery Room Air Room Air Room Air Room Air 11/12/22 11/12/22 11/12/22 11/12/22 13:40 13:45 13:53 15:40 Temp 36.4 36.5 36.4 36.7 Pulse 96 96 96 93 Resp 17 16 16 16 B/P (MAP) 122/72 123/75 118/71 120/70 Pulse Ox 96 97 98 96 O2 Delivery Room Air Room Air Room Air Room Air 11/12/22 11/12/22 11/12/22 11/12/22 15:45 15:50 15:55 16:00 Temp 37.0 36.7 36.8 36.9 Pulse 93 93 92 94 Resp 16 16 14 B/P (MAP) 116/74 117/73 119/71 120/72 Pulse Ox 97 97 97 97 O2 Delivery Room Air Room Air Room Air Room Air 11/12/22 11/12/22 17:35 18:57 Temp 37.2 Pulse 90 98 Resp 17 B/P (MAP) 123/74 134/78 Pulse Ox 98 97 O2 Delivery Room Air Room Air Capillary Refill : 2 Blood Pressure Mean: 84 Progress Note : Progress Note Patient seen and evaluated, resting comfortably in bed, no acute distress, skin is very pale. Based on exam and symptoms, work-up initiated including CBC, CMP, type and screen. 1145 labs reviewed. CBC shows decreased RBCs 2.49, critically low hemoglobin 5.6, critically low hematocrit 28, MCV normal at 81, MCH low at 22, MCHC low 28, RDW high 17.4, platelets normal 260. CMP grossly normal, glucose elevated 251. 2 units of packed red blood cells ordered. [address] Mccormack, TELECOMMUNICATION OPERATOR, regarding patient's low hemoglobin. She agrees that we can administer blood here and have her follow-up outpatient with Dr. Mccormack next week. 1327 patient reported allover body itching during blood transfusion. Transfusion was paused, Benadryl was given. I called blood bank to see if it was okay to restart the transfusion if symptoms improve. Blood bank personnel spoke with Dr. Restrepo, pathologist, who stated that we should give Benadryl and stop the infusion. We may restart the infusion if itching goes away. If she develops any other reaction, we will stop the transfusion and consider this a reaction. Itching has improved after Benadryl. Will restart the blood transfusion at this time. 1605 itching improved after Benadryl, we were able to restart the transfusion. Second transfusion has been started. Plan of care discussed with patient and patient's mother. Will discharge after second unit of blood and have patient follow-up with Dr. Mccormack next week as scheduled. 1850 second unit of blood complete. Patient had a slight increase in temperature towards the end of the infusion. Tylenol was ordered. Temperature has returned to normal. Will discharge at this time. Discharge instructions and return precautions provided. Departure Impression Primary Impression: Anemia Qualified Codes: D50.0 - Iron deficiency anemia secondary to blood loss (chronic) Disposition: HOME, SELF-CARE Condition: Stable Departure-Patient Inst. Decision time for Depature: 18:50 Referrals: [facility] (PCP/Family) Primary Care Physician Patient Instructions: Blood transfusion Add. Discharge Instructions: Follow-up with Dr. Mccormack next week as scheduled. Return for significant vaginal bleeding, dizziness, passing out, chest pain or shortness of breath, or any other new, concerning, or worsening symptoms. All discharge instructions reviewed with patient and/or family. Voiced understanding. CHRIS CHO APRN Nov 12, 2022 12:05
[2022-11-12] MEDS ORDERED: diphenhydrAMINE 50 MG/ML INJ (BENADRYL) IVP ONE (13:15)
[2022-11-12] MEDS ORDERED: GABAPENTIN 300 MG (NEURONTIN) CAP PO ONE (13:30)
[2022-11-12] MEDS ORDERED: METOCLOPRAMIDE 5 MG (REGLAN) TAB PO ONE (13:30)
[2022-11-12] MEDS ORDERED: BACLOFEN 10 MG (LIORESAL) TAB PO ONE (13:30)
[2022-11-12] MEDS ORDERED: CYCLOBENZAPRINE 10 MG (FLEXERIL) TAB PO ONE (13:30)
[2022-11-12] MEDS ORDERED: NS IV 500 ML 500 ML IV ONE (15:30)
[2022-11-12] MEDS ORDERED: ACETAMINOPHEN 500 MG TAB (TYLENOL) PO ONE (17:45)
== END 2022-11-12 18:57 | disposition home or self-care (01) ==
LOC: EDUNIT# 10:36 → ER 10:37
DX: D64.9 Anemia, unspecified (principal); E11.9 Type 2 diabetes mellitus without complications; Z99.81 Dependence on supplemental oxygen
CPT/HCPCS: 36430; 80053; 85025; 86850; 86900; 86901; 86920; 99285; P9016; 36415